=== PATIENT | female | born 1960 | race Caucasian/White ===

== ENCOUNTER 2023-04-13 08:37 | Outpatient (OUT) | payer OTHER, SELFPAY ==
--- NOTE | 2023-04-13 | PCN_ITS ---
CARDIAC STRESS TEST Requesting Physician: Procedure Date: 04/13/2023 This was a treadmill exercise stress test with myocardial perfusion imaging, performed at the [facility] on 04/13/2023. Informed consent was obtained. An intravenous line was secured. Baseline vital signs and ECG were obtained. The patient exercised on the treadmill according to the Naren protocol for 5 minutes and 45 seconds and reached stage 2 of the Naren protocol and achieved 7 METS. Resting heart rate was 65 BPM and maximum heart rate was 157 BPM, representing 100% of maximal predicted heart rate. Resting blood pressure was 124/68 and maximum blood pressure was 176/80. The patient had no chest pain during treadmill exercise. She developed dizziness and shortness of breath at the end of the test that resolved within 2 minutes of resting. Resting ECG showed sinus rhythm with PACs and non-specific ST segment depressions in leads 2, 3, AVF, V4, V5 and V6. ECG during treadmill exercise showed evidence of sinus rhythm and sinus tachycardia with occasional PACs. There were occasional PVCs. ECG at peak exercise and early recovery showed evidence of [address] segment depressions in leads 2, 3, AVF, V4, V5 and V6. Final ECG showed that the ST segment changes returned to nearly baseline at about 8 minutes into the recovery period. SUMMARY OF THE FINDINGS: 1. Abnormal treadmill exercise stress test with worsening of baseline ECG abnormalities and evidence of significant ST segment depressions in leads 2, 3, AVF and V4, V5 and V6. 2. Mildly elevated blood pressure at baseline with appropriate response to exercise. 3. Peralta treadmill score of -4 is associated with intermediate risk for custodial cardiac events. 4. Myocardial perfusion imaging will be reported separately. JANNY
--- NOTE | 2023-04-13 07:45 | NM_ITS ---
Patient Name: YENNIFER CAMP MR#: [id number] : 1960 Exam Date: 04/13/2023 Ordering Doctor: MRS. Grabiel Mares NP RADIOLOGY REPORT PROCEDURE: NM QUAN PERF SPECT REST STR COMPARISON: None. INDICATIONS: CHEST PAIN, CORONARY ARTERY DISEASE TECHNIQUE: Exam Description: Stress/Rest one day protocol gated SPECT Rest Imagin.0 mCi Tc-99m Cardiolite IV on 04/13/2023 Stress Imaging 30.3 mCi Tc-99m Cardiolite IV on 04/13/2023 Exercise Protocol: Naren Heart Rate (bpm): Rest: 65 Max: 157 PMHR: 100 Blood Pressure: Rest: 124/68 Max: 176/80 Exercise Time: Minutes: 5 Seconds: 45 Stage Reached: Stage: 2 Mets 7.0 Symptoms: Rest and peak stress ECG findings were pending and the exercise portion of the study was pending per attending physician Dr. CUENCA . For more details please see separate cardiac stress test report. FINDINGS: QUALITY OF STUDY: Good. PERFUSION DEFECT: None. LOCATION: N/A SIZE: N/A. SEVERITY: N/A. TYPE: N/A. WALL MOTION: Normal. LV SIZE: Normal. 49 mL. TID / TCD: None; 0.8 LVEF: Normal. Calculated EF 91%. SUMMARY: Myocardial perfusion imaging study is NORMAL. CONCLUSION: 1. Normal myocardial perfusion scan, no reversible ischemia 2. Pending exercise test results Dictated by: Sabino Chambers MD on 04/13/2023 at 14:35 Approved by: Sabino Chambers MD on 04/13/2023 at 15:04
--- OUTSIDE RECORDS SUMMARY | 2023-04-21 18:41 | XMS_ITS | CCD ---
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 Name Role Phone IGOR BRAKLEY Attending Unavailable IGOR BARKLEY Consulting Unavailable IGOR BARKLEY Admitting Unavailable KAIT ARCHER Admitting Unavailable KAIT ARCHER Attending Unavailable KAIT ARCHER Consulting Unavailable MD Kait Archer Primary Care Provider MD Dave Cantu Attending Provider DO Ghulam Thrasher Attending Provider [phone] MD Kait Archer Primary Care Provider MD Oscar Riojas Attending Provider [phone] Oscar Riojas Unavailable Addie [facility] Care Unavailable Oscar Riojas Admitting Unavaila Oscar Rene Attending Unavaila ble [facility] Dave Cantu Admitting Unavailable Dave Cantu [facility] Ghulam Thrasher Admitting Unavailable Ghulam Thrasher Attending Unavailable Oscar Riojas Admitting Unavaila ble Oscar Riojas Attending Unavaila ble [facility] Un[facility] DONALDO LUO Attending Unavailable AUGUSTO AGUILERA Attending Unavailable Allergies Allergy Classification Reported Allergen(s) Allergy Type Date of Onset Reaction(s) Facility (2 sources) Codeine; Translations: [CODEINE] Drug Allergy 01-05-2014 [facility] Repository (1 source) Codeine Drug Allergy Unknown AIRTAME Other (1 source) Unable to Assess Drug allergy (disorder) 09-20-2018 [facility] Repository (1 source) atorvastatin; Translations: [ATORVASTATIN] Drug Allergy 04-14-2023 [facility] Repository Medications Current Medications Medication Drug Class(es) Dates Sig (Normalized) Sig (Original) ibuprofen 200 mg oral capsule (1 source) Nonsteroidal Anti-inflammatory Drug take 1 capsule by mouth every eight hours Ibuprofen 200 MG 1 capsule with food or milk as needed Orally Three times a day Active latanoprost 0.05 mg/ml ophthalmic solution (1 source) Prostaglandin Analog take 1 drop(s) into the eye(s) once daily in the evening Latanoprost 0.005 % INSTILL 1 DROP IN BOTH EYES EVERY EVENING Ophthalmic for 25 Days Active loperamide hydrochloride 2 mg oral tablet (1 source) Opioid Agonist take 1 tablet by mouth every six hours Imodium A-D 2 MG 1 tablet as needed Orally Four times a day Active ProAir HFA 108 (90 Base) MCG/ACT (1 source) take 2 puff(s) by inhalation four times daily as needed ProAir HFA 108 (90 Base) MCG/ACT 2 puffs as needed Inhalation up to 4 times/day for 30 days Active Problems Problem Classification Problem Date Documented Date Episodic/Chronic Asthma (3 sources) Reactive airway disease; Translations: [Unspecified asthma, uncomplicated] Onset: 11-26-2021 Chronic Cardiac dysrhythmias (2 sources) Ventricular premature depolarization; Translations: [Ventricular premature depolarization] Onset: 04-14-2023 Chronic Cardiac dysrhythmias (2 sources) Palpitations; Translations: [Palpitations] Onset: 04-14-2023 Episodic Chronic obstructive pulmonary disease and bronchiectasis (1 source) Chronic obstructive lung disease; Translations: [Chronic obstructive pulmonary disease, unspecified] Chronic Coronary atherosclerosis and other heart disease (2 sources) Atherosclerotic heart disease of [place] coronary artery without angina pectoris; Translations: [Atherosclerotic heart disease of [place] coronary artery without angina pectoris] Onset: 03-05-2023 Chronic Immunizations and screening for infectious disease (4 sources) Contact with and (suspected) exposure to other viral communicable diseases; Translations: [CONTCT EXPS OTH VIRL COMMUNICABL DZ] Onset: 03-22-2020 Episodic Nonspecific chest pain (2 sources) Chest pain, unspecified; Translations: [Chest pain, unspecified] Onset: 03-05-2023 Episodic Osteoarthritis (1 source) Primary generalized (osteo)arthritis; Translations: [Primary generalized (osteo)arthritis] Onset: 2022 Chronic Other lower respiratory disease (1 source) Restrictive lung disease; Translations: [Other disorders of lung] Episodic Other lower respiratory disease (2 sources) Other disorders of lung; Translations: [Other disorders of lung] Onset: 10-23-2022 Episodic Pulmonary heart disease (2 sources) Pulmonary hypertension, unspecified; Translations: [Pulmonary hypertension, unspecified] Onset: 03-05-2023 Chronic Residual codes; unclassified (2 sources) Other specified postprocedural states; Translations: [Other specified postprocedural states] Onset: 04-14-2023 Episodic Unclassified (1 source) Encounter for screening mammogram for malignant neoplasm of breast; Translations: [Encounter for screening mammogram for malignant neoplasm of breast] Onset: 08-30-2022 Results Test Name Value Interpretation Reference Range Facil ity Office Visiton 04-14-2023 Follow-up visit [id number] Selam Yee 1960 F Date Provider Department Center 04/14/2023 DONALDO LORENZANA DELMY [facility] Family History Problem Relation Age of Onset Heart attack Mother Family Status - Relation Status Age at Mother Level of Service:95120 [place] OFFICE/OUTPATIENT ESTABLISHED MOD MDM 30-39 MIN Normal [facility] Office Visiton 03-05-2023 Follow-up visit [id number] Selam Yee 1960 F Date Provider Department Center 03/05/2023 AUGUSTO TILLEY DELMY [facility] Family History Problem Relation Age of Onset Heart attack Mother Family Status - Relation Status Age at Mother Level of Service:90848 [place] OFFICE/OUTPATIENT NEW MODERATE MDM 45-59 MINUTES Normal [facility] MM screening mammo BI w/CADo n 09-01-2022 MM screening mammo BI w/CAD [facility] [address] Mammography Report Signed Patient: Valerie Yee MR#: [id number] : 1960 Acct:[id number] Age/Sex: 62 / F ADM Date: 08/30/22 Loc: IN Room: Type: [facility] Attending Dr: Ghulam Thrasher DO Copies to: MD Ghulam Shi DO Ordering Provider: Ghulam Thrasher DO Date of Service: 08/30/22 MM/MM screening mammo BI w/CAD: screening;Encounter for screening mammogram for malignant ne CLINICAL DATA: Screening for malignancy. BILATERAL SCREENING MAMMOGRAMS - FULL FIELD DIGITAL WITH TOMOSYNTHESIS AND CAD Tomosynthesis craniocaudal and mediolateral oblique views of both breasts were obtained using low- dose digital technique. Comparison is made to prior studies from April 29, 2019 through August 03, 2021. This examination was reviewed with the aid of CAD. The breast parenchyma is heterogeneously dense. There are no dominant masses, typically malignant calcifications or architectural distortion. There has been no significant interval change. MM/MM screening mammo BI w/CAD IMPRESSION: NO MAMMOGRAPHIC EVIDENCE OF MALIGNANCY. ROUTINE FOLLOW-UP IS RECOMMENDED IN ONE YEAR. RESULT CODE: 1 Negative DENSITY CODE: 3 (approximately 51-75% glandular) FOLLOW UP: 1YR The false-negative rate of mammography is approximately 10-percent. Management of a palpable abnormality must be based on clinical grounds. Patient was entered into a reminder system with a target due date for the next mammogram. Impression dictated by: Dipti Dupree M.D.09/01/2022 7:14 AM Dictation Location: [facility] Transcribed By: PATTI 09/01/22 07 Dictated By: Dipti Dupree MD 09/01/2212 Signed By: 09/01/2214 Normal [facility] Alanine aminotransferase [En zymatic activity/volume] in Serum or PlasmaOrdered By: Torrey Cantu on 2022 ALT [Catalytic activity/Vol] 37 U/L 7-52 [facility] Albumin [Mass/volume] in Ser um or Plasma by Bromocresol green (BCG) dye binding methoOrdered By: Torrey Cantu on 2022 Albumin BCG dye [Mass/Vol] 4.7 g/dL 3.5-5.7 [facility] Alkaline phosphatase [Enzyma tic activity/volume] in Serum or PlasmaOrdered By: Torrey Cantu on 2022 ALP [Catalytic activity/Vol] 112 U/L 34-104 [facility] Aspartate aminotransferase [ Enzymatic activity/volume] in Serum or PlasmaOrdered By: Torrey Cantu on 2022 AST [Catalytic activity/Vol] 23 U/L 13-39 [facility] Basophils Auto (Bld) [#/Vol] Ordered By: Torrey Cantu on 2022 Basophils (Bld) [#/Vol] 0.0 10*3/uL 0.0-0.2 [facility] Basophils/100 WBC Auto (Bld) Ordered By: Torrey Cantu on 2022 Basophils/100 WBC (Bld) 0.6 % . [facility] Bilirubin Test strip Ql (U)O rdered By: Torrey Cantu on 2022 Bilirubin Ql (U) Negative Negative [facility] Bilirubin.total [Mass/volume ] in Serum or PlasmaOrdered By: Torrey Cantu on 2022 Bilirubin [Mass/Vol] 0.9 mg/dL 0.3-1.0 [facility] Calcium [Mass/volume] in Ser um or PlasmaOrdered By: Torrey Cantu on 2022 Calcium [Mass/Vol] 9.6 mg/dL 8.6-10.3 [facility] Carbon dioxide, total [Moles /volume] in Serum or PlasmaOrdered By: Torrey Cantu on 2022 CO2 [Moles/Vol] 28.4 mmol/L 21.0-31.0 [facility] Chloride [Moles/volume] in S jus or PlasmaOrdered By: Torrey Cantu on 2022 Chloride [Moles/Vol] 105 mmol/L 98-107 [facility] Color Auto (U)Ordered By: Rebekah Cantu on 2022 Color (U) Yellow Yellow [facility] Complement C3on 2022 Complement C3 155 mg/dL Normal 82-167 [facility] Comment on above: Result Comment: Perf ormed at: CB - [facility] [id number] Photoengraver Apprentice: Sd Lombardo PhD, Phone: [phone] Performed By: #### C BC, ESR, CMP, UA #### [address] #### C4, CH50, C3 #### [facility] , Complement C4on 2022 Complement C4 32 mg/dL Normal 12-38 [facility] Comment on above: Result Comment: PERF ORMED BY: [place] [address] PATHOLOGIST ORGANIC CHEMISTRY PROFESSOR MELODIE GILES M.D. Performed By: #### C BC, ESR, CMP, UA #### [address] #### C4, CH50, C3 #### [facility] , Complement Total (CH50)on Complement Total (CH50) >60 Normal >41 [facility] Comment on above: Result Comment: Age Male Female 1 - 30 days Not Estab. Not Estab. 31 days - 6 months >32 >20 7 months - 17 years >39 >39 >17 years >41 >41 NOTE: The adult ( >17 years ) reference interval range is used to flag abnormals on this report. If the patient is 17 years old or younger, use the table above to determine out of range values. Performed at: - [facility] [id number] Photoengraver Apprentice: Sd Lombardo PhD, Phone: [phone] PERFORMED BY: [place] [address] PATHOLOGIST ORGANIC CHEMISTRY PROFESSOR MELODIE GILES M.D. Performed By: #### C BC, ESR, CMP, UA #### [address] #### C4, CH50, C3 #### [facility] , Complete Blood Count Auto Di ffon 2022 Basophils (Bld) [#/Vol] 0.0 10*3/uL Normal 0.0-0.2 [facility] Comment on above: Performed By: #### C BC, ESR, CMP, UA #### [facility] [address] [place] [address] [place] #### C4, CH50, C3 #### [facility] , Basophils/100 WBC (Bld) 0.6 % Normal . [facility] Comment on above: Performed By: #### C BC, ESR, CMP, UA #### [place] [address] [place] #### C4, CH50, C3 #### [facility] , Eosinophils (Bld) [#/Vol] 0.1 10*3/uL Normal 0.0-0.45 [facility] Comment on above: Performed By: #### C BC, ESR, CMP, UA #### [place] [address] [place] #### C4, CH50, C3 #### [facility] , Eosinophils/100 WBC (Bld) 2.0 % Normal . [facility] Comment on above: Performed By: #### C BC, ESR, CMP, UA #### [place] [address] [place] #### C4, CH50, C3 #### [facility] , Erythrocyte distribution wid th (RBC) [Ratio] 13.5 % Normal 11.9-15.3 [facility] Comment on above: Performed By: #### C BC, ESR, CMP, UA #### [facility] [address] [place] [address] [place] #### C4, CH50, C3 #### [facility] , Hematocrit (Bld) [Volume fraction] 41.0 % Normal 34.0-46.4 [facility] Comment on above: Performed By: #### C BC, ESR, CMP, UA #### [facility] [address] [place] [address] [place] #### C4, CH50, C3 #### [facility] , Hemoglobin (Bld) [Mass/Vol] 13.6 g/dL Normal 11.8-15. 4 [facility] Comment on above: Performed By: #### C BC, ESR, CMP, UA #### [facility] [address] [place] [address] [place] #### C4, CH50, C3 #### [facility] , Lymphocytes (Bld) [#/Vol] 1.2 10*3/uL Normal 1.00-4.8 [facility] Comment on above: Performed By: #### C BC, ESR, CMP, UA #### [address] #### C4, CH50, C3 #### [facility] , Lymphocytes/100 WBC (Bld) 21.0 % Normal . [facility] Comment on above: Performed By: #### C BC, ESR, CMP, UA #### [facility] [address] [place] [address] [place] #### C4, CH50, C3 #### [facility] , MCH (RBC) [Entitic mass] 29.2 pg Normal 24.7-34.3 [facility] Comment on above: Performed By: #### C BC, ESR, CMP, UA #### [place] [address] [place] #### C4, CH50, C3 #### [facility] , MCV (RBC) [Entitic vol] 87.7 fL Normal 80-100 [facility] Comment on above: Performed By: #### C BC, ESR, CMP, UA #### [place] [address] [place] #### C4, CH50, C3 #### [facility] , Mean Corpuscular HGB Conc 33.3 g/dL Normal 32.0-35.0 [facility] Comment on above: Performed By: #### C BC, ESR, CMP, UA #### [facility] [address] [place] [address] [place] #### C4, CH50, C3 #### [facility] , Monocytes (Bld) [#/Vol] 0.3 10*3/uL Normal 0.0-0.8 [facility] Comment on above: Performed By: #### C BC, ESR, CMP, UA #### [facility] [address] [place] [address] [place] #### C4, CH50, C3 #### [facility] , Monocytes/100 WBC (Bld) 5.7 % Normal . [facility] Comment on above: Performed By: #### C BC, ESR, CMP, UA #### [facility] [address] [place] [address] [place] #### C4, CH50, C3 #### [facility] , Neutrophils (Bld) [#/Vol] 4.0 10*3/uL Normal 1.8-7.7 [facility] Comment on above: Performed By: #### C BC, ESR, CMP, UA #### [facility] [address] [place] [address] [place] #### C4, CH50, C3 #### [facility] , Neutrophils/100 WBC (Bld) 70.7 % Normal . [facility] Comment on above: Performed By: #### C BC, ESR, CMP, UA #### [facility] [address] [place] [address] [place] #### C4, CH50, C3 #### [facility] , NRBC% 0.0 /100{WBC} Normal 0-0.5 [facility] Comment on above: Performed By: #### C BC, ESR, CMP, UA #### [facility] [address] [place] [address] #### C4, CH50, C3 #### [facility] , Platelet mean volume (Bld) [Entitic vol] 8.8 fL Normal 6.3-10.7 [facility] Comment on above: Performed By: #### C BC, ESR, CMP, UA #### [facility] [address] [place] [address] [place] #### C4, CH50, C3 #### [facility] , Platelets (Bld) [#/Vol] 166 10*3/uL Normal 150-450 [facility] Comment on above: Performed By: #### C BC, ESR, CMP, UA #### [facility] [address] [place] [address] #### C4, CH50, C3 #### [facility] , RBC (Bld) [#/Vol] 4.67 10*6/uL Normal 3.60-5.00 [facility] Comment on above: Performed By: #### C BC, ESR, CMP, UA #### [facility] [address] [place] [address] #### C4, CH50, C3 #### [facility] , WBC (Bld) [#/Vol] 5.6 10*3/uL Normal 3.8-11.6 [facility] Comment on above: Performed By: #### C BC, ESR, CMP, UA #### [place] [address] [place] #### C4, CH50, C3 #### [facility] , Comprehensive Metabolic Pane omar 2022 Albumin [Mass/Vol] 4.7 g/dL Normal 3.5-5.7 [facility] Comment on above: Performed By: #### C BC, ESR, CMP, UA #### [facility] [address] [place] [address] [place] #### C4, CH50, C3 #### [facility] , Albumin/Globulin [Mass ratio] 2.0 {ratio} Normal [facility] Comment on above: Performed By: #### C BC, ESR, CMP, UA #### [facility] [address] [place] [address] #### C4, CH50, C3 #### [facility] , ALP [Catalytic activity/Vol] 112 U/L High 34-104 [facility] Comment on above: Result Comment: PERF ORMED BY: [place] [address] PATHOLOGIST ORGANIC CHEMISTRY PROFESSOR MELODIE GILES M.D. Performed By: #### C BC, ESR, CMP, UA #### [address] #### C4, CH50, C3 #### [facility] , ALT [Catalytic activity/Vol] 37 U/L Normal 7-52 [facility] Comment on above: Performed By: #### C BC, ESR, CMP, UA #### [facility] [address] [place] [address] #### C4, CH50, C3 #### [facility] , Anion gap [Moles/Vol] 10.6 mmol/L Normal 6.0-15.0 [facility] Comment on above: Performed By: #### C BC, ESR, CMP, UA #### [facility] [address] [place] [address] [place] #### C4, CH50, C3 #### [facility] , AST [Catalytic activity/Vol] 23 U/L Normal 13-39 [facility] Comment on above: Performed By: #### C BC, ESR, CMP, UA #### [facility] [address] [place] [address] #### C4, CH50, C3 #### [facility] , Bilirubin [Mass/Vol] 0.9 mg/dL Normal 0.3-1.0 [facility] Comment on above: Performed By: #### C BC, ESR, CMP, UA #### [facility] [address] [place] [address] [place] #### C4, CH50, C3 #### [facility] , Calcium [Mass/Vol] 9.6 mg/dL Normal 8.6-10.3 [facility] Comment on above: Performed By: #### C BC, ESR, CMP, UA #### [place] [address] [place] #### C4, CH50, C3 #### [facility] , Chloride [Moles/Vol] 105 mmol/L Normal 98-107 [facility] Comment on above: Performed By: #### C BC, ESR, CMP, UA #### [facility] [address] [place] [address] [place] #### C4, CH50, C3 #### [facility] , CO2 [Moles/Vol] 28.4 mmol/L Normal 21.0-31.0 [facility] Comment on above: Performed By: #### C BC, ESR, CMP, UA #### [facility] [address] [place] [address] #### C4, CH50, C3 #### [facility] , Creatinine [Mass/Vol] 0.84 mg/dL Normal 0.60-1.20 [facility] Comment on above: Performed By: #### C BC, ESR, CMP, UA #### [facility] [address] [place] [address] [place] #### C4, CH50, C3 #### [facility] , GFR/1.73 sq M.predicted MDRD (S/P/Bld) [Vol rate/Area] mL/min/{1.73_m2} Normal [facility] Comment on above: Performed By: #### C BC, ESR, CMP, UA #### [facility] [address] [place] [address] [place] #### C4, CH50, C3 #### [facility] , Globulin (S) [Mass/Vol] 2.3 g/dL Normal [facility] Comment on above: Performed By: #### C BC, ESR, CMP, UA #### [place] [address] [place] #### C4, CH50, C3 #### [facility] , Glucose [Mass/Vol] 94 mg/dL Normal 74-109 [facility] Comment on above: Result Comment: [facility] Glucose Reference Range is dependent on time and content of last meal. Glucose of more than 200 mg/dL in a nonstressed, ambulatory subject supports the diagnosis of Diabetes Mellitus. ADA recommended reference range Performed By: #### C BC, ESR, CMP, UA #### [place] [address] [place] #### C4, CH50, C3 #### [facility] , Potassium [Moles/Vol] 4.0 mmol/L Normal 3.5-5.1 [facility] Comment on above: Performed By: #### C BC, ESR, CMP, UA #### [place] [address] [place] #### C4, CH50, C3 #### [facility] , Protein [Mass/Vol] 7.0 g/dL Normal 6.4-8.9 [facility] Comment on above: Performed By: #### C BC, ESR, CMP, UA #### [place] [address] [place] #### C4, CH50, C3 #### [facility] , Sodium [Moles/Vol] 140 mmol/L Normal 136-145 [facility] Comment on above: Performed By: #### C BC, ESR, CMP, UA #### [place] [address] [place] #### C4, CH50, C3 #### [facility] , Urea nitrogen [Mass/Vol] 15 mg/dL Normal 7-25 [facility] Comment on above: Performed By: #### C BC, ESR, CMP, UA #### [facility] [address] [place] [address] #### C4, CH50, C3 #### [facility] , Creatinine [Mass/volume] in Serum or PlasmaOrdered By: Torrey Cantu on 2022 Creatinine [Mass/Vol] 0.84 mg/dL 0.60-1.20 [facility] Eosinophils Auto (Bld) [#/Vo l]Ordered By: Torrey Cantu on 2022 Eosinophils (Bld) [#/Vol] 0.1 10*3/uL 0.0-0.45 [facility] Eosinophils/100 WBC Auto (Bl d)Ordered By: Torrey Cantu on 2022 Eosinophils/100 WBC (Bld) 2.0 % . [facility] Erythrocyte Sedimentation Ra nikita 2022 ESR (Bld) [Velocity] 12 mm/h Normal 0-29 [facility] Comment on above: Result Comment: PERF ORMED BY: [place] [address] PATHOLOGIST ORGANIC CHEMISTRY PROFESSOR MELODIE GILES M.D. Performed By: #### C BC, ESR, CMP, UA #### [facility] [address] [place] [address] #### C4, CH50, C3 #### [facility] , Erythrocyte distribution wid th Auto (RBC) [Ratio]Ordered By: Torrey Cantu on 2022 Erythrocyte distribution wid th (RBC) [Ratio] 13.5 % 11.9-15.3 [facility] Erythrocyte sedimentation ra te by Photometric methodOrdered By: Torrey Cantu on 2022 ESR Photometric method (Bld) [Velocity] 12 mm/hr 0-29 [facility] Globulin Calc (S) [Mass/Vol] Ordered By: Torrey Cantu on 2022 Globulin (S) [Mass/Vol] 2.3 g/dL [facility] Glucose [Mass/volume] in Ser um or PlasmaOrdered By: Torrey Cantu on 2022 Glucose [Mass/Vol] 94 mg/dL 74-109 [facility]placed By [facility] Comment on above: ADA recommended refe rence rangeRandom Glucose Reference Range is dependent on time and content of last meal. Glucose of more than 200 mg/dL in a nonstressed, ambulatory subject supports the diagnosis of Diabetes Mellitus. Hematocrit Auto (Bld) [Volum e fraction]Ordered By: Torrey Cantu on 2022 Hematocrit (Bld) [Volume fraction] 41.0 % 3 4.0-46.4 [facility] Hemoglobin [Mass/volume] in BloodOrdered By: Torrey Cantu on 2022 Hemoglobin (Bld) [Mass/Vol] 13.6 g/dL 11.8-15. 4 [facility] Ketones Auto test strip (U) [Mass/Vol]Ordered By: Torrey Cantu on 2022 Ketones (U) [Mass/Vol] Negative Negative [facility] - Chemistry and C hemistry - challengeOrdered By: Torrey Cantu on 2022 GFR/1.73 sq M.predicted MDRD (S/P/Bld) [Vol rate/Area] mL/min/{1.73_m2} [facility] Leukocytes [#/volume] correc gurjit for nucleated erythrocytes in Blood by Automated counOrdered By: Torrey Cantu on 2022 WBC corrected for nucl RBC A uto (Bld) [#/Vol] 5.6 10*3/uL 3.8-11.6 [facility] Lymphocytes Auto (Bld) [#/Vo l]Ordered By: Torrey Cantu on 2022 Lymphocytes (Bld) [#/Vol] 1.2 10*3/uL 1.00-4.8 [facility] Lymphocytes/100 WBC Auto (Bl d)Ordered By: Torrey Cantu on 2022 Lymphocytes/100 WBC (Bld) 21.0 % . [facility] MCH Auto (RBC) [Entitic mass ]Ordered By: Torrey Cantu on 2022 MCH (RBC) [Entitic mass] 29.2 pg 24.7-34.3 [facility] MCHC Auto (RBC) [Mass/Vol]Or dered By: Torrey Cantu on 2022 MCHC (RBC) [Mass/Vol] 33.3 g/dL 32.0-35.0 [facility] MCV Auto (RBC) [Entitic vol] Ordered By: Torrey Cantu on 2022 MCV (RBC) [Entitic vol] 87.7 fL 80-100 [facility] Monocytes Auto (Bld) [#/Vol] Ordered By: Torrey Cantu on 2022 Monocytes (Bld) [#/Vol] 0.3 10*3/uL 0.0-0.8 [facility] Monocytes/100 WBC Auto (Bld) Ordered By: Torrey Cantu on 2022 Monocytes/100 WBC (Bld) 5.7 % . [facility] Neutrophils Auto (Bld) [#/Vo l]Ordered By: Torrey Cantu on 2022 Neutrophils (Bld) [#/Vol] 4.0 10*3/uL 1.8-7.7 [facility] Neutrophils/100 WBC Auto (Bl d)Ordered By: Torrey Cantu on 2022 Neutrophils/100 WBC (Bld) 70.7 % . [facility] Nitrite Test strip Ql (U)Ord ered By: Torrey Cantu on 2022 Nitrite Ql (U) Negative Negative [facility] No Panel InformationOrdered By: Torrey Cantu on 2022 Pharmacy Creatinine Clearance (Chem N/A [facility] Total Complement (CH50) >60 U/mL >41 [facility] Comment on above: Age Male Female 1 - 30 days Not Estab. Not Estab. 31 days - 6 months >32 >20 7 months - 17 years >39 >39 >17 years >41 >41 NOTE: The adult ( >17 years ) reference interval range is used to flag abnormals on this report. If the patient is 17 years old or younger, use the table above to determine out of range values.Performed at: [facility] [id number] Director: Sd Lombardo PhD, Phone: [phone] Nucleated erythrocytes [Pres ence] in Blood by Automated countOrdered By: Torrey Cantu on 2022 Nucleated RBC Auto Ql (Bld) 0.0 /100{WBC} 0-0.5 [facility] Platelet mean volume Auto (B ld) [Entitic vol]Ordered By: Torrey Cantu on 2022 Platelet mean volume (Bld) [Entitic vol] 8.8 fL 6.3-10.7 [facility] Platelets Auto (Bld) [#/Vol] Ordered By: Torrey Cantu on 2022 Platelets (Bld) [#/Vol] 166 10*3/uL 150-450 [facility] Potassium [Moles/volume] in Serum or PlasmaOrdered By: Torrey Cantu on 2022 Potassium [Moles/Vol] 4.0 mmol/L 3.5-5.1 [facility] Protein Auto test strip (U) [Mass/Vol]Ordered By: Torrey Cantu on 2022 Protein (U) [Mass/Vol] Negative Negative [facility] Protein [Mass/volume] in Ser um or PlasmaOrdered By: Torrey Cantu on 2022 Protein [Mass/Vol] 7.0 g/dL 6.4-8.9 [facility] RBC Auto (Bld) [#/Vol]Ordere d By: Torrey Cantu on 2022 RBC (Bld) [#/Vol] 4.67 10*6/uL 3.60-5.00 [facility] Serum or plasma albumin/glob ulin mass ratioOrdered By: Torrey Cantu on 2022 Albumin/Globulin [Mass ratio] 2.0 {ratio} [facility] Serum or plasma anion gap de terminationOrdered By: Torrey Cantu on 2022 Anion gap [Moles/Vol] 10.6 mmol/L 6.0-15.0 [facility] Serum or plasma complement C 3 measurement (mass/volume)Ordered By: Torrey Cantu on 2022 Complement C3 [Mass/Vol] 155 mg/dL 82-167 [facility] Comment on above: Performed at: [place] [id number] Director: Sd Lombardo PhD, Phone: [phone] Serum or plasma complement C 4 measurement (mass/volume)Ordered By: Torrey Cantu on 2022 Complement C4 [Mass/Vol] 32 mg/dL 12-38 [facility] Sodium [Moles/volume] in Ser um or PlasmaOrdered By: Torrey Cantu on 2022 Sodium [Moles/Vol] 140 mmol/L 136-145 [facility] Specific gravity Auto test s trip (U) [Rel density]Ordered By: Torrey Cantu on 2022 Specific gravity (U) [Rel density] 1.008 1.001-1.030 [facility] Urea nitrogen [Mass/volume] in Serum or PlasmaOrdered By: Torrey Cantu on 2022 Urea nitrogen [Mass/Vol] 15 mg/dL 7-25 [facility] Urinalysison 2022 Appearance (U) Clear Normal Clear [facility] Comment on above: Order Comment: Name Collection Type:: Clean-Voided Midstream Performed By: #### C BC, ESR, CMP, UA #### [facility] [address] [place] [address] [place] #### C4, CH50, C3 #### [facility] , Bilirubin,Urine Negative Normal Negative [facility] Comment on above: Order Comment: Name Collection Type:: Clean-Voided Midstream Performed By: #### C BC, ESR, CMP, UA #### [facility] [address] [place] [address] [place] #### C4, CH50, C3 #### [facility] , Color (U) Yellow Normal Yellow [facility] Comment on above: Order Comment: Name Collection Type:: Clean-Voided Midstream Performed By: #### C BC, ESR, CMP, UA #### [facility] [address] [place] [address] #### C4, CH50, C3 #### [facility] , Glucose Ql (U) Normal Normal Normal [facility] Comment on above: Order Comment: Name Collection Type:: Clean-Voided Midstream Performed By: #### C BC, ESR, CMP, UA #### [address] #### C4, CH50, C3 #### [facility] , Ketones Ql (U) Negative Normal Negative [facility] Comment on above: Order Comment: Name Collection Type:: Clean-Voided Midstream Performed By: #### C BC, ESR, CMP, UA #### [address] #### C4, CH50, C3 #### [facility] , Leukocyte esterase Test stri p Ql (U) Negative Normal Negative [facility] Comment on above: Order Comment: Name Collection Type:: Clean-Voided Midstream Performed By: #### C BC, ESR, CMP, UA #### [facility] [address] [place] [address] #### C4, CH50, C3 #### [facility] , Nitrite,Urine Negative Normal Negative [facility] Comment on above: Order Comment: Name Collection Type:: Clean-Voided Midstream Performed By: #### C BC, ESR, CMP, UA #### [facility] [address] [place] [address] #### C4, CH50, C3 #### [facility] , Occult Blood,Urine Negative Normal Negative [facility] Comment on above: Order Comment: Name Collection Type:: Clean-Voided Midstream Result Comment: PERF ORMED BY: [place] [address] PATHOLOGIST ORGANIC CHEMISTRY PROFESSOR MELODIE GILES M.D. Performed By: #### C BC, ESR, CMP, UA #### [address] #### C4, CH50, C3 #### [facility] , pH (U) 5.5 [pH] Normal 5.0-9.0 [facility] Comment on above: Order Comment: Name Collection Type:: Clean-Voided Midstream Performed By: #### C BC, ESR, CMP, UA #### [address] #### C4, CH50, C3 #### [facility] , Protein,Urine Negative Normal Negative [facility] Comment on above: Order Comment: Name Collection Type:: Clean-Voided Midstream Performed By: #### C BC, ESR, CMP, UA #### [address] #### C4, CH50, C3 #### [facility] , Specificy [place],Urine 1.008 Normal 1.001-1.030 [facility] Comment on above: Order Comment: Name Collection Type:: Clean-Voided Midstream Performed By: #### C BC, ESR, CMP, UA #### [address] #### C4, CH50, C3 #### [facility] , Urobilinogen,Urine Normal Normal Normal [facility] Comment on above: Order Comment: Name Collection Type:: Clean-Voided Midstream Performed By: #### C BC, ESR, CMP, UA #### [address] #### C4, CH50, C3 #### [facility] , Urine clarity by refractomet ry automatedOrdered By: Torrey Cantu on 2022 Clarity Refractometry automated (U) Clear Clear [facility] Urine glucose measurement by automated test strip (mass/volume)Ordered By: Torrey Cantu on 2022 Glucose Auto test strip (U) [Mass/Vol] Normal mg/dL Normal [facility] Urine hemoglobin detection b y automated test stripOrdered By: Torrey Cantu on 2022 Hemoglobin Auto test strip Ql (U) Negative Ne gative [facility] Urine leukocyte esterase det ection by automated test stripOrdered By: Torrey Cantu on 2022 Leukocyte esterase Auto test strip Ql (U) Negative Negative [facility] Urobilinogen Auto test strip (U) [Mass/Vol]Ordered By: Torrey Cantu on 2022 Urobilinogen (U) [Mass/Vol] Normal mg/dL Normal [facility] WBC Auto (Bld) [#/Vol]Ordere d By: Torrey Cantu on 2022 WBC (Bld) [#/Vol] 5.6 10*3/uL 3.8-11.6 [facility] pH Auto test strip (U)Ordere d By: Torrey Cantu on 2022 pH (U) 5.5 [pH] 5.0-9.0 [facility] Comprehensive Metabolic Pane omar 09-19-2021 Albumin [Mass/Vol] 4.4 g/dL Normal 3.6-5.1 [facility] [employer] Comment on above: Performed By: #### V ITD, CMP, TSH, FT4 #### [facility] [address] [place], [place] [id number] Albumin/Globulin [Mass ratio] 1.8 {ratio} Normal 1.0-2 .5 [facility] [employer] Comment on above: Performed By: #### V ITD, CMP, TSH, FT4 #### [facility] [address] [place], [place] [id number] ALP [Catalytic activity/Vol] 114 U/L Normal 35-119 [facility] [employer] Comment on above: Performed By: #### V ITD, CMP, TSH, FT4 #### [facility] [address] [place], [place] [id number] ALT [Catalytic activity/Vol] 35 U/L High 6-33 [facility] Comment on above: Result Comment: 04/03 Female reference range changed. Performed By: #### V ITD, CMP, TSH, FT4 #### [facility] [address] [place], [place] [id number] Anion gap [Moles/Vol] 16 mmol/L Normal 12-20 [facility] Comment on above: Result Comment: Effe ctive 05/09/2019 reference range changed. Performed By: #### V ITD, CMP, TSH, FT4 #### [facility] [address] [place], [place] [id number] AST [Catalytic activity/Vol] 25 U/L Normal 9-34 [facility] Comment on above: Performed By: #### V ITD, CMP, TSH, FT4 #### [facility] [address] [place], [place] [id number] Bilirubin [Mass/Vol] 0.35 mg/dL Normal 0.30-1.20 [facility] Comment on above: Performed By: #### V ITD, CMP, TSH, FT4 #### [facility] [address] [place], [place] [id number] BUN/CREA 26 Ratio High 6-22 [facility] Comment on above: Performed By: #### V ITD, CMP, TSH, FT4 #### [facility] [address] [place], [place] [id number] Calcium [Mass/Vol] 9.4 mg/dL Normal 8.6-10.2 [facility] Comment on above: Performed By: #### V ITD, CMP, TSH, FT4 #### [facility] [address] [place], [place] [id number] Chloride [Moles/Vol] 106 mmol/L Normal 98-107 [facility] Comment on above: Performed By: #### V ITD, CMP, TSH, FT4 #### [facility] [address] [place], [place] [id number] CO2 [Moles/Vol] 25 mmol/L Normal 20-31 [facility] Comment on above: Performed By: #### V ITD, CMP, TSH, FT4 #### [facility] [address] [place], [place] [id number] Creatinine [Mass/Vol] 0.6 mg/dL Normal 0.6-1.4 [facility] Specialist Comment on above: Performed By: #### V ITD, CMP, TSH, FT4 #### [facility] [address] [place], [place] [id number] eGFRAA 135 mL/min/1.73m2 Normal >60 [facility] Specialist Comment on above: Performed By: #### V ITD, CMP, TSH, FT4 #### [facility] [address] [place], [place] [id number] eGFRNAA 112 mL/min/1.73m2 Normal >60 [facility] Specialist Comment on above: Performed By: #### V ITD, CMP, TSH, FT4 #### [facility] [address] [place], [place] [id number] Globulin (S) [Mass/Vol] 2.4 g/dL Normal 1.9-3.7 [facility] Comment on above: Performed By: #### V ITD, CMP, TSH, FT4 #### [facility] [address] [place], [place] [id number] Glucose [Mass/Vol] 97 mg/dL Normal 65-99 [facility] [employer] Comment on above: Result Comment: For FASTING Glucose --- ADA reference ranges: Normal 65-99 mg/dl Prediabetes 100-125 Diabetes >/= 126 Performed By: #### V ITD, CMP, TSH, FT4 #### [facility] [address] [place], [place] [id number] Potassium [Moles/Vol] 4.2 mmol/L Normal 3.5-5.5 [facility] Specialist Comment on above: Performed By: #### V ITD, CMP, TSH, FT4 #### [facility] [address] [place], [place] [id number] Protein [Mass/Vol] 6.8 g/dL Normal 6.1-8.1 [facility] Comment on above: Performed By: #### V ITD, CMP, TSH, FT4 #### [facility] [address] [place], [place] [id number] Sodium [Moles/Vol] 142 mmol/L Normal 135-146 [facility] Specialist Comment on above: Performed By: #### V ITD, CMP, TSH, FT4 #### [facility] [address] [place], [place] [id number] Urea nitrogen [Mass/Vol] 14 mg/dL Normal 7-25 [facility] Specialist Comment on above: Performed By: #### V ITD, CMP, TSH, FT4 #### [facility] [address] [place], [place] [id number] Free T4on 09-19-2021 Free T4 [Mass/Vol] 1.14 ng/dL Normal 0.80-1.80 [facility] Specialist Comment on above: Performed By: #### V ITD, CMP, TSH, FT4 #### [facility] [address] [place], [place] [id number] Hemoglobin A1Con 09-19-2021 EAG 114.02 Normal [facility] Specialist Comment on above: Performed By: #### A 1C #### [facility] [address] [place], [place] [id number] HbA1c (Bld) [Mass fraction] 5.6 % Normal 4.0-6.0 [facility] Specialist Comment on above: Performed By: #### A 1C #### [facility] [address] [place], [place] [id number] TSHon 09-19-2021 TSH 4.310 uIU/mL Normal 0.400-4.500 [facility] Dis[employer] Product Comment on above: Performed By: #### V ITD, CMP, TSH, FT4 #### [facility] [address] [place], [place] [id number] Vitamin D 25-OHon 09-19-2021 VIT D 25 OH 53 ng/ml Normal >29 [facility] Specialist Comment on above: Result Comment: Margaret min D Status Deficiency <20 ng/mL Insufficiency 20-29 ng/mL Optimal 30-100 ng/mL Possible Toxicity >=150 ng/mL Performed By: #### V ITD, CMP, TSH, FT4 #### [facility] [address] [place], [place] [id number] Complete Blood Counton 05-15 Erythrocyte distribution wid th (RBC) [Ratio] 12.9 % Normal 11.0-15.0 [facility] dicut Specialist Comment on above: Performed By: #### V ITD, CMP, CBC #### [facility] [address] [place], [place] [id number] Hematocrit (Bld) [Volume fraction] 37.8 % Normal 35.0-47.0 [facility] dicut Specialist Comment on above: Performed By: #### V ITD, CMP, CBC #### [facility] [address] [place], [place] [id number] Hemoglobin (Bld) [Mass/Vol] 12.1 g/dL Normal 11.6-15. 5 [facility] Specialist Comment on above: Performed By: #### V ITD, CMP, CBC #### [facility] [address] [place], [place] [id number] MCH (RBC) [Entitic mass] 28.9 pg Normal 27.0-33.0 [facility] Specialist Comment on above: Performed By: #### V ITD, CMP, CBC #### [facility] [address] [place], [place] [id number] MCHC (RBC) [Mass/Vol] 32.0 g/dL Normal 32.0-36.0 [facility] Specialist Comment on above: Performed By: #### V ITD, CMP, CBC #### [facility] [address] [place], [place] [id number] MCV (RBC) [Entitic vol] 90 fL Normal 80-100 N [facility] Specialist Comment on above: Performed By: #### V ITD, CMP, CBC #### [facility] [address] [place], [place] [id number] Platelet mean volume (Bld) [Entitic vol] 11.10 fL Normal 7.50-12.50 [facility] dicut Specialist Comment on above: Performed By: #### V ITD, CMP, CBC #### [facility] [address] [place], [place] [id number] Platelets (Bld) [#/Vol] 228 10*3/uL Normal 140-400 [facility] Specialist Comment on above: Performed By: #### V ITD, CMP, CBC #### [facility] [address] [place], [place] [id number] RBC (Bld) [#/Vol] 4.19 10*6/uL Normal 3.90-5.20 [facility] Dis[employer] Product Comment on above: Performed By: #### V ITD, CMP, CBC #### [facility] [address] [place], [place] [id number] RDW-SD 41.5 fL Normal 37.0-50.0 [facility] Specialist Comment on above: Performed By: #### V ITD, CMP, CBC #### [facility] [address] [place], [place] [id number] WBC (Bld) [#/Vol] 5.6 10*3/uL Normal 3.8-11.0 [facility] Dis[employer] Comment on above: Performed By: #### V ITD, CMP, CBC #### [facility] [address] [place], [place] [id number] Comprehensive Metabolic Pane [facility] 05-15-2021 Albumin [Mass/Vol] 4.2 g/dL Normal 3.6-5.1 [facility] [employer] Comment on above: Performed By: #### V ITD, CMP, CBC #### [facility] [address] [place], [place] [id number] Albumin/Globulin [Mass ratio] 2.1 {ratio} Normal 1.0-2 .5 [facility] Specialist Comment on above: Performed By: #### V ITD, CMP, CBC #### [facility] [address] [place], [place] [id number] ALP [Catalytic activity/Vol] 90 U/L Normal 35-119 [facility] Specialist Comment on above: Performed By: #### V ITD, CMP, CBC #### [facility] [address] [place], [place] [id number] ALT [Catalytic activity/Vol] 39 U/L High 6-33 [facility] Dis[employer] Comment on above: Result Comment: 04/03 Female reference range changed. Performed By: #### V ITD, CMP, CBC #### [facility] [address] [place], [place] [id number] Anion gap [Moles/Vol] 15 mmol/L Normal 12-20 [facility] Comment on above: Result Comment: Effcatherine ctive 05/09/2019 reference range changed. Performed By: #### V ITD, CMP, CBC #### [facility] [address] [place], [place] [id number] AST [Catalytic activity/Vol] 25 U/L Normal 9-34 [facility] Comment on above: Performed By: #### V ITD, CMP, CBC #### [facility] [address] [place], [place] [id number] Bilirubin [Mass/Vol] 0.32 mg/dL Normal 0.30-1.20 [facility] Comment on above: Performed By: #### V ITD, CMP, CBC #### [facility] [address] [place], [place] [id number] BUN/CREA 20 Ratio Normal 6-22 [facility] Comment on above: Performed By: #### V ITD, CMP, CBC #### [facility] [address] [place], [place] [id number] Calcium [Mass/Vol] 9.1 mg/dL Normal 8.6-10.2 [facility] Comment on above: Performed By: #### V ITD, CMP, CBC #### [facility] [address] [place], [place] [id number] Chloride [Moles/Vol] 108 mmol/L High 98-107 [facility] Comment on above: Performed By: #### V ITD, CMP, CBC #### [facility] [address] [place], [place] [id number] CO2 [Moles/Vol] 25 mmol/L Normal 20-31 [facility] Comment on above: Performed By: #### V ITD, CMP, CBC #### [facility] [address] [place], [place] [id number] Creatinine [Mass/Vol] 0.6 mg/dL Normal 0.6-1.4 [facility] Comment on above: Performed By: #### V ITD, CMP, CBC #### [facility] [address] [place], [place] [id number] eGFRAA 128 mL/min/1.73m2 Normal >60 [facility] Specialist Comment on above: Performed By: #### V ITD, CMP, CBC #### [facility] [address] [place], [place] [id number] eGFRNAA 105 mL/min/1.73m2 Normal >60 [facility] Specialist Comment on above: Performed By: #### V ITD, CMP, CBC #### [facility] [address] [place], [place] [id number] Globulin (S) [Mass/Vol] 2.0 g/dL Normal 1.9-3.7 [facility] Comment on above: Performed By: #### V ITD, CMP, CBC #### [facility] [address] [place], [place] [id number] Glucose [Mass/Vol] 106 mg/dL High 65-99 [facility] [employer] Comment on above: Result Comment: For FASTING Glucose --- ADA reference ranges: Normal 65-99 mg/dl Prediabetes 100-125 Diabetes >/= 126 Performed By: #### V ITD, CMP, CBC #### [facility] [address] [place], [place] [id number] Potassium [Moles/Vol] 4.2 mmol/L Normal 3.5-5.5 [facility] Comment on above: Performed By: #### V ITD, CMP, CBC #### [facility] [address] [place], [place] [id number] Protein [Mass/Vol] 6.2 g/dL Normal 6.1-8.1 [facility] Dis[employer] Comment on above: Performed By: #### V ITD, CMP, CBC #### [facility] [address] [place], [place] [id number] Sodium [Moles/Vol] 143 mmol/L Normal 135-146 [facility] Dis[employer] Comment on above: Performed By: #### V ITD, CMP, CBC #### [facility] [address] [place], [place] [id number] Urea nitrogen [Mass/Vol] 12 mg/dL Normal 7-25 [facility] Specialist Comment on above: Performed By: #### V ITD, CMP, CBC #### [facility] [address] [place], [place] [id number] Q - D-DIMER,QUANTITATIVEon 0 05-15-2021 D-DIMER, QUANTITATIVE 4.37 mcg/mL FEU High <0.50 [facility] Dis[employer] Comment on above: Order Comment: [facility] performed at: Q, [facility], [address], [address] [place], [address], Pediatric Dentist: Chalino Mondragon MDQuest Collection Date/Time: [id number] Results Received Date/Time: [id number] Reported Date/Time: FASTING: NO Result Comment: The D-Dimer test is used frequently to exclude an acute PE or DVT. In patients with a low to moderate clinical risk assessment and a D-Dimer result <0.50 mcg/mL FEU, the likelihood of a PE or DVT is very low. However, a thromboembolic event should not be excluded solely on the basis of the D-Dimer level. Increased levels of D-Dimer are associated with a PE, DVT, DIC, malignancies, inflammation, sepsis, surgery, trauma, , and advancing patient age. [Cesar 2006 11:295(2):199-207] For additional information, please refer to: http://education.GROU.PS/faq/GTM982 (This link is being provided for informational/ educational purposes only) Performed By: #### V ITD, CMP, CBC #### [facility] [address] [place], [place] [id number] Vitamin D 25-OHon 05-15-2021 VIT D 25 OH 26 ng/ml Low >29 [facility] Dis[employer] Comment on above: Result Comment: Margaret min D Status Deficiency <20 ng/mL Insufficiency 20-29 ng/mL Optimal 30-100 ng/mL Possible Toxicity >=150 ng/mL Performed By: #### V ITD, CMP, CBC #### [facility] [address] [place], [place] [id number] XR Chest 2 Views*on 05-15-19 XR Chest 2 Views* FINDINGS: Mild bibasilar interstitial prominence (slightly more conspicuous than November 22, 2020) with underlying increased lung volumes suggesting COPD. No pulmonary edema, pleural effusions, or lymphadenopathy. Intact sternotomy wires. Normal cardiac silhouette size. IMPRESSION: Subtle bibasilar prominence most consistent with a viral (COVID) infectious process with underlying COPD Report reported and signed by Camilo Blount on 05/16/2021 0705 Normal [facility] 11-17-2020 [facility] HNO ID: [id number] Author: RT Luis Carlos(R) Service: Radiology Author Type: Director Communications Type: [facility] Filed: 11/17/2020 10:34 AM Note Text: Radiology Service Progress Note PATIENT NAME: Valerie Yee DATE OF SERVICE: November 17, 2020 TIME: 10:33 AM PATIENT IDENTITY VERIFICATION COMPLETED USING TWO (2) IDENTIFIERS: Name and Date of confirmed by patient verbally and Name and Date of confirmed by identification band. FALL SCREENING: Has the patient had 2 falls in the last year or 1 fall with injury or currently using an Ambulatory Assistive Device (Walker, Cane, Wheelchair, Crutches, etc.)? No PATIENT GENDER DATA: Female. status: : No status: NO. PATIENT RELEVANT IMPLANT DATA REVIEWED: Yes RADIOLOGY DEPARTMENT: MR; Exam(s) Completed: Head: Routine Brain PERIPHERAL IV DATA: PATIENT REFUSED CONTRAST SIGNED BY: RT Luis Carlos(R) November 17, 2020 10:33 AM [facility] MRI BRAIN WO IVCONon 021 MRI BRAIN WO IVCON * * *Final Report* * * DATE OF EXAM: Nov 17 2020 10:45AM [facility] 0294 - MRI BRAIN WO IVCON / PROCEDURE REASON: Neoplasm of uncertain behavior of brain, supratentorial (HCC) * * * * Physician Interpretation * * * * EXAMINATION: MRI BRAIN WO IVCON CLINICAL HISTORY: Right frontal multilocular cystic mass, MRI surveillance TECHNIQUE: Routine noncontrast MRI protocol including diffusion images. MQ: [id number] COMPARISON: MRI brain 11/10/2019, 03/16/2019 RESULT: Mass Lesion/ Mass Effect: No substantial interval change in size or configuration of the multicystic lobulated T2 hyperintense mass in the right frontal lobe centered within the right frontal centrum semiovale with extension into the right superior and middle frontal gyri with thinning of the overlying cortex, compared to the prior MRI. Again noted are internal septations with heterogeneous FLAIR an T1 signal of the cystic components. Overall dimensions measure approximately 3.8 x 2.8 x 3.5 cm. No significant mass effect. No associated parenchymal edema. No evidence of other intracranial mass or significant mass effect. Acute Change: There is no evidence of restricted diffusion to suggest an acute infarct. Hemorrhage: Punctate foci of susceptibility along the septations within the cystic right frontal lobe mass, could reflect calcification. No evidence of prior parenchymal hemorrhage on the susceptibility weighted images. Chronic Change: Scattered patchy and confluent areas of increased T2 and FLAIR signal are present in the patricia and supratentorial white matter which is nonspecific but likely represents chronic microvascular ischemia. Findings are similar to the prior MRI. Small remote lacunar infarcts in the bilateral lentiform nuclei. Parenchyma: No significant volume loss for age. The brain parenchyma is otherwise within normal limits of signal intensity and morphology. Ventricles: Normal caliber and morphology. Skull Base: Hypothalamic and pituitary region are grossly normal. Craniocervical junction is normal. No significant marrow replacement process. Vasculature: Major intracranial arterial structures, and dural venous sinuses show typical flow void, suggesting patency by spin echo criteria. Other: Lobulated mucosal thickening in the left posterior ethmoid air cells. The visualized paranasal sinuses and mastoid air cells are otherwise clear. The orbits and extracranial soft tissues are unremarkable. IMPRESSION: Stable MRI of the brain compared to 11/10/2019 with stable size and configuration of the multicystic right frontal lobe mass. 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: [facility] Transcribe Date/Time: Nov 17 2020 11:35A Dictated by : TIERRA ANSARI MD This examination was interpreted and the report reviewed and electronically signed by: TIERRA ANSARI MD on Nov 17 2020 11:45AM EST [id number] [facility] 11-13-2020 ALEJANDRO Telephone (NSCAMN) VALERIE YEE ([id number]) 1960 F Date Time Provider Department 11/13/20 SIVAKUMAR ANGUIANOAMN During your visit today, we recorded the following information about you: Minerva Zhao Adm 11/13/2020 12:35 PM Signed General Call Caller : Valerie Contact Reason for Call : Pt is currently scheduled for MRI on 11/17/20 but was told by her insurance company the authorization expires on 11/07/20. She is requesting an extension for the current order or a new MRI order to be placed in [facility]. Patient requesting return call ? Yes, please let pt know if the appt should be rescheduled. Nancy Paniagua RN 11/13/2020 2:33 PM Signed Returned call to patient I will place new MRI order, then ask scheduling to link it to the MRI appointment scheduled for 11/17/2020. Once completed, it's recommended that she have a virtual visit with Dr. Anguiano. I'll ask scheduling to coordinate that too. Selam verbalized understanding, had no further questions or concerns. Allergies As of Date: 11/13/2020 Noted Allergy Reaction CODEINE 01/05/2014 11 - Vomiting Date Reviewed: 11/10/2019 Reviewed by: Kait Gorman (Rn) MAURA Huertas - Fully Assessed Reason for Visit: Orders [681] Cmt: MRI Prescriptions as of 11/13/2020 - iv contrast (will be provided with radiology test) MRI Brain Inject, intravenously, once for 1 dose.No IV access, insert saline lock prior to beginning of sedation, infusion, injection of imaging exam.Discontinue saline lock post exam. If Pt. has a central line or IVAD, may access for administration according to line specific nursing protocol.Once exam is complete flush line and de-access according to line specific nursing protocol in the MR contrast administration guidelines link - Ibuprofen 100 mg tablet Take 100 mg by mouth every 6 hours as needed. - Loperamide HCl (IMODIUM) 2 mg tab Take 2 mg by mouth. 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 Nucleic acid amplification tests include PCR and TMA. This test has not been FDA cleared or approved. This test has been authorized by FDA under an Emergency Use Authorization (EUA). This test is only authorized for the duration of time the declaration that circumstances exist justifying the authorization of the emergency use of in vitro diagnostic tests for detection of SARS-CoV-2 virus and/or diagnosis of COVID-19 infection under section 564(b)(1) of the Act, 21 U.S.C. 360bbb-3(b) (1), unless the authorization is terminated or revoked sooner. When diagnostic testing is negative, the possibility of a false negative result should be considered in the context of a patient's recent exposures and the presence of clinical signs and symptoms consistent with COVID-19. An individual without symptoms of COVID-19 and who is not shedding SARS-CoV-2 virus would expect to have a negative (not detected) result in this assay. Performed By: #### C VDPCR #### [facility] [address] [place] [address] Salma Resendez COVID-19 PCRon 11-25-2019 SARS-CoV-2, XOCHILT Not Detected Normal Not Detected [facility] Comment on above: Result Comment: This test was developed and its performance characteristics determined by [employer]. This test has not been FDA cleared or approved. This test has been authorized by FDA under an Emergency Use Authorization (EUA). This test is only authorized for the duration of time the declaration that circumstances exist justifying the authorization of the emergency use of in vitro diagnostic tests for detection of SARS-CoV-2 virus and/or diagnosis of COVID-19 infection under section 564(b)(1) of the Act, 21 U.S.C. 360bbb-3(b)(1), unless the authorization is terminated or revoked sooner. When diagnostic testing is negative, the possibility of a false negative result should be considered in the context of a patient's recent exposures and the presence of clinical signs and symptoms consistent with COVID-19. An individual without symptoms of COVID-19 and who is not shedding SARS-CoV-2 virus would expect to have a negative (not detected) result in this assay. Performed By: #### C VDPCR #### [facility] [address] [place] [address] Salma Resendez Vital Signs Date Time Vital Sign Value Performing Clinician Gerald kaba 10-28-2022 08:30-0400 Body height 157.48 cm Oscar Shine Other [facility] Other 10-28-2022 08:30-0400 Body mass index (BMI) [Ratio] 23.96 kg/m2 Jacobopolloflako Riojas Other [facility] Other 10-28-2022 08:30-0400 Body temperature 96.9 [degF] Oscar Riojas Other [facility] Other 10-28-2022 08:30-0400 Body weight 59.42 kg Oscar Riojas Other [facility] Other 10-28-2022 08:30-0400 Diastolic blood pressure 72 mm[Hg] [employer] Shine Other [facility] Other 10-28-2022 08:30-0400 Respiratory rate 220 /min Oscar Riojas Other [facility] Other 10-28-2022 08:30-0400 SaO2% (BldA) [Mass fraction] 99 % Oscar Riojas Other [facility] Other 10-28-2022 08:30-0400 Systolic blood pressure 130 mm[Hg] Oscar Riojas Other [facility] Other Encounters Encounter Date Encounter Type Care Provider Facility Start: 04-14-2023 End: 04-14-2023 ambulatory [facility] Start: 03-05-2023 ambulatory [facility] Start: 10-28-2022 End: 10-28-2022 ambulatory Oscar Riojas Other [facility] Other Start: 10-28-2022 Office outpatient visit 15 minutes Oscar Riojas [facility] Start: 10-23-2022 End: 10-23-2022 ambulatory Oscar Riojas Facility:[facility] Start: 10-23-2022 End: 10-23-2022 ambulatory MD Kait Archer Work Phone: [facility] Work Phone: Start: 10-23-2022 End: 10-23-2022 Patient encounter procedure MD Kait Archer Work Phone: [facility] Work Phone: Start: 08-30-2022 End: 08-30-2022 ambulatory Kait Archer Facility:[facility] Start: 08-30-2022 End: 08-30-2022 ambulatory MD Kait Archer Work Phone: [facility] Work Phone: Start: 08-30-2022 End: 08-30-2022 Patient encounter procedure MD Kait Archer Work Phone: [facility] Work Phone: Start: 2022 End: 2022 ambulatory Kait Archer Facility:[facility] Start: 2022 End: 2022 ambulatory MD Kait Archer Work Phone: [facility] Work Phone: Start: 2022 End: 2022 Patient encounter procedure MD Kait Archer Work Phone: [facility]-Lab [facility] Start: 11-26-2021 End: 11-26-2021 ambulatory Kait Archer Facility:[facility] Start: 03-22-2020 End: 03-23-2020 Patient encounter procedure IGOR BARKLEY Facility:[facility] Start: 11-23-2019 End: 11-24-2019 Patient encounter procedure KAIT ARCHER Facility:[facility] Procedures Date Procedure Procedure Detail Performing Clinician Start: 08-30-2022 Screening mammograph y of bilateral breasts MD Kait Archer Work Phone: Plan of Treatment Date Care Activity Detail Author Start: 08-30-2022 Screening mammograph y of bilateral breasts MM screening mammo BI w/CAD [facility] Start: 2022 Hemolytic complement CH50 level [facility] Complement C3 [Mass/volume] in Serum or Plasma [facility] Complement C4 [Mass/volume] in Serum or Plasma [facility] Payers Date Payer Category Payer Self-pay [id number] 1961 Unknown [id number] 1960 Unknown [id number] [id number] [id number] 1960 Unknown [id number] 2.16.84 [id number] Unknown [id number] 2.16.8 [id number] Unknown [id number] 2.16.8 [id number] Unknown [id number] 2.16.8 [id number] Unknown [id number] 2.16.8 [id number] Social History Date Type Detail Facility Tobacco smoking status TNIS Unknown if ever smoked [facility] Work Phone: Start: 1960 Sex Assigned At Female F [facility] Sex Assigned At Sex Assigned At Bir th [facility] Other Progress note 04-14-2023 Note Date & Type Note Facility 04-14-2023 Note [facility] Subjective Valerie Yee is a 62 y.o. year old female patient being seen for follow up stress test done yesterday. Chest pain has improved. Denies SOB. Gets palpitations sometimes. She was started on atorvastatin at last apt and was unable to tolerate it due to headache. When she stopped it, headache resolved. Patient Active Problem List Diagnosis Abnormal CT of the chest Abnormal TSH Age-related nuclear cataract of both eyes Allergic rhinitis Anxiety Brain cyst Calculus of kidney Congenital abnormality of kidney Constrictive pericarditis Disorder of bone and articular cartilage Disturbance of skin sensation Gastroesophageal reflux disease Edema SOB (shortness of breath) Diverticulosis of large intestine without hemorrhage Grief Hand joint pain Heart palpitations Hypothyroidism (acquired) Intestinal disaccharidase deficiency Irritable bowel syndrome with diarrhea Iron deficiency anemia Lactose intolerance Malaise and fatigue Mild mitral regurgitation Muscle ache Muscle contraction headache Neoplasm of uncertain behavior of brain, supratentorial (CMS/HCC) Optic atrophy Pansinusitis Pleural effusion Postmenopausal atrophic vaginitis Pressure ulcer of toe of right foot, stage 1 Restrictive lung disease S/P pericardial operation Tricuspid valve insufficiency Vitamin D deficiency Family History Problem Relation Name Age of Onset Heart attack Mother Social History Tobacco Use Smoking status: Never Smokeless tobacco: Never Substance Use Topics Alcohol use: Not Currently Comment: rare HPI Valerie is seen in follow-up. I had met her in the past, when I performed her cardiac catheterization in 2012. 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 She has history of hypothyroidism and follows with rheumatology for unclear rheumatological disease. There has been a question of possible pulmonary hypertension on recent evaluation but repeat echocardiogram was within normal limits. She was evaluated by easter bunny at [facility] in 2018 for that and due to follow up echo being within normal limits, no further workup was recommended. She was evaluated in our office on 03/05/2023 due to symptoms of chest tightness. A stress test was ordered which was a treadmill nuclear stress test that showed evidence of worsening of baseline nonspecific ST segment depressions with exercise and occasional PVCs. However the nuclear perfusion was normal showing no reversible ischemia and her ejection fraction was calculated at 91%. She was started on atorvastatin however she did not tolerated due to side effects. She currently takes aspirin and thyroid replacement. She says that she has been having palpitations recently. No shortness of breath. No recurrence of chest discomfort. No leg edema. Review of Systems Cardiovascular: Positive for palpitations. Musculoskeletal: Positive for myalgias. All other systems reviewed and are negative. Objective Visit Vitals BP 126/78 (BP Location: Left arm, Patient Position: Sitting) Pulse 91 Ht 1.575 m (5' 2 ) Wt 61.7 kg (136 lb) SpO2 97% BMI 24.87 kg/m??? Smoking Status Never BSA 1.64 m??? Physical Exam Constitutional: Appearance: She is well-developed. She is not ill-appearing. HENT: Head: Normocephalic and atraumatic. Nose: Nose normal. Eyes: General: No scleral icterus. Pupils: Pupils are equal, round, and reactive to light. Neck: Thyroid: No thyromegaly. Vascular: No JVD. Cardiovascular: Rate and Rhythm: Normal rate and regular rhythm. Pulses: Radial pulses are 2+ on the right side and 2+ on the left side. Heart sounds: Normal heart sounds. No murmur heard. No friction rub. No gallop. Pulmonary: Effort: Pulmonary effort is normal. No respiratory distress. Breath sounds: Normal breath sounds. No wheezing or rales. Chest: Chest wall: No tenderness. Abdominal: General: Bowel sounds are normal. There is no distension. Palpations: Abdomen is soft. Tenderness: There is no abdominal tenderness. Musculoskeletal: General: No swelling. Cervical back: Neck supple. Skin: General: Skin is warm and dry. Neurological: General: No focal deficit present. Mental Status: She is alert and oriented to person, place, and time. Psychiatric: Mood and Affect: Mood normal. Behavior: Behavior is cooperative. Judgment: Judgment normal. Allergies Allergies Allergen Reactions Atorvastatin Headache Codeine Dizziness, GI intolerance, Nausea Only and Nausea And Vomiting Medications Current Outpatient Medications: aspirin 81 mg EC tablet, Take 81 mg by mouth in the morning., Disp: , Rfl: cholecalciferol, vitamin D3, (Vitamin D3) 10 mcg (400 unit) capsule, , Disp: , Rfl: latanoprost (more content not included)... [facility] Progress note 03-05-2023 Note Date & Type Note Facility 03-05-2023 Note Cardiovascular Medic [facility] SUBJECTIVE No chief complaint on file. DK Yee is a 62 y.o. 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 She was seen by Dr. Salcedo at the [facility] for a second opinion on pulmonary hypertension on echo where documentation indicates findings of moderate atherosclerosis seen on CT scan. In regards to pulmonary hypertension, her repeat echocardiogram was normal, with recommendations against further testing in absence of symptoms. She is seen today for evaluation of chest tightness which has been ongoing for the last several months worsening over the last couple of weeks. Tightness occurs when she is emotionally distressed and lasts about 30-60 minutes at a time. It is at times associated with lightheadedness. 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 Mother of heart attack at age 75, no other family history of CVD or known SCD. Allergies Allergen Reactions Codeine Dizziness, GI intolerance, Nausea Only and Nausea And Vomiting Patient Active Problem List Diagnosis Abnormal CT of the chest Abnormal TSH Age-related nuclear cataract of both eyes Allergic rhinitis Anxiety Brain cyst Calculus of kidney Congenital abnormality of kidney Constrictive pericarditis Disorder of bone and articular cartilage Disturbance of skin sensation Gastroesophageal reflux disease Edema SOB (shortness of breath) Diverticulosis of large intestine without hemorrhage Grief Hand joint pain Heart palpitations Hypothyroidism (acquired) Intestinal disaccharidase deficiency Irritable bowel syndrome with diarrhea Iron deficiency anemia Lactose intolerance Malaise and fatigue Mild mitral regurgitation Muscle ache Muscle contraction headache Neoplasm of uncertain behavior of brain, supratentorial (CMS/HCC) Optic atrophy Pansinusitis Pleural effusion Postmenopausal atrophic vaginitis Pressure ulcer of toe of right foot, stage 1 Restrictive lung disease S/P pericardial operation Tricuspid valve insufficiency Vitamin D deficiency Past Medical History: Diagnosis Date Coronary artery disease Past Surgical History: Procedure Laterality Date ABLATION OF DYSRHYTHMIC FOCUS CARDIAC CATHETERIZATION SECTION, CLASSIC CHOLECYSTECTOMY HYSTERECTOMY Family History Problem Relation Name Age of Onset Heart attack Mother Social History Tobacco Use Smoking status: Never Smokeless tobacco: Never Substance Use Topics Alcohol use: Not Currently Comment: rare ROS OBJECTIVE Visit Vitals BP 120/75 (BP Location: Left arm, Patient Position: Sitting) Pulse 78 Ht 1.575 m (5' 2 ) Wt 60.3 kg (133 lb) SpO2 98% BMI 24.33 kg/m??? Smoking Status Never BSA 1.62 m??? Medications: Current Outpatient Medications: aspirin 81 mg EC tablet, Take 81 mg by mouth in the morning., Disp: , Rfl: cholecalciferol, vitamin D3, (Vitamin D3) 10 mcg (400 unit) capsule, , Disp: , Rfl: latanoprost (Xalatan) 0.005 % ophthalmic solution, , Disp: , Rfl: levothyroxine (Synthroid, Levoxyl) 88 mcg tablet, Take 88 mcg by mouth in the morning., Disp: , Rfl: atorvastatin (Lipitor) 40 mg tablet, Take 1 tablet (40 mg) by mouth in the morning., Disp: 30 tablet, Rfl: 11 Physical Exam Constitutional: Appearance: Normal appearance. She is normal weight. Cardiovascular: Rate and Rhythm: Normal rate and regular rhythm. Pulses: Normal pulses. Heart sounds: No murmur heard. No friction rub. Pulmonary: Effort: Pulmonary effort is normal. No respiratory distress. Breath sounds: No wheezing or rales. Skin: General: Skin is warm and dry. Neurological: General: No focal deficit present. Mental Status: She is alert and oriented to person, place, and time. Labs: 11/13/2022 Hemoglobin 13.9, hematocrit 41.2 Sodium 141, potassium 4.3, chloride 106, BUN 13, serum creatinine 0.67, estimated GFR 98% Testing/Procedures: Echo 05/21/2021 4:55 PM EST Left Ventricle: Systolic function is normal with an ejection fraction of 65-70%. No segmental wall motion abnormalities. No significant valvular abnormalities noted Left Ventricle Left ventricle appears normal in size. Wall thickness is normal. Systolic function is normal with an ejection fraction of 65-70%. No segmental wall motion abnormalities. Normal diastolic function is present. Right Ventricle Right ventricular size appears normal. Systolic function is normal. Left Atrium Left atrium is normal in size. The left atrial volume index is 18.5 mL/m2. Right Atrium Right atrium is normal in size. The right atrial area is 10.6 cm2. IVC/SVC IVC appears normal. Mitral (more content not included)... [facility] Progress note 03-05-2023 Note Date & Type Note Facility 03-05-2023 Note New patient here to re-establish care. She has history of radical pericardectomy 10+ years ago at [facility]. She has been having intermittent chest pain, lightheadedness, and palpitations. Denies SOB and LE edema. On Thursday the chest pain radiated to her back and LUE. Review of Systems Cardiovascular: Positive for chest pain and palpitations. Musculoskeletal: Positive for myalgias. All other systems reviewed and are negative. [facility] Evaluation note 10-28-2022 Note Date & Type Note Facility 10-28-2022 Evaluation note Encounter Date Diagnosis Assessment Notes Oct, Restrictive lung disease (ICD-10 - J98.4) Oct, Reactive airway disease (ICD-10 - J45.909) [facility] Other Clinical Note 10-09-2021 Note Date & Type Note Facility 10-09-2021 Note HISTORY: Intracrania l brain cystic mass follow up PROCEDURE: [employer] HDXT 1.5. Sagittal coronal and axial T1 and T2 images through the brain were performed with and without contrast. 12 cc of ProHance was administered. Comparison is made with the outside examination of November 17, 2020. FINDINGS: Stable intracranial findings when compared to the outside brain MRI report 11 months earlier. No abnormal enhancement or edema within or surrounding the multiseptated cystic mass within the right frontal cortex (3.0 x 3.4 x 3.0 cm). Stable nonenhancing hyperintensities within the centrum semiovale, subcortical white matter, patricia and capsular locations. No intracranial hemorrhage or mass effect. No new lesions. Unremarkable mastoid air cells, tympanic cavities, paranasal sinuses (rightward nasal septal deviation), corpus callosum, medulla, spinal cord and orbital contents. IMPRESSION: Stable right frontal multiseptated cystic mass. No surrounding edema, hemorrhage, acute or subacute major vessel ischemia. Report reported and signed by Camilo Blount on 10/09/2021 [id number] [facility] [employer] [employer] Clinical Note 05-17-2021 Note Date & Type Note Facility 05-17-2021 Note HISTORY: SOB, COVID PROCEDURE: [employer] VCT 64. Following IV contrast, axial helical 3 mm slice thickness images of the chest were performed with coronal MPR reconstruction. 100 cc of Isovue 300 was administered. Comparison is made with the prior examination of May 15, 2021. FINDINGS: No pulmonary arterial thrombus. Mild bibasilar interstitial prominence (right greater than left) with peripheral distribution, characteristic of post inflammatory sequela (COVID). 8 x 15 mm oval shape density contiguous with the superior lateral aspect of the left major fissue, likely small pseudotumor (unlikely lung nodule). No significant mediastinal or hilar lymphadenopathy (low volume lymph nodes, largest 1.0 x 1.0 cm within the precarinal space). No pleural or pericardial effusion. Sternotomy wires. No significant axillary lymphadenopathy. No neighboring inflammation. IMPRESSION: 1. No pulmonary arterial thrombus. 2. Bibasilar parenchymal findings consistent with post inflammatory sequela (distribution typical for COVID). 3. Left lower chest presumed pseudotumor (loculated pleural fissural fluid). Recommend follow up chest CT in six months. Report reported and signed by Camilo Blount on 05/17/2021 [id number] [facility] Progress note 12-17-2020 Note Date & Type Note Facility 12-17-2020 Note HNO ID: [id number] Author: Sivakumar Anguiano MD Service: ? Author Type: Physician Type: Progress Notes Filed: 12/17/2020 5:50 PM Note Text: [facility] Virtual Follow-Up Visit We had a virtual visit conducted via Zoom. I received consent from the patient to perform the visit using this platform. Diagnosis: Neoplasm brain, uncertain behavior. Brain cyst Subjective History of Present Illness: This patient is a 60 year old right-handed female with a history of right frontal non-enhancing cystic lesion. She initially developed a decline of her left-sided vision in 2018. The tumbling instructor made a diagnosis of optic atrophy and ordered MRI and the scan taken on 03/16/19 showed a right-frontal non-enhancing cystic mass, measuring 4.3 x 2.[address] Anguiano's clinic on 03/25/19. Surgery was recommended while her mass lesion would not be the cause of her symptoms. She had some dental infection that needed to be cleared before the surgery. At most recent contact with her on 10/06/19, she indicated that she still has some infection. The plan was to obtain a new MRI and also to see her dentist. Since last visit she has had complaints of no new symptoms. Her dental infection has been treated. She denies any headaches, nausea, vomiting, weakness, numbness, or seizures. She is currently not on steroid, AED, or any blood thinner. At 11/11/2019, Dr. Anguiano reviewed her imaging- the right frontal cystic lesion was 2-3 mm smaller on a MRI scan that was done a day previous to that visit compared to the scan done on March 2019. Therefore, it was decided to continue following up with MRI repeated 6 months. The patient mentions she had an open heart surgery for pericarditis on 2012. She has pulmonary HTN and being followed up by easter bunny, mail carrier and facility sales and admin. She does not take any medications. December 17, 2020 update: The patient mentions frontal headaches from time to time, not intense headaches. Her vision in the right eye is not getting better and perhaps even getting slightly worst. She did not visit her tumbling instructor since 2018. The patient underwent MRI at 11/17/2020 that demonstrated an enlargement of the cystic lesion. She does not report any additional complaints other then her vision, no seizures. Last Chemo: Current Steroids dose: Current AED Dose: Therapy Status Data Form Past Medical History: PAST MEDICAL HISTORY Diagnosis Date - Allergic rhinitis - Constrictive pericarditis s/p [id number] of [place] - GERD (gastroesophageal reflux disease) - Irritable bowel syndrome (IBS) - Kidney stones - Malrotation of kidney - Osteopenia - Palpitations Past Surgical History: PAST SURGICAL HISTORY Procedure Laterality Date - SECTION HX x3 - CHOLECYSTECTOMY - PAST SURGICAL HISTORY OF Total Hysterecotmy - PERICARDIECTOMY 08/06/12 [facility] Family History: FAMILY HISTORY Problem Relation Age of Onset - Lipids Father - other (CIDP) Father - Kidney Disease Mother - Glaucoma Maternal Grandmother Social History Tobacco Use - Smoking status: Never Smoker - Smokeless tobacco: Never Used Substance Use Topics - Alcohol use: Yes Comment: socially - Drug use: No Allergies: Codeine Current Outpatient Medications Medication Sig - Ibuprofen 100 mg tablet Take 100 mg by mouth every 6 hours as needed. - Loperamide HCl (IMODIUM) 2 mg tab Take 2 mg by mouth. No current facility-administered medications for this visit. Review of systems: Constitutional: No recent fever or weight loss. Eyes: No history of glaucoma or cataracts. ENMT: No recent ear infection, nasal congestion, mouth sores or sore throat. CV: No history of chest pain, palpitations or leg swelling. Respiratory: No history of SOB, asthma or recent cough. Gastrointestinal: No history of nausea, vomiting, dysphagia or abdominal pain. Genitourinary: No history of hematuria or dysuria. Musculoskeletal: No complaint of arthritis, unstable gait or arm/leg weakness. Psychiatric: No history of hallucinations or depression or anxiety. ROS Neurological: No complaint of headache. No complaint of tinnitus. No complaint of decreased hearing. No complaint of diplopia. No complaints of decreased visual acuity. No complaint of arm/leg numbness. No problem with limb coordination. No complaint of syncope, seizures or disorientation. Objective Physical Exam: There were no vitals taken for this visit. General appearance: well appearing, in no acute distress, alert Head: NC/AT Eyes: clear, anicteric Oropharynx: clear, no lesions Neck: supple, no LAD Lungs: CTA bilaterally, no W/C Heart: RR without murmur noted Abdomen: soft, NT/ND Extremities: warm, no cyanosis or edema Skin: color, texture, and turgor unremarkable. No rashes or lesions. PE Neuro: Higher int (more content not included)... [facility] Evaluation note Note Date & Type Note Facility Evaluation note No assessment information [facility] Work Phone: History general Narrative - Reported Note Date & Type Note Facility History general Narrative - Reported Type Medical History degenerative joint disease Medical History Collagen disease Medical History anemia Medical History [facility] Medical History rheumatic fever as a child Medical History Polyarthropathy Medical History Thrombocytopenia Medical History Paraethesias of the tongue, lips , hands Medical History Atrial fibrillation Medical History restrictive lung disease Medical History mass in the frontal lobe Medical History Covid 04/23-05/2021 Surgical History CHOLECYSTECTOMY Surgical History X3 Surgical History OPEN HEART Surgical History HYSTERECTOMY Hospitalization History See above [facility] Other Summary Purpose Family History No Family History Records FoundNo Family History Records FoundNo Family History Records FoundNo Family History Records FoundNo Family History Records FoundNo Family History Records Found Advance Directives No Advanced Directives Records Found Advance Directive Response Recorded Date/ Time Advance Directives No March 06, 2017 11:59am Chief Complaint and Reason for Visit Chief Complaint M15.0;M35.9;Z79.899 Chief Complaint M15.0;M35.9;Z79.899 Screening Chief Complaint Screening office to fax Additional Source Comments INFORMATION SOURCE (unrecogn ized section and content) DATE CREATED AUTHOR 03/28/[address] [facility] DATE CREATED AUTHOR AUTHOR'S ORGANIZ ATION 11/18/2020 [facility] DATE CREATED AUTHOR AUTHOR'S ORGANIZ ATION 05/31/2021 [facility] DATE CREATED AUTHOR AUTHOR'S ORGANIZ ATION 10/10/2021 [facility] dical Specialist DATE CREATED AUTHOR AUTHOR'S ORGANIZ ATION 11/08/2022 [facility] DATE CREATED AUTHOR AUTHOR'S ORGANIZ ATION 04/16/2023 [facility] Care Teams (unrecognized sec tion and content) Team Status: Active Member Role Status Casey Archer MD Primary Care Provider Active Team Status: Inactive Member Role Status Dates Kait Archer MD Primary Care Provider Active Dave Cantu MD Attending Provider Active Team Status: Inactive Member Role Status Dates Kait Archer MD Primary Care Provider Active Ghulam Thrasher DO Attending Provider Active Team Status: Inactive Member Role Status Dates Kait Archer MD Primary Care Provider Active Oscar Riojas MD Attending Provider Active Goals (unrecognized section and content) Goals may be documented in a n alternate sectionGoals may be documented in an alternate sectionGoals may be documented in an alternate sectionNo Information REASON FOR VISIT (unrecogniz ed section and content) 1 yr f/u RLD, RAD FOR RECORDS PERTAINING TO PATIENTS WHO ARE OR HAVE BEEN ENROLLED IN A CHEMICAL DEPENDENCY/SUBSTANCEABUSE PROGRAM, SOME INFORMATION MAY BE OMITTED. This clinical summary was aggregated from multiple sources. Caution should be exercised in using it in the provision of clinical care. This summary normalizes information from multiple sources, and as a consequence, information in this document may materially change the coding, format and clinical context of patient data. In addition, data may be omitted in some cases. CLINICAL DECISIONS SHOULD BE BASED ON THE PRIMARY CLINICAL RECORDS. [employer] provides no warranty or guarantee of the accuracy or completeness of information in this document.
== END 2023-04-13 08:38 | disposition home or self-care (01) ==
LOC: NM 08:37
PROVIDERS: PCP Family Medicine; Visit Provider Nurse Practitioner Acute Care
DX: R07.9 Chest pain, unspecified (principal); I25.10 Atherosclerotic heart disease of native coronary artery without angina pectoris
CPT/HCPCS: 78452; 93017; A9500

== ENCOUNTER 2024-10-10 09:32 | Outpatient (OUT) | payer MEDICARE, OTHER, SELFPAY ==
--- OUTSIDE RECORDS SUMMARY | 2024-09-29 09:00 | XMS_ITS | Encounter Summary ---
Author Organization [facility] [employer] Address [id number] [place] [address] Care Team Providers Care Dental Assistant Instructor Name Role Phone Kait Real MD Primary Care Provider [phone] Reason for Visit * Reason Comments Follow-up Update H&P, colonosc opy scheduled 10/13/24 Encounter Details Date Type Department Care Team (Late st Contact Info) Description 09/29/2024 9:00 AM EDT Office Visit [facility] [address] [place] [id number] Rosie Dixon, ADULT PSYCHIATRIST-MECHANICAL ENGINEERING TECHNICIAN [address] [place] [address] Encounter for screening colonoscopy (Primary Dx); Chronic diarrhea; Family history of colon cancer in father; Nausea Social History Tobacco Use Types Packs/Day Years Used Date Smoking Tobacco: Never Smokeless Tobacco: Never Alcohol Use Standard Drinks/Week Comments No 0 (1 standard drink = 0.6 oz pur e alcohol) Childcare Answer Date Recorded Childcare Unknown 10/13/2018 Employment Answer Date Recorded Employment Unknown 10/13/2018 Hunger Screening Answer Date Recorded Within the past 12 months we worried whether our food would run out before we got money to buy more. Never True 09/29/2024 Within the past 12 months th e food we bought just didn't last and we didn't have money to get more. Never True 09/29/2024 Purpose - Life Answer Date Recorded Purpose and direction in life Unknown Comments No Sex and Gender Information Value Date Recorded Sex Assigned at Not on file Legal Sex Female 11:52 AM EDT Gender Identity Not on file Sexual Orientation Not on file documented as of this encounter Last Filed Vital Signs Vital Sign Reading Time Taken Comments Blood Pressure 143/60 09/29/2024 8:54 AM EDT Pulse 68 09/29/2024 8:54 AM EDT Temperature - - Respiratory Rate - - Oxygen Saturation - - Inhaled Oxygen Concentration - - Weight 61.6 kg (135 lb 12.8 oz) 09/29/2024 8:54 AM EDT Height 157.5 cm (5' 2 ) 09/29/2024 8:54 AM EDT Body Mass Index 24.84 09/29/2024 8:54 AM EDT documented in this encounter Progress Notes * Rosie Dixon, RENE-MECHANICAL ENGINEERING TECHNICIAN - 09/29/2024 9:00 AM EDT Images from the original note were not included. Chief Complaint: Colonoscopy History of Present Illness Valerie Yee is a 64 y.o. female who presents to the office for colonoscopy. Her last colonoscopy was 10+ years ago. She reports intermittent chronic diarrhea for 15+ years. She has seen GI in the past. She is a vegetarian. She denies rectal bleeding, unintentional weight loss. Her father gould d colon cancer and was diagnosed when he was 79 years old. Three weeks ago she had significant abdominal cramping for which she had to leave work. She went home and had a bowel movement and went to bed. She felt better when she woke up by her abdomen was still sore. She also asking about looking into her stomach. She reports an increased amount of nausea. Symptomsstarted 1 month ago. She drinks coffee in the morning and either water or tea for the rest of the day. Takes ibuprofen as needed. She denies heartburn, acid reflux. No vomiting. Review of Systems Constitutional: Negative for fever and unexpected weight change. HENT: Negative for trouble swallowing. Respiratory: Negative for shortness of breath. Cardiovascular: Negative for chest pain. Gastrointestinal: Positive for nausea and diarrhea. Negative for vomiting, abdominal pain, constipation and blood in stool. Genitourinary: Negative for dysuria and difficulty urinating. Musculoskeletal: Negative for gait problem. Skin: Negative for rash and wound. Neurological: Negative for dizziness, weakness and light-headedness. Hematological: Does not bruise/bleed easily. Psychiatric/Behavioral: Negative for confusion. 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 Pericardial effusion Pleural effusion Pneumonia Have had 3 times PONV (postoperative nausea and vomiting) Prolonged emergence from general anesthesia Pulmonary hypertension ([facility]) Rheumatic fever Vision problems Vitamin D deficiency Past Surgical History: Procedure Laterality Date BRONCHOSCOPY CANALOPLASTY EYE Left 08/04/2024 Performed by Jana Rocha MD at [facility] CARDIAC CATHETERIZATION 2013 SECTION 1989, 1992, 1993 CHOLECYSTECTOMY COLONOSCOPY COLPOSCOPY CYSTOSCOPY EXTRACTION CATARACT INTRAOCULAR LENS Left 08/04/2024 Performed by Jana Rocha MD at [facility] HYSTERECTOMY PERICARDIECTOMY SKIN BIOPSY THORACENTESIS chest tubes TOTAL ABDOMINAL HYSTERECTOMY W/ BILATERAL SALPINGOOPHORECTOMY Allergies Allergen Reactions Atorvastatin Headache Codeine Vomiting Hydrocodone-Acetaminophen Other Reaction(s): dizziness, vomiting Oxycodone-Acetaminophen Other Reaction(s): dizziness, vomiting Latex Rash Current Outpatient Medications: acetaminophen (TYLENOL EXTRA STRENGTH) 500 mg tablet, Take 1 tablet (500 mg total) by mouth every 6(six) hours as needed for pain or headaches., Disp: , Rfl: albuterol (PROVENTIL,VENTOLIN) 2.5 mg /3 mL (0.083 %) nebulizer solution, Inhale 3 mL (2.5 mg total) by nebulization every 4 (four) hours as needed., Disp: , Rfl: aspirin 81 mg, Take 1 tablet (81 mg total) by mouth 3 (three) times a week., Disp: , Rfl: cholecalciferol, vitamin D3, 25 mcg (1,000 unit) capsule, Take 2 capsules (2,000 Units total) by mouth in the morning., Disp: , Rfl: glucosamine sulfate (GLUCOSAMINE ORAL), Take 1,000 mg by mouth in the morning and at bedtime., Disp: , Rfl: ibuprofen (ADVIL,MOTRIN) 200 mg tablet, Take 1 tablet (200 mg total) by mouth every 6 (six) hours as needed for pain, fever or headaches., Disp: , Rfl: latanoprost (XALATAN) 0.005 % ophthalmic solution, Administer 1 drop to both eyes nightly., Disp: ,Rfl: levothyroxine (SYNTHROID, LEVOTHROID) 88 MCG tablet, Take 1 tablet (88 mcg total) by mouth in the morning., Disp: , Rfl: loperamide (IMODIUM A-D) 2 mg tablet, Take 1 tablet (2 mg total) by mouth as needed in the morning and 1 tablet (2 mg total) as needed at noon and 1 tablet (2 mg total) as needed in the evening and 1tablet (2 mg total) as needed before bedtime for diarrhea., Disp: , Rfl: multivitamin (THERAGRAN) tablet, Take 1 tablet by mouth in the morning., Disp: , Rfl: PROAIR HFA 90 mcg/actuation inhaler, Inhale 2 puffs every 4 (four) hours as needed., Disp: , Rfl: 0 sod sulf-pot chloride-mag sulf 1.479-0.188- 0.225 gram tablet, Please see instructional sheet givenby physicians office., Disp: 24 tablet, Rfl: 0 omeprazole (PriLOSEC) 20 mg capsule, Take 1 capsule (20 mg total) by mouth in the morning., Disp: 30 capsule, Rfl: 1 Social History Socioeconomic History Marital status: Spouse name: Not on file Number of children: Not on file Years of education: Not on file Highest education level: Not on file Occupational History Not on file Tobacco Use Smoking status: Never Smokeless tobacco: Never Vaping Use Vaping status: Never Used Substance and Sexual Activity Alcohol use: No Drug use: No Sexual activity: Not Currently Partners: Male Other Topics Concern Not on file Social History Narrative Not on file Social Drivers of Health Financial Resource Strain: Low Risk (04/14/2024) Received from [facility] Healthcare Overall Financial Resource Strain (CARDIA) Difficulty of Paying Living Expenses: Not hard at all Food Insecurity: No Food Insecurity (09/29/2024) Hunger Screening Food Insecurity - Worry: Never True Food Insecurity - Inability: Never True Transportation Needs: No Transportation Needs (04/14/2024) Received from [facility] PRAPARE - Transportation Lack of Transportation (Medical): No Lack of Transportation (Non-Medical): No Physical Activity: Insufficiently Active (04/14/2024) Received from [facility] Exercise Vital Sign Days of Exercise per Week: 1 day Minutes of Exercise per Session: 10 min Stress: Stress Concern Present (04/14/2024) Received from [facility] [employer] [place] [employer] - Occupational Stress Questionnaire Feeling of Stress : To some extent Social Connections: Moderately Isolated (04/14/2024) Received from [facility] Social Connection and Isolation Panel [NHANES] Frequency of Communication with Friends and Family: More than three times a week Frequency of Social Gatherings with Friends and Family: More than three times a week Attends [employer] Services: More than 4 times per year Active Member of Clubs or Organizations: No Attends Club or Organization Meetings: Never Marital Status: Interpersonal Safety: Unknown (06/25/2023) Received from [facility] Safety & Environment Fear of Current or Ex-Partner: Not on file Emotionally Abused: Not on file Physically Abused: Not on file Sexually Abused: Not on file Physically or Sexually Abused: Not on file Housing Instability: Low Risk (04/14/2024) Received from [facility] Housing Stability Vital Sign Unable to Pay for Housing in the Last Year: No Number of Times Moved in the Last Year: 0 Homeless in the Last Year: No Family History Problem Relation Age of Onset Heart disease Mother Kidney disease Mother Alcohol abuse Mother Arthritis Mother Stroke Mother Autoimmune disease Father Colon cancer Father Diabetes Father No Known Problems Sister [place] Daughter Asthma Son Colon cancer Paternal Uncle Objective Physical Exam Constitutional: General: She is not in acute distress. Appearance: Normal appearance. She is not ill-appearing. HENT: Head: Normocephalic and atraumatic. Mouth/Throat: Mouth: Mucous membranes are moist. Eyes: Pupils: Pupils are equal, round, and reactive to light. Cardiovascular: Rate and Rhythm: Normal rate. Pulmonary: Effort: Pulmonary effort is normal. No respiratory distress. Abdominal: General: There is no distension. Palpations: Abdomen is soft. Tenderness: There is no abdominal tenderness. There is no guarding. Musculoskeletal: General: Normal range of motion. Skin: General: Skin is warm and dry. Neurological: Mental Status: She is alert and oriented to person, place, and time. Mental status is at baseline. Vital Signs: Blood pressure 143/60, pulse 68, height 157.5 cm (5' 2 ), weight 61.6 kg (135 lb 12.8 oz). Respiratory Source: No data recorded Admission Weight: Weight: 61.6 kg (135 lb 12.8 oz) Labs Lab Results Component Value Date WBC 5.9 05/14/2016 HGB 14.6 05/14/2016 HCT 44.4 05/14/2016 MCV 89 05/14/2016 PLT 153 05/14/2016 Lab Results Component Value Date GLU 97 05/14/2016 CALCIUM 9.5 05/14/2016 K 4.1 05/14/2016 CO2 26 05/14/2016 CL 105 05/14/2016 BUN 13 05/14/2016 CREATININE 0.76 05/14/2016 No results found for: AMYLASE No results found for: LIPASE Lab Results Component Value Date ALT 38 (H) 05/14/2016 AST 30 05/14/2016 ALKPHOS 102 05/14/2016 No results found for: INR , PROTIME Assessment Screening colonoscopy Family history of colon cancer in father Chronic diarrhea Nausea Plan Start PPI for nausea. Schedule EGD and colonoscopy. Notify office if abdominal pain returns. Evaluation included: Preparing to see the patient (e.g., review of tests) Obtaining and/or reviewing separately obtained history Performing a medically appropriate examination and/or evaluation Counseling and educating the patient/family/caregiver Referring and communicating with other health residential care facility manager Encounter for screening colonoscopy [Z12.11] EDVIN CADET [facility] [place] This note was created with the assistance of a speech recognition program. While intending to generate a timely document that accurately reflects the content of the visit, no guarantee can be provided that every grammatical or spelling mistake has been or will be identified or corrected. Thank you for your understanding. EDVIN Cadet 09/29/24 0912 documented in this encounter Plan of Treatment Upcoming Encounters Date Type Department Care Team (Latest Contact Info) Description 10/13/2024 7:30 AM EDT Hospital Encounter [facility] [address] [place] [phone] Alvarez Braga, DO [address] [place] [address] 10/13/2024 7:30 AM EDT Anesthesia Event [facility] [address] [place] [phone] Faraz Hadley, DO [address] [place] [address] 10/13/2024 7:30 AM EDT - 10/13/2024 8:15 AM EDT Surgery [facility] [address] [place] [phone] Alvarez Braga, DO [address] [place] [address] ESOPHAGOGASTRODUODENOSCOPY DIAGNOSTIC [14622 (CPT )] Scheduled Orders Name Type Priority Associated Diagnoses Orde r Schedule EGD GI Routine Nausea 1 Occurrences starting 09/29/2024 until 09/29/2025 Scheduled Procedures Name Priority Associated Diagnoses Date/Ti me ESOPHAGOGASTRODUODENOSCOPY DIAGNOSTIC Screen for colon cancer 10/13/2024 7:30 AM EDT COLONOSCOPY DIAGNOSTIC / SCREENING Screen for colon cancer 10/13/2024 7:30 AM EDT documented as of this encounter Goals Goal Patient Goal Type Associated Problems Recent Progress Patient-Stated? Author Autogenera gurjit Goal Care Plan Autogenerated Problem No Dasha Benavidez documented as of this encounter Visit Diagnoses Diagnosis Encounter for screening colonoscopy- Primary Chronic diarrhea Diarrhea Family history of colon cancer in father Nausea Nausea alone Screen for colon cancer Special screening for malignant neoplasms, colon documented in this encounter Additional Health Concerns Active Problems Noted Date Diagnosed Date Autogenerated Problem 09/13/2024 documented as of this encounter Care Teams Dental Assistant Instructor Relationship Specialty Start Date End Date Kait Real MD [address] [phone] PCP - General Family Medicine 10/07/17 documented as of this encounter
--- OUTSIDE RECORDS SUMMARY | 2024-09-29 21:02 | XMS_ITS | Continuity of Care Document ---
Author Organization [facility] Address [address] [place] [address] Phone Care Team Providers Care Corn Chip Maker Name Role Phone Kait Real MD Primary Care Provider Ghulam Thrasher DO Attending Provider [phone] Care Teams Patient Care Team Team Status: Active Member Role Status Casey Real MD Primary Care Provider Active Visit Care Team Team Status: Inactive Member Role Status Casey Real MD Primary Care Provider Active Start: September 22, 2024 End: September 22, 2024 Ghulam Thrasher DO Attending Provider Active Start: September 22, 2024 End: September 22, 2024 Chief Complaint and Reason for Visit Chief Complaint Admit Date Z12.31 September 22, 2024 12:20 pm Allergies, Adverse Reactions, Alerts Allergen Type Severity Reaction Last Updated Verified Status codeine Allergy Unknown Unknown Reaction November 12, 2023 9:03am Yes Active Social History Smoking Status Status Start Date End Date Date of Observa tion Never smoked tobacco (finding) November 12, 2023 9:05am Observation Status Observation Response Date of Response Patient Sex Female September 23, 2024 1 2:09am Assigned Sex Female [birth year] 959 Family History Relationship Condition Age at Onset Recorded Date/T christin father Malignant neoplasm of colon Unknown Problems Active Problems Medical Problem Onset Date Status Change in bowel habits Active Family hx of colorectal cancer A ctive Collagen disease Active Reactive airway disease Active Anemia Active Atrial fibrillation Active Degenerative joint disease Activ e Thrombocytopenia Active Granulomatous lung disease Activ e Abdominal pain Active Medications Medication Status Dose Units Route Directions Qty Days St art Date Stop Date End Date Instructions Albuterol Sulfate (Proair Hfa) 90 mcg/actuatio n HFA aerosol inhaler Active INHALA TION August 26, 2023 12:00a m FreeTextSi puffs as needed Inhalation up to 4 times/day; Note: Source Status: Taking; Refills: 5; Provider: Shine Griggs Loperamide (Imodium A-D) 2 mg tablet Active 1 TAB PO Four times daily August 26, 2023 12:00a m FreeTextSi tablet as needed Orally Four times a day; Note: Source Status: Taking; Provider: Shine Moore ( ) Ibuprofen 200 mg capsule Active 1 CAP PO Three times daily August 26, 2023 12:00a m FreeTextSi capsule with food or milk as needed Orally Three times a day; Note: Source Status: Taking; Provider: Shine Moore ( ) Latanoprost 0.005 % drops Active DROPS OPHTHA LMIC August 26, 2023 12:00a m FreeTextSig: INSTILL 1 DROP IN BOTH EYES EVERY EVENING Ophthalmic; Note: Source Status: Taking; Refills: 0; Qty: 2.5 Milliliter; Provider: Balaji Arceo Levothyroxin e 88 mcg tablet Active 88 MCG PO Daily August 26, 2023 12:00a m Vitamin D Active PO August 26, 2023 12:00a m Aspirin 81 mg capsule Active 81 MG PO Daily August 26, 2023 12:00a m Multi Discont inued PO August 26, 2023 12:00a m November 02, 2023 1:56p m Dicyclomine 20 mg tablet Discont inued 20 MG PO Twice daily 60 30 August 26, 2023 12:00a m November 12, 2023 9:04a m Sod Picosulf-Mag Ox-Citric Ac (Clenpiq) 10 mg-3.5 gram- 12 gram/175 mL solution Discont inued 175 ML PO Daily 350 0 August 26, 2023 12:00a m November 02, 2023 1:56p m take first dose at 3:00 PM followed by four 8oz glasses of liquid take second dose at 9:00 PM followed by 3 8oz glasses of liquid Procedures Procedure Date Performed Status MM screening mammo BI w/CAD September 22, 2024 12:21 pm completed Relevant Diagnostic Tests and/or Laboratory Data Diagnostic Imaging Reports Author Harshal Hauser [facility] Report Date/Time September 22, 2024 2:20p m [facility] [address] [place] [address] [place] [address] Mammography Report Signed Patient: Valerie Yee MR#: [id number] : 1960 Acct:[id number] Age/Sex: 64 / F Adm Date: 5 Loc: [place] Room: Type: [facility] CLI Attending Dr: Ghulam Thrasher DO Ordering Provider: Ghulam Thrasher DO Date of Service: 09/22/24 Procedure(s): MM screening mammo BI w/CAD Accession Number(s): ([id number]) MM/MM screening mammo BI w/CAD: SCREENING Copies to: MD Ghulam Shi DO~ CLINICAL DATA: Screening for malignancy. BILATERAL SCREENING MAMMOGRAMS - FULL FIELD DIGITAL WITH TOMOSYNTHESIS AND CAD Tomosynthesis craniocaudal and mediolateral oblique views of both breasts were obtained using low-dose digital technique. Comparison is made to prior studies from 09/19/2023, 08/30/2022, and 08/03/2021. This examination was reviewed with theaid of CAD. The breast parenchyma is heterogeneously dense. Benign-appearing lymph nodes are noted along the chest wall. Benign-appearing calcifications are present. There are no dominant masses, typically malignant calcifications or architectural distortion. There has been no significant interval change. MM/MM screening mammo BI w/CAD IMPRESSION: NO MAMMOGRAPHIC EVIDENCE OF MALIGNANCY. ROUTINE FOLLOW-UP IS RECOMMENDED IN ONE YEAR. RESULT CODE: 2 Benign Findings(s) DENSITY CODE: 3 (approximately 51-75% glandular) The breasts are heterogeneouslydense, which may obscure small masses. FOLLOW UP: 1YR The false-negative rate of mammography is approximately 10-percent. Management of a palpable abnormality must be based on clinical grounds. Patient was entered into a reminder system with a target due date for the next mammogram. Impression dictated by: Harshal Hauser M.D. 09/22/2024 2:20 PM Dictation Location: [facility] Dictated By: Harshal Hauser II, MD 09/22/24 1415 Signed By: <Electronically signed by Harshal Hauser II, MD in OV> 09/22/24 1420 Advance Directives Advance Directive Response Recorded Date/ Time Advance Directives Yes November 11 9:26am Insurance Providers Guarantor Valerie Yee Address [address] [place] [phone] Contact Info. Home Phone: Payer Policy Id Coverage Id Subscriber's Name Subscriber Id Effective Date Expiration Date [facility] [id number] Valerie Yee [id number] Medicare [id number] Valerie Yee [id number] Encounters Encounter Location(s) Arrival/Admit Date Discharge/Depart Date Provider(s) [facility] September 22, 2024 12:20pm September 22, 2024 12:21pm Heather Evans DO
--- OUTSIDE RECORDS SUMMARY | 2024-09-30 09:45 | XMS_ITS | Encounter Summary ---
Author Organization [facility] Address [address] [place] [address] Care Team Providers Care Motorcycle Mechanic Apprentice Name Role Phone Kait Real MD Primary Care Provider [phone] Kait Real MD Unavailable [phone] Reason for Visit * Reason Comments Gynecologic Exam Medicare off year.LM P: SAV BSO 2007HRT: NoneLast pap 09-29-23 neg.Last mammogram 09[place]22-24 [facility] Denies breast, urinary, or bowel concerns. Colonoscopy scheduled next month. Encounter Details Date Type Department Care Team (Latest Contact Info) Description 09/30/2024 9:45 AM EDT Office Visit [facility] [address] [place] [phone] Ghulam Thrasher, DO [address] [place] [address] Postmenopausal atrophic vaginitis; Breast cancer screening by mammogram Social History Tobacco Use Types Packs/Day Years Used Date Smoking Tobacco: Never Passive Smoke Exposure: Past Smokeless Tobacco: Never Comments:none Alcohol Use Standard Drinks/Week Comments Yes 1 (1 standard drink = 0.6 oz pure alcohol) caffeine intake: 2-3 cups per day coffee and tea B1300 Health Literacy Answer Date Recor ded How often do you need to hav e someone help you when you read instructions, pamphlets, or other written material from your doctor or pharmacy? Never 04/14/2024 Humiliation, Afraid, Rape, and Kick questionnair e Answer Date Recorded Within the last year, have y ou been afraid of your partner or ex-partner? No 11/12/2022 Within the last year, have y ou been humiliated or emotionally abused in other ways by your partner or ex-partner? No Within the last year, have y ou been kicked, hit, slapped, or otherwise physically hurt by your partner or ex-partner? No 11/12/2022 Within the last year, have y ou been raped or forced to have any kind of sexual activity by your partner or ex-partner? No 11/12/2022 Social Connection and Isolat ion Panel [NHANES] Answer Date Recorded In a typical week, how many times do you talk on the phone with family, friends, or neighbors? More than three times a week 04/14/2024 How often do you get togethe r with friends or relatives? More than three times a week 04/14/2024 How often do you attend [facility] or muslim services? More than 4 times per year 04/14/2024 Do you belong to any clubs o r organizations such as mu-ism groups, unions, fraternal or athletic groups, or school groups? No 04/14/2024 How often do you attend meet ings of the clubs or organizations you belong to? Never 04/14/2024 Are you , , di vorced, , never , or living with a partner? 04/14/2024 AUDIT-C Answer Date Recorded Q1: How often do you have a drink containing alcohol? Never 09/30/2024 Q2: How many drinks containi ng alcohol do you have on a typical day when you are drinking? Patient does not drink Q3: How often do you have si x or more drinks on one occasion? Never 09/30/2024 Overall Financial Resource Strain (CARDIA) Answe r Date Recorded How hard is it for you to pa y for the very basics like food, housing, medical care, and heating? Not hard at all 04/14/2024 PHQ-2 Answer Date Recorded Patient Health Questionnaire-2 Score 0 09/30/2024 [facility] - Occupational Stress Questionnaire Answer Date Recorded Do you feel stress - tense, restless, nervous, or anxious, or unable to sleep at night because your mind is troubled all the time - these days? To some extent 04/14/2024 Exercise Vital Sign Answer Date Recorde d On average, how many days pe r week do you engage in moderate to strenuous exercise (like a brisk walk)? 1 day 04/14/2024 On average, how many minutes do you engage in exercise at this level? 10 min 04/14/2024 Hunger Vital Sign Answer Date Recorded Within the past 12 months, y ou worried that your food would run out before you got the money to buy more. Never true 04/14/20 24 Within the past 12 months, t he food you bought just didn't last and you didn't have money to get more. Never true 04/14/2024 PRAPARE - Transportation Answer Date Re corded In the past 12 months, has l ack of transportation kept you from medical appointments or from getting medications? No 04/03 In the past 12 months, has l ack of transportation kept you from meetings, work, or from getting things needed for daily living? No 04/14/2024 Housing Stability Vital Sign Answer Pepito e Recorded In the last 12 months, was t here a time when you were not able to pay the mortgage or rent on time? No 11/12/2022 In the last 12 months, how many places have you lived? 1 11/12/2022 In the last 12 months, was t here a time when you did not have a steady place to sleep or slept in a [place] (including now)? No 11/12/2022 Housing Stability Vital Sign Answer Pepito e Recorded In the last 12 months, was t here a time when you were not able to pay the mortgage or rent on time? No 04/14/2024 In the past 12 months, how m any times have you moved where you were living? 0 04/14/2024 At any time in the past 12 m [facility], were you homeless or living in a [place] facility (including now)? No 04/14/2024 Comments No Sex and Gender Information Value Date Recorded Sex Assigned at Female 09/16/2022 11:34 AM EDT Legal Sex Female 7:07 PM EDT Gender Identity Female 09/16/2022 11:34 AM EDT Sexual Orientation Not on file documented as of this encounter Last Filed Vital Signs Vital Sign Reading Time Taken Comments Blood Pressure 128/68 09/30/2024 9:50 AM EDT Pulse - - Temperature - - Respiratory Rate - - Oxygen Saturation - - Inhaled Oxygen Concentration - - Weight 60.3 kg (133 lb) 09/30/2024 9:50 AM EDT Height 156.2 cm (5' 1.5 ) 09/30/2024 9:50 AM EDT Body Mass Index 24.72 09/30/2024 9:50 AM EDT documented in this encounter Functional Status * Audit-C Score Answer Date of Assessment Author 0 09/30/2024 9:52 AM EDT Luis Ochoa MA * Question Answer Date of Assessment Author Q1: How often do you have a drink containing alcohol? Never 09/30/2024 9:52 AM EDT Marianna Ochoa MA Q2: How many drinks containing alcohol do you have on a typical day when you are drinking? Patient does not drink 09/30/2024 9:52 AM EDT Marianna Ochoa MA Q3: How often do you have six or more drinks on one occasion? Never 09/30/2024 9:52 AM Marianna Brambila MA * Over the past 2 weeks, how often have you been bothered by any of the following problems? Question Answer Date of Assessment Author Little interest or pleasure in doing things Not at all 09/30/2024 9:52 AM Marianna Brambila MA Feeling down, depressed, or hopeless Not at all 09/30/2024 9:52 AM GONZALEZT Marianna Ochoa MA Patient Health Questionnaire -2 Score 0 09/30/2024 9:52 AM GONZALEZT Marianna Ochoa MA documented as of this encounter Progress Notes * Lynn Park MA - 09/30/2024 9:45 AM EDT Images from the original note were not included. Ghulam Thrasher, DO Obstetrics and Gynecology Valerie Yee 1960 09/30/24 [id number] Yearly Wellness Exam Chief Complaint Patient presents with Gynecologic Exam Medicare off year. LMP: SAV BSO 2007 HRT: None Last pap 09-29-23 neg. Last mammogram 09-22-24 [facility]. Denies breast, urinary, or bowel concerns. Colonoscopy scheduled next month. Visit Vitals BP 128/68 Ht 5' 1.5 Wt 133 lb BMI 24.72 kg/m?? OB Status Hysterectomy Smoking Status Never BSA 1.62 m?? OB History Para Term AB Living 3 3 3 0 0 3 SAB IAB Ectopic Multiple Live Births 3 # Outcome Date GA Lbr Gianni/2nd Weight Sex Type Anes PTL Lv 3 Term CS-LTranv VINH 2 Term CS-LTranv VINH 1 Term CS-LTranv VINH Obstetric Comments Heaviest weighed 8 lbs 3 oz Current Outpatient Medications Medication Sig Dispense Refill dilTIAZem CD (Cardizem CD) 120 MG 24 hr capsule Take 120 mg by mouth Daily omeprazole (PriLOSEC) [address] capsule Take 20 mg by mouth in the morning. acetaminophen (Tylenol) 500 MG tablet Take 500 mg by mouth every 6 (six) hours if needed albuterol (2.5 MG/3ML) 0.083% nebulizer solution Take 3 mL (2.5 mg) by nebulization every 4 (four) hours if needed for wheezing 75 mL 0 albuterol HFA 90 mcg/act inhaler Inhale 2 puffs every 4 (four) hours if needed for wheezing or shortness of breath (cough) for up to 10 days 18 g 0 cholecalciferol (Vitamin D-3) 25 MCG (1000 UT) capsule Take 2 capsules by mouth in the morning. GLUCOSAMINE SULFATE PO Take 1,000 mg by mouth in the morning and 1,000 mg in the evening. ibuprofen 200 MG tablet 1 tablet with food or milk as needed Orally daily prn latanoprost (Xalatan) 0.005 % ophthalmic solution INSTILL 1 DROP IN BOTH EYES EVERY EVENING levothyroxine (Synthroid, Levoxyl) 88 MCG tablet Take 1 tablet (88 mcg) by mouth in the morning. Take before meals. 90 tablet 3 Lidocaine-Hydrocort, Perianal, 3-0.5 % cream if needed loperamide (Imodium A-D) 2 MG tablet Take 1 tablet by mouth every 6 (six) hours if needed for diarrhea. Multiple Vitamin (MULTI-VITAMINS PO) 1 (one) time each day at the same time. triamcinolone (Kenalog) 0.1 % cream APPLY TO THE AFFECTED AREA IN THE MORNING and AT BEDTIME FOR 10DAYS 15 g 0 No current facility-administered medications for this visit. Allergies Allergen Reactions Atorvastatin Headache Codeine GI intolerance Hydrocodone-Acetaminophen Other Reaction(s): dizziness, vomiting Morphine Other Reaction(s): dizziness, vomiting Oxycodone-Acetaminophen Other Reaction(s): dizziness, vomiting Latex Rash Past Surgical History: Procedure Laterality Date ABLATION A-FIB 2000 BIOPSY 10/2016 Gum biopsy- Dr Zapata BRONCHOSCOPY 04/08/2012 with bronchoalveolar lavage - Dr. Pendleton CARDIAC CATHETERIZATION [address] Larkin CATARACT EXTRACTION Left 08/04/2024 SECTION, LOW TRANSVERSE x3 CHOLECYSTECTOMY 2006 COLONOSCOPY 10/04/2007 Dr. Araujo COLONOSCOPY 07/2016 EGD - Dr. De Leon COLPOSCOPY [place] : Disease: Dysplasia of cervix CYSTOSCOPY 2004 CYSTOSCOPY W/ URETERAL STENT PLACEMENT Right 01/07/2007 Dr. Cole DRAIN CATH FLUID CLLXN SINGH/RETR 2012 Procedure:cook cath. to drain fluid in lungs MOUTH SURGERY 01/28/2024 MRCP 11/23/2017 PERICARDIECTOMY 08/06/2012 Radical pericardiectomy - Dr. Pena Schwann PERICARDIOCENTESIS 07/23/2012 Dr. 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 Allergy: Denies medication reaction. Ocular: Denies visual acuity change. ENT: Denies hearing change. Endoc: Denies weight loss. Resp: Denies dyspnoea, wheezing. Cardiac: Denies angina, palpitations. GI: Denies nausea, vomiting. Haem: Denies bleeding. : Denies incontinence. MSK: Denies arthralgias, joint oedema. Derm: Denies rash, hair loss. Neuro: Denies ataxia, tremor. Also see HPI for elements of ROS documented therein and for details of positive findings, which shall supersede the foregoing. EXAM GENERAL EXAMINATION alert oriented well developed, well nourished. HEAD: normocephalic atraumatic. EYES: sclera anicteric. EARS: no obvious hearing deficit. NECK/THYROID: neck supple no cervical lymphadenopathy no thyromegaly. LYMPH NODES: no axillary, supraclavicular or inguinal adenopathy. SKIN: warm and dry. HEART: regular rate and rhythm. LUNGS: clear to auscultation bilaterally. CHEST:axillary nodes grossly normal. BREASTS:no masses palpable bilaterally, normal nipples bilaterally - everted - fatty replaced - dense - well supported- axilla negative. ABDOMEN: soft, nontender, nondistended, no masses palpable. BACK: no costovertebral angle tenderness, no obvious scoliosis/kyphosis. 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 EXTREMITIES no edema. NEUROLOGIC: alert and oriented. PSYCH: cooperative with exam. ICD-10-CM 1. Postmenopausal atrophic vaginitis N95.2 Pelvic and breast exam completed. Findings of today's exam discussed with the patient. Continue MSBE. Ca/Vit D recommendations reviewed with the patient. The patient is to contact the office with anychanges to her gynecological condition or any changes with breast or bleeding. The patient is to return in 1 year or as needed 2. Breast cancer screening by mammogram Z12.31 Bilateral screening mammogram with tomosynthesis Screening mammogram ordered. Patient to call and schedule. Has colonoscopy in 2 weeks- one previous was 7 years ago. Father history of colon cancer. Entered by Lynn Park MA acting as scribe for Dr. Ghulam Thrasher. Signature Lynn Park MA Date 09/30/24 . Time 9:52 AM . The documentation recorded by the scribe accurately reflects the service(s) I personally performed and the decisions I made. Signature Rhys Thrasher D.O. Date 09/30/24 Time 5:00PM. documented in this encounter Plan of Treatment Upcoming Encounters Date Type Department Care Team (Late st Contact Info) Description 10/06/2025 9:45 AM EDT Office Visit [facility] [address] [place] [id number] Ghulam Thrasher, [address] [place] [address] Scheduled Orders Name Type Priority Associated Diagnoses Orde r Schedule Bilateral screening mammogram with tomosynthesis Imaging Routine Breast cancer screening by mammogram Expected: 09/23/2025, Expires: 11/30/2025 documented as of this encounter Visit Diagnoses Diagnosis Postmenopausal atrophic vaginitis Breast cancer screening by mammogram documented in this encounter Additional Health Concerns Assessment Noted Time PHQ-9 Depression Total Score: 5 11/14/19 23 10:00 AM EDT documented as of this encounter Care Teams Motorcycle Mechanic Apprentice Relationship Specialty Start Date End Date Kait Real MD PCP - General 09/16/22 Kait Real MD PCP - ACO Reach 06/10/24 documented as of this encounter
--- OUTSIDE RECORDS SUMMARY | 2024-10-06 15:40 | XMS_ITS | Encounter Summary ---
Author Organization [facility] Web[employer] tem Address [id number] [place] [address] Care Team Providers Care Power Plant Operator Apprentice Name Role Phone Kait Real MD Primary Care Provider [phone] Encounter Details Date Type Department Care Team (Late st Contact Info) Description 10/06/2024 3:40 PM EDT Support Visit [facility] - Pre Admit [address] [place] [phone] Social History Tobacco Use Types Packs/Day Years [...] Sign Reading Time Taken Comments Blood Pressure - - Pulse - - Temperature - - Respiratory Rate - - Oxygen Saturation - - Inhaled Oxygen Concentration - - Weight 60.3 kg (133 lb) 10/06/2024 12:58 PM EDT Height 157.5 cm (5' 2 ) 10/06/2024 12:58 PM EDT Body Mass Index 24.33 10/06/2024 12:58 PM EDT documented in this encounter Miscellaneous Notes * Perioperative Nursing Note - Ana Luisa Gavin RN - 10/06/2024 3:40 PM EDT Preoperative Education Checklist- General Surgery date: 10/13/24 Surgery time: 729 Arrival time: 609 1. Bring a photo ID and your insurance card with you the day of surgery. You will check in at the main lobby of the [facility]- registration desk is straight ahead as soon as you walk in. Tell them you are here for surgery. 2. If you have a Living Will/Durable Power of Stem Dryer Maintainer for Health Care that is not on file here, please bring a copy the day of surgery. 3. Please shower/bathe the night before surgery with the provided soap or wipes. Do not shower the morning of surgery- you will do use wipes when you arrive here at the hospital before getting into your surgical gown. Do not shave the area of your procedure for 2 days prior to your surgery. 4. NO powder, lotion, perfume/cologne, aftershave, make-up, deodorant, or hair products after you have bathed. 5. NO nail angolan/acrylic on at least one finger. If you are having a hand, wrist or foot surgery then all nail angolan and artificial/acrylic nails must be removed from that hand or foot. 6. Avoid ALL Aspirin and non-steroidal anti-inflammatory drugs and certain vitamins (Ibuprofen, Advil, Aleve, Excedrin, Meloxicam, Celebrex, fish/krill oil, etc.) for 7 days prior to surgery as instructed by your surgeon and/or your prescribing doctor. Tylenol IS ALLOWED. If you are on Ticlid, Xarelto, Eliquis, Pradaxa, Plavix or Coumadin, please check with your prescribing doctor for instructions for when to stop them. 7. If you use an inhaler, continue to use it routinely. 8. Nothing to eat or drink (not even water, gum, mints, or hard candy!) AFTER midnight prior to your surgery. 9. Take only medications that you are instructed to on the morning of surgery with a TINY SIP OF WATER. 10. Choose a responsible adult that will be able to drive you home when you are discharged from your hospital stay for your surgery and can stay with you in your home for 24 hours after your procedure. You must NOT drive any vehicle or operate any machinery for 24 hours after surgery. 11. When you dress for your appointment, please wear loose fitting clothing that is appropriate to accommodate your surgical area procedure. BRING WITH YOU ANY DEVICES YOU MAY NEED: NICOLE hose, ice machine, sling/swath, brace or special shoe, oversized zip-up or button up shirt, CPAP machine if staying overnight. 12. Do NOT wear jewelry, watches, or any piercings or metal for surgery- leave these valuables and money at home. 13. Do NOT wear contact lenses for surgery- glasses are okay if needed. 14. The anesthesiologist will talk with you the day of surgery and will ask you to sign a Consent Form. 15. Refrain from smoking or any type of tobacco use for at least 8 hours and marijuana for 24 hoursprior to arrival for your surgery. 16. Notify your surgeon if you develop any illness before your surgery. 17. If you are staying overnight, please DO NOT BRING your home medications with you. 18. If you have any questions prior to surgery, please call the Preadmission Testing office at [phone], Mon.-Fri. 7 a.m.-3 p.m. Leave a voicemail if needed. Pre-Surgery Instructions: Medication Instructions acetaminophen (TYLENOL EXTRA STRENGTH) 500 mg tablet Stop taking 0 days prior to procedure albuterol (PROVENTIL,VENTOLIN) 2.5 mg /3 mL (0.083 %) nebulizer solution Take morning of procedure,as needed aspirin 81 mg Stop taking 1 week prior to procedure cholecalciferol, vitamin D3, 25 mcg (1,000 unit) capsule Stop taking 0 days prior to procedure glucosamine sulfate (GLUCOSAMINE ORAL) Stop taking 0 days prior to procedure ibuprofen (ADVIL,MOTRIN) 200 mg tablet Stop taking 1 week prior to procedure latanoprost (XALATAN) 0.005 % ophthalmic solution Stop taking 0 days prior to procedure levothyroxine (SYNTHROID, LEVOTHROID) 88 MCG tablet Continue as prescribed, take morning of procedure loperamide (IMODIUM A-D) 2 mg tablet Stop taking 0 days prior to procedure multivitamin (THERAGRAN) tablet Stop taking 0 days prior to procedure omeprazole (PriLOSEC) 20 mg capsule Continue as prescribed, take morning of procedure PROAIR HFA 90 mcg/actuation inhaler Take morning of procedure, as needed sod sulf-pot chloride-mag sulf 1.479-0.188- 0.225 gram tablet Stop taking 0 days prior to procedure documented in this encounter Plan of Treatment Upcoming Encounters Date Type Department Care Team (Latest Contact Info) Description 10/13/2024 7:30 AM EDT Hospital Encounter [facility] [id number] [place] [address] Alvarez Braga, DO [address] [place] [address] 10/13/2024 7:30 AM EDT Anesthesia Event [facility] [address] [place] [address] Faraz Hadley, DO [address] [facility] [place] [address] 10/13/2024 7:30 AM EDT - 10/13/2024 8:15 AM EDT Surgery [facility] [address] [place] [address] Alvarez Braga, DO [address] [place] [address] ESOPHAGOGASTRODUODENOSCOPY DIAGNOSTIC [43683 (CPT )] Scheduled Procedures Name Priority Associated Diagnoses Date/Ti me ESOPHAGOGASTRODUODENOSCOPY DIAGNOSTIC Screen for colon cancer 10/13/2024 7:30 AM EDT COLONOSCOPY DIAGNOSTIC / SCREENING Screen for colon cancer 10/13/2024 7:30 AM EDT documented as of this encounter Goals Goal Patient Goal Type Associated Problems Recent Progress Patient-Stated? Author Autogenera nicole Goal Care Plan Autogenerated Problem No Dasha Benavidez documented as of this encounter Visit Diagnoses Not on filedocumented in this encounter Additional Health Concerns Active Problems Noted Date Diagnosed Date Autogenerated Problem 09/13/2024 documented as of this encounter Care Teams Power Plant Operator Apprentice Relationship Specialty Start Date End Date Addie, Kait Barrios MD [address] [place] [address] PCP - General Family Medicine 10/07/17 documented as of this encounter
--- OUTSIDE RECORDS SUMMARY | 2024-10-10 09:39 | XMS_ITS | Encounter Summary ---
Author Organization [employer] Address [id number] [place] [address] Care Team Providers Care Cruise Guide Name Role Phone Kait Real MD Primary Care Provider [phone] Encounter Details Date Type Department Care Team (Latest Contact Info) Description 09/27/2024 Travel Social History Tobacco Use Types Packs/Day Years [...] got money to buy more. Never True 07/04/2024 Within the past 12 months th e food we bought just didn't last and we didn't have money to get more. Never True 07/04/2024 Purpose - Life Answer Date Recorded Purpose and direction in life Unknown Comments No Sex and Gender Information Value Date Recorded Sex Assigned at Not on file Legal Sex Female 11:52 AM EDT Gender Identity Not on file Sexual Orientation Not on file documented as of this encounter Plan of Treatment Upcoming Encounters Date Type Department Care Team (Latest Contact Info) Description 10/13/2024 7:30 AM EDT Hospital Encounter [facility] Surgery [address] [facility] [place] [phone] Alvarez Braga, DO [address] [place] [address] 10/13/2024 7:30 AM EDT Anesthesia Event [facility] Surgery [address] [place] [facility] [place] [phone] Faraz Hadley, DO [address] [place] [address] 10/13/2024 7:30 AM EDT - 10/13/2024 8:15 AM EDT Surgery [facility] [address] [place] [facility] [place] [phone] Alvarez Braga, DO [address] [place] [address] ESOPHAGOGASTRODUODENOSCOPY DIAGNOSTIC [93550 (CPT )] Scheduled Procedures Name Priority Associated [...] documented as of this encounter Care Teams Cruise Guide Relationship Specialty Start Date End Date Addie, Kait Barrios MD [address] [place] [address] PCP - General Family Medicine 10/07/17 documented as of this encounter
--- OUTSIDE RECORDS SUMMARY | 2024-10-10 09:39 | XMS_ITS | Clinical Summary ---
Author Organization [facility] Address [address] [place] [address] Care Team Providers Care Correctional Officer Lieutenant Name Role Phone Kait Real MD Primary Care Provider [phone] Allergies Active Allergy Reactions Criticality Noted Date Comments Atorvastatin Headache 04/14/2023 Codeine Dizziness,GI intolerance,Nausea Only,Nausea And Vomiting 01/05/2014 Hydrocodone-Acetaminoph en Unknown 09/19/2022 Other Reaction(s): dizziness, vomiting Latex Rash Low 09/19/2022 Medications Medication Sig Dispensed Refills Start Date End Date Status latanoprost (Xalatan) 0.005 % ophthalmic solution 11/01/2022 Active levothyroxine (Synthroid, Levoxyl) 88 mcg tablet Take 88 mcg by mouth in the morning. 12/29/2022 Active cholecalciferol, vitamin D3, (Vitamin D3) 10 mcg (400 unit) capsule 05/04/2022 Active albuterol 2.5 mg /3 mL (0.083 %) nebulizer solution Inhale 2.5 mg every 4 (four) hours if needed. 04/15/2024 Active albuterol 90 mcg/actuation inhaler INHALE 2 PUFFS BY MOUTH EVERY 4 HOURS NEEDED for SHORTNESS OF BREATH or FOR WHEEZING 04/15/2024 Active aspirin 81 mg EC tablet Take 81 mg by mouth 3 (three) times a week. Active Active Problems Problem Noted Date Diagnosed Date Pure hypercholesterolemia 08/01/2024 Atrial tachycardia 05/02/2024 Asthma 11/13/2023 Collagen disorder 09/29/2023 Degenerative joint disease 09/29/2023 Family hx of colorectal cancer 09/29/2023 Gross hematuria 07/01/2023 Overview (05/02/2024): 07/01/23: Recent gross hematuria. Will send urine for culture and check CT Urogram 12/30/23: CT negative. No further episodes of gross hematuria. She has never smoked. 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 SHe had a ct of the chest yesterday at [place]. We reviewed that report which dated there was limited imaging of her abdomen but no suspicious findings. 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 03/05/2023 Irritable bowel syndrome with diarrhea 3 03/05/2023 Iron deficiency anemia 07/06/2012 Malaise and fatigue 07/06/2012 03/05/2023 Pleural effusion 07/06/2012 03/05/2023 Resolved Problems Problem Noted Date Diagnosed Date Resolved Date Anxiety 11/13/2022 03/05/2023 05/02/2024 Grief 09/19/2022 03/05/2023 05/02/2024 Gastroesophageal reflux disease 07/06/2012 3 05/02/2024 Encounters Date Type Department Care Team Description 08/01/2024 9:00 AM EDT Office Visit [facility] [place] [address] [place] [address] Yvonne Dueñas MD Heart palpitations (Primary Dx); Atrial tachycardia; Constrictive pericarditis; S/P pericardial operation; Pure hypercholesterolemia from Last 3 Months Family History Medical History Relation Name Comments Heart attack Mother Relation Name Status Comments Mother Social History Tobacco Use Types Packs/Day Years Used Date Smoking Tobacco: Never Smokeless Tobacco: Never Alcohol Use Standard Drinks/Week Comments Not Currently 0 (1 standard drink = 0.6 oz pur e alcohol) rare [place] Safety & Environment Answer Date Rec orded Fear of Current or Ex-Partner Not on file Emotionally Abused Not on file 06/25/2023 Physically Abused Not on file 06/25/2023 Sexually Abused Not on file 06/25/2023 Physically or Sexually Abused Not on file Sex and Gender Information Value Date Recorded Sex Assigned at Female 03/03/2023 9:55 AM EDT Gender Identity Female 03/03/2023 9:55 AM EDT Sexual Orientation Heterosexual or Straight 02/03 9:55 AM EDT Last Filed Vital Signs Vital Sign Reading Time Taken Comments Blood Pressure 131/65 08/01/2024 8:56 AM EDT Pulse 72 08/01/2024 8:56 AM EDT Temperature - - Respiratory Rate - - Oxygen Saturation 98% 08/01/2024 8:56 AM EDT Inhaled Oxygen Concentration - - Weight 61.7 kg (136 lb) 08/01/2024 8:56 AM EDT Height 157.5 cm (5' 2 ) 08/01/2024 8:56 AM EDT Body Mass Index 24.87 08/01/2024 8:56 AM EDT Plan of Treatment Health Maintenance Due Date Last Done Comments CT Colonography 1958 FIT-DNA 1958 FIT 1958 FOBT 1960 Medicare Annual Wellness (AWV) 1960 Sigmoidoscopy 1958 Depression Screening 1970 Adult Tetanus 1980 Mammogram 1998 Pneumococcal Vaccine: 65+ Years (2 of 2 - PCV) 03/13/2022 03/13/2021, 04/20/2012 Fall Risk Screening 07/26/2023 COVID-19 Vaccine ( - 2023-2 5 season) 2024 Influenza Vaccine (Season Ended) 2025 Colonoscopy 07/30/2026 07/30/2016 Colorectal Cancer Screening 07/30/2026 Zoster Vaccines Completed 03/14/2022, 11/26/2021, 01/11/2015 HIB Vaccines Aged Out No longer eligi ble based on patient's age to complete this topic HPV Vaccines Aged Out No longer eligi ble based on patient's age to complete this topic IPV Vaccines Aged Out No longer eligi ble based on patient's age to complete this topic Meningococcal B Vaccine Aged Out No l onger eligible based on patient's age to complete this topic Meningococcal Vaccine Aged Out No omar ryan eligible based on patient's age to complete this topic Rotavirus Vaccines Aged Out No longer eligible based on patient's age to complete this topic Advance Directives Documents on File Type Date Recorded Patient Emt I/99 Expl anation Advance Directives and Livin g Will 05/02/2024 8:49 AM Care Teams Correctional Officer Lieutenant Relationship Specialty Start Date End Date Kait Real MD [address] [place] [address] PCP - General 03/03/23
--- OUTSIDE RECORDS SUMMARY | 2024-10-10 09:39 | XMS_ITS | Encounter Summary ---
Author Organization [facility] Address [address] [place] [address] Care Team Providers Care Electrical Technology Instructor Name Role Phone Kait Real MD Primary Care Provider [phone] Source Comments In the event this information is protected by the Federal Confidentiality of Alcohol and Drug AbusePatient Records regulations: The Federal rules restrict any use of the information to criminally investigate or prosecute any alcohol or drug abuse patient.[facility] Encounter Details Date Type Department Care Team (Late st Contact Info) Description 12/13/2020 Patient Msg [facility] [address] [id number] Provider, [facility] Upcoming video visit Social History Tobacco Use Types Packs/Day Years Used Date Smoking Tobacco: Never Smokeless Tobacco: Never Alcohol Use Standard Drinks/Week Comments Yes 0 (1 standard drink = 0.6 oz pur e alcohol) socially Area Deprivation Index Answer Date Miguel rded National Score (1-100), lower number is lower ri sk Not on file 04/11/2020 State Score (1-10), lower number is lower risk N ot on file 04/11/2020 Data from: https://www.neighborhoodatlas.medicine.[facility].edu/. Last address used for calculation Not on file 04/11/2020 Comments No Sex and Gender Information Value Date Recorded Sex Assigned at Female 02/07/2019 4:53 PM EDT Legal Sex Female 2:21 PM EDT Gender Identity Female 02/07/2019 4:53 PM EDT Sexual Orientation Straight 02/07/2019 4: 53 PM EDT COVID-19 Exposure Response Date Recorded In the last month, have you been in contact with someone who was confirmed or suspected to have Coronavirus / COVID-19? No / Unsure 11/17/2020 10:16 AM EDT documented as of this encounter Functional Status * Are you deaf or do you have serious difficulty hearing? Answer Date of Assessment Author No 01/05/2014 9:41 AM EDT Olive Duarte Ma * Are you blind or do you have serious difficulty seeing, even when wearing glasses? Answer Date of Assessment Author Yes 01/05/2014 9:41 AM EDT aCndy Duarte Maa * Do you have serious difficulty walking or climbing stairs? Answer Date of Assessment Author No 01/05/2014 9:41 AM EDT Candy Duarte Maa * Do you have difficulty dressing or bathing? Answer Date of Assessment Author No 01/05/2014 9:41 AM EDT Candy Duarte Maa * Because of a physical, mental, or emotional condition, do you have difficulty doing errands alone such as visiting a doctor's office or shopping? Answer Date of Assessment Author No 01/05/2014 9:41 AM EDT Olive Duarte Ma documented as of this encounter Mental Status * Because of a physical, mental, or emotional condition, do you have serious difficulty concentrating, remembering, or making decisions? Answer Entry Date Author No 01/05/2014 9:41 AM EDT Olive Duarte Ma documented in this encounter Plan of Treatment Not on file documented as of this encounter Visit Diagnoses Not on filedocumented in this encounter Care Teams Electrical Technology Instructor Relationship Specialty Start Date End Date Kait Real MD PCP - General Family Medicine 11/22/13 documented as of this encounter
--- OUTSIDE RECORDS SUMMARY | 2024-10-10 09:39 | XMS_ITS | Encounter Summary ---
Author Organization [employer] [facility] Address [id number] [place] [address] Care Team Providers Care Engineering Assistant Name Role Phone Kait Real MD Primary Care Provider [phone] Encounter Details Date Type Department Care Team (Late st Contact Info) Description 12/30/2023 Telephone [facility] [address] [address] Cristina Mendez PA [address] [place] [address] Social History Tobacco Use Types Packs/Day Years [...] got money to buy more. Never True 12/30/2023 Within the past 12 months th e food we bought just didn't last and we didn't have money to get more. Never True 12/30/2023 Purpose - Life Answer Date Recorded Purpose and direction in life Unknown Comments Unknown Sex and Gender Information Value Date Recorded Sex Assigned at Not on file Legal Sex Female 11:52 AM EDT Gender Identity Not on file Sexual Orientation Not on file documented as of this encounter Miscellaneous Notes * Telephone Encounter - CARI Frederick - 12/30/2023 4:32 PM EDT We will schedule her for a cystoscopy with Dr. Solis in [place]. She will let you know if she prefer local or MAC anesthesia. Diagnosis: Gross hematuria * Telephone Encounter - Maryuri Torres - 12/30/2023 4:32 PM EDT ATTEMPTED TO CALL PATIENT. NO ANSWER, NO VOICEMAIL. * Telephone Encounter - Maryuri Torres - 12/30/2023 4:32 PM EDT ATTEMPTED TO CALL PATIENT AGAIN NO ANSWER, NO VOICEMAIL. * Telephone Encounter - CARI Frederick - 12/30/2023 4:32 PM EDT She told me that she may decide not to go forward with the testing. During her appointment, I explained in detail that without the testing, we won't be able to rule out bladder cancer. She voiced understanding. We had sent a certified letter before and she already understands the risks so I don't think we need to send it again. Thank you documented in this encounter Plan of Treatment Upcoming Encounters Date Type Department Care Team (Latest Contact Info) Description 10/13/2024 7:30 AM EDT Hospital Encounter [facility] - Surgery [address] [place] [phone] Alvarez Braga, [address] [place] [id number] 10/13/2024 7:30 AM EDT Anesthesia Event [facility] - Surgery [address] [facility] [place] [phone] Faraz Hadley, DO [address] [facility] [place] [address] 10/13/2024 7:30 AM EDT - 10/13/2024 8:15 AM EDT Surgery [facility] Surgery [address] [place] [address] Alvarez Braga, DO [address] [place], [place] [id number] ESOPHAGOGASTRODUODENOSCOPY DIAGNOSTIC [97978 (CPT )] Scheduled Procedures Name Priority Associated Diagnoses Date/Ti me ESOPHAGOGASTRODUODENOSCOPY DIAGNOSTIC Screen for colon cancer 10/13/2024 7:30 AM EDT COLONOSCOPY DIAGNOSTIC / SCREENING Screen for colon cancer 10/13/2024 7:30 AM EDT documented as of this encounter Visit Diagnoses Not on filedocumented in this encounter Care Teams Engineering Assistant Relationship Specialty Start Date End Date Addie, Kait Barrios MD [address] [place], [place] [phone] PCP - General Family Medicine 10/07/17 documented as of this encounter
--- OUTSIDE RECORDS SUMMARY | 2024-10-10 09:39 | XMS_ITS | Clinical Summary ---
Author Organization [facility] Address [address] [place], [place] [id number] Care Team Providers Care Technical Instructor Name Role Phone Kait Real MD Primary Care Provider [phone] Allergies Active Allergy Reactions Criticality Noted Date Comments Codeine Vomiting 01/05/2014 Medications Loperamide HCl (IMODIUM) 2 mg tab Take 2 mg by mouth. Active Ibuprofen 100 mg tablet Take 100 mg by mouth every 6 hours as needed. 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 Last address used for calculation Not on file 04/11/2020 Comments No Sex and Gender Information Value Date Recorded Sex Assigned at Female 02/07/2019 4:53 PM EDT Legal Sex Female 2:21 PM EDT Gender Identity Female 02/07/2019 4:53 PM EDT Sexual Orientation Straight 02/07/2019 4: 53 PM EDT Last Filed Vital Signs Vital Sign Reading Time Taken Comments Blood Pressure 145/62 03/25/2019 1:35 PM EST Physician notified Pulse 78 03/25/2019 1:35 PM EST Temperature 36.4 C (97.6 F) 03/25/2019 1:35 PM EST Respiratory Rate 18 03/25/2019 1:35 PM EST Oxygen Saturation 100% 03/25/2019 1:3 5 PM EST Inhaled Oxygen Concentration - - Weight 60.6 kg (133 lb 8 oz) 03/25/2019 1:35 PM EST Height 157 cm (5' 1.81 ) 03/25/2019 1:3 5 PM EST Body Mass Index 24.57 03/25/2019 1:35 PM EST Plan of Treatment Health Maintenance Due Date Last Done Comments Anxiety Screening 1976 Depression Screening 1978 Hepatitis C Screening 1976 DTaP,Tdap,Td Vaccine (1 - Tdap) [address] Colonography 07/26/2003 Cologuard (FIT-DNA) 07/26/2003 Colonoscopy 07/26/2003 Colorectal Cancer Screening 07/26/2003 Fecal Occult Blood 07/26/2003 Sigmoidoscopy 07/26/2003 Pneumococcal Vaccine: 50+ (1 of 1 - PCV) 2008 Shingrix Vaccine (1 of 2) 2008 Diabetes Screening 03/04/2019 03/04/2016, 01/05/2014 Lipid Screening 03/04/2021 03/04/2016 Bone Density Screening 07/26/2023 Covid-19 Vaccine ( season) 2024 Advance Directive Discussion 05/04/2024 Influenza Vaccine (Season Ended) 2025 RSV Vaccine (1 - 1-dose 75+ series) 2033 Procedures Procedure Name Priority Date/Time Associated Diagnosis Comments COMPREHENSIVE METABOLIC PANEL Routine 03/04/2016 8:23 AM EDT History of pericardiectomy LIPID PANEL, FASTING Routine 03/04/2016 8:23 AM EDT History of pericardiectomy from Last 3 Months or Most Recently Relevant to Health Maintenance Results * (ABNORMAL) LIPID PANEL BASIC (03/04/2016 8:23 AM EDT) Triglyceride 45 30 - 149 mg/dL 03/04/2016 8:59 AM EDT [facility] Cholesterol, Total 202(H) 100 - 199 mg/dL 03/04/2016 8:59 AM EDT [facility] HDL Cholesterol 102 >55 mg/dL 6 8:59 AM EDT [facility] VLDL Cholesterol 9 6 - 40 mg/dL 03/04/2016 8:59 AM EDT [facility] LDL Cholesterol, Calculated 91 60 - 129 mg/dL 03/04/2016 8:59 AM EDT [facility] Fasting Time 12 hrs 03/04/2016 8:26 AM EDT [facility] TC:HDL Ratio 1.98 1.00 - 5.00 03/04/2016 8:59 AM EDT [facility] LDL:HDL Ratio 0.89 0.50 - 3.55 03/04/2016 8:59 AM EDT [facility] Non HDL Cholesterol 100 90 - 159 mg/dL 03/04/2016 8:59 AM EDT [facility] Blood specimen (specimen) BLOOD SPECIMEN / Unknown 03/04/2016 8:23 AM EDT 03/04/2016 8:26 AM EDT us Ryan Moore MD LABORATORY Final Result [facility] [address] [place] [address] * (ABNORMAL) COMP METABOLIC PANEL (03/04/2016 8:23 AM EDT) Protein, Total 7.1 6.3 - 8.0 g/dL 03/04/2016 8:59 AM EDT [facility] Albumin 4.3 3.9 - 4.9 g/dL 03/04/2016 8:59 AM EDT [facility] Calcium 8.8 8.6 - 10.0 mg/dL 03/04/2016 8:59 AM [facility] Bilirubin, Total 0.5 0.2 - 1.3 mg/dL 03/04/2016 8:59 AM [facility] Alkaline Phosphatase 121(H) 32 - 117 U/L 03/04/2016 8:59 AM [facility] AST 20 13 - 35 U/L 03/04/2016 8:59 AM [facility] Glucose 103(H) 74 - 99 mg/dL 03/04/2016 8:59 AM [facility] BUN 12 7 - 21 mg/dL 03/04/2016 8:59 AM [facility] Creatinine 0.76 0.58 - 0.96 mg/dL 03/04/2016 8:59 AM [facility] Sodium 142 136 - 144 mmol/L 03/04/2016 8:59 AM [facility] Potassium 3.9 3.7 - 5.1 mmol/L 03/04/2016 8:59 AM [facility] Chloride 104 97 - 105 mmol/L 03/04/2016 8:59 AM [facility] CO2 26 22 - 30 mmol/L 03/04/2016 8:59 AM [facility] Anion Gap 12 9 - 18 mmol/L 03/04/2016 8:59 AM [facility] ALT 23 7 - 38 U/L 03/04/2016 8:59 AM [facility] eGFR- >60 03/04/2016 8:59 AM [facility] eGFR-All Other Races >60 . 03/04/2016 8:59 AM [facility] Comment: eGFR (Estimated GFR) Units of measure: mL/min/1.73 meters squared eGFR is derived from the reexpressed MDRD Study equation using the following parameters: serum creatinine, age, gender and race. The creatinine assay has been calibrated to be traceable to IDMS. An eGFR <60 mL/min/1.73m2 for >3 months is consistent with chronic kidney disease. Refer to KDOQI guidelines for clinical interpretation. In patients with unstable renal function, e.g. those with acute kidney injury, the eGFR may not accurately reflect actual GFR. Blood specimen (specimen) BLOOD SPECIMEN / Unknown 03/04/2016 8:23 AM EDT 03/04/2016 8:26 AM EDT us Ryan Moore MD LABORATORY Final Result [facility] [address] [place] [address] from Last 3 Months or Most Recently Relevant to Health Maintenance Insurance [facility] PPO Care Teams Technical Instructor Relationship Specialty Start Date End Date Kait Real MD PCP - General Family Medicine 11/22/13
--- OUTSIDE RECORDS SUMMARY | 2024-10-10 09:39 | XMS_ITS | Clinical Summary ---
Author Organization [facility] Address [address] [place] [address] Care Team Providers Care Enamel Machine Operator Name Role Phone Kait Real MD Primary Care Provider [phone] Kait Real MD Unavailable [phone] Allergies Active Allergy Reactions Criticality Noted Date Comments Atorvastatin Headache 04/14/2023 Codeine GI intolerance 09/19/2022 Hydrocodone-Acetaminophen 09/19/2022 Other Reaction(s): dizziness, vomiting Latex Rash Low 09/19/2022 Morphine 09/19/2022 Other Reaction(s): dizziness, vomiting Oxycodone-Acetaminophen 09/19/2022 Other Reaction(s): dizziness, vomiting Medications Multiple Vitamin (MULTI-VITAMINS PO) 1 (one) time each day at the same time. Active ibuprofen 200 MG tablet 1 tablet with food or milk as needed Orally daily prn Active loperamide (Imodium A-D) 2 MG tablet Take 1 tablet by mouth every 6 (six) hours if needed for diarrhea. Active cholecalciferol (Vitamin D-3) 25 MCG (1000 UT) capsule Take 2 capsules by mouth in the morning. Active Lidocaine-[place] melody, Perianal, 3-0.5 % cream if needed 4 Active latanoprost (Xalatan) 0.005 % ophthalmic solution INSTILL 1 DROP IN BOTH EYES EVERY EVENING 4 Active albuterol HFA 90 mcg/act inhalerIndicati ons:Acute cough,Asthma, unspecified asthma severity, unspecified whether complicated, unspecified whether persistent (CMS/HCC),Restr ictive lung disease,Chest tightness Inhale 2 puffs every 4 (four) hours if needed for wheezing or shortness of breath (cough) for up to 10 days 18 g 4 Active albuterol (2.5 MG/3ML) 0.083% nebulizer solutionIndicat ions:Acute cough,Restricti ve lung disease,Chest tightness Take 3 mL (2.5 mg) by nebulization every 4 (four) hours if needed for wheezing 75 mL 4 Active levothyroxine (Synthroid, Levoxyl) 88 MCG tabletIndicatio ns:Hypothyroidi sm (acquired) (CMS/HCC) Take 1 tablet (88 mcg) by mouth in the morning. Take before meals. 90 tablet 3 5 Active triamcinolone (Kenalog) 0.1 % creamIndication s:Dermatitis APPLY TO THE AFFECTED AREA IN THE MORNING and AT BEDTIME FOR 10 DAYS 15 g 5 Active GLUCOSAMINE SULFATE PO Take 1,000 mg by mouth in the morning and 1,000 mg in the evening. Active dilTIAZem CD (Cardizem CD) 120 MG 24 hr capsule Take 120 mg by mouth Daily 4 Active acetaminophen (Tylenol) 500 MG tablet Take 500 mg by mouth every 6 (six) hours if needed Active omeprazole (PriLOSEC) [address] capsule Take 20 mg by mouth in the morning. 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 Postmenopausal atrophic vaginitis 09/19/2022 Tricuspid valve insufficiency 09/19/2022 Vitamin D deficiency 09/19/2022 Neoplasm of uncertain behavior of brain, 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 Will send urine for culture and check CT Urogram 12/30/23: CT negative. No further episodes of gross hematuria. She has never smoked. Mild reactive airways disease 09/19/2022 10/28/2022 Muscle contraction headache 09/19/2022 06/01/2023 Neoplasm of brain 09/19/2022 10/28/2022 Autoimmune disease 09/19/2022 3 Other specified disorders in volving the immune mechanism, not elsewhere classified 09/19/2022 10/28/2022 Pulmonary HTN 09/19/2022 10/28/2022 Restrictive lung disease 09/19/2022 Calculus of kidney 10/13/2017 5 Overview (06/01/2023): passed 7 mm left renal stone 10/19: Left flank pain. SHe had a ct of the chest yesterday at [place]. We reviewed that report which dated there was limited imaging of her abdomen but no suspicious findings. 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 SOB (shortness of breath) 03/04/2016 Edema 08/18/2012 04/21/2024 Iron deficiency anemia 07/06/201204/21 Pleural effusion 07/06/2012 04/21/2024 Encounters Date Type Department Care Team Description 09/30/2024 9:45 AM EDT Office Visit [facility] [address] [place] [address] Ghulam Thrasher, DO Postmenopausal atrophic vaginitis; Breast cancer screening by mammogram 09/30/2024 Travel 09/22/2024 External Result Encounter [facility] External Department Unsolicited Ghulam Thrasher, DO 08/29/2024 Telephone [facility] [address] [place] [address] Ghulam Thrasher, DO 08/22/2024 8:00 AM EDT Office Visit [facility] [address] [place] [phone] Kait Real MD Hypothyroidism (acquired) (CMS/HCC) (Primary Dx); Pulmonary hypertension, unspecified (CMS/HCC); Pulmonary fibrosis, unspecified (CMS/HCC); Neoplasm of uncertain behavior of brain, supratentorial (CMS/HCC); Dermatitis 08/22/2024 Refill [facility] [address] [place] [phone] Kait Real MD Dermatitis 08/22/2024 Bamboo flowsheet [facility] [address] [place] [phone] Kait Real MD 08/22/2024 Travel 08/15/2024 Travel from Last 3 Months Immunizations Immunization Administration Dates Next Due Pneumococcal Polysaccharide PPSV23 03/13/2021, Zoster, Recombinant 03/14/2022,11/26/2021 Zoster, live 01/11/2015 Family History Medical History Relation Name Comments Autoimmune disease Father Billy Galvin CIPD Cancer Father Billy Galvin Colon cancer Father Billy Galvin 2020 Diabetes Father Billy Galvin Heart disease Mother Amalia Galvin Kidney disease Mother Amalia Galvin Stroke Mother Amalia Galvin No Known Problems Sister 2 sisters Melanoma Neg Hx Relation Name Status Comments Father Billy Galvin Mother Amalia Galvin Sister Social History Tobacco Use Types Packs/Day Years Used Date Smoking Tobacco: Never Passive Smoke Exposure: Past Smokeless Tobacco: Never Tobacco Cessation:Counseling Given: Not Answered Comments:none Alcohol Use Standard Drinks/Week Comments Yes [...] week 04/14/2024 How often do you attend [facility] or jehovah's witness services? More than 4 times per year 04/14/2024 Do you belong to any clubs o r organizations such as congregational groups, unions, fraternal or athletic groups, or [...] Recorded Patient Health Questionnaire-2 Score 0 09/30/2024 [facility] - Occupational Stress Questionnaire Answer Date Recorded [...] place to sleep or slept in a long term (including now)? No 11/12/2022 Housing Stability Vital Sign Answer Pepito e Recorded In the last 12 months, was t here a time when you were not able to pay the mortgage or rent on time? No 04/14/2024 In the past 12 months, how m any times have you moved where you were living? 0 04/14/2024 At any time in the past 12 m [facility], were you homeless or living in a long term (including now)? No 04/14/2024 Comments No Sex and Gender Information Value Date Recorded Sex Assigned at Female 09/16/2022 11:34 AM EDT Legal Sex Female 7:07 PM EDT Gender Identity Female 09/16/2022 11:34 AM EDT Sexual Orientation Not on file Last Filed Vital Signs Vital Sign Reading Time Taken Comments Blood Pressure 128/68 09/30/2024 9:50 AM EDT Pulse 80 04/21/2024 10:34 AM EST Temperature 36.5 C (97.7 F) 04/15/2024 9:58 AM EST Respiratory Rate 14 08/06/2023 1:34 PM EDT Oxygen Saturation 99% 04/15/2024 9:58 AM EST Inhaled Oxygen Concentration - - Weight 60.3 kg (133 lb) 09/30/2024 9:50 AM EDT Height 156.2 cm (5' 1.5 ) 09/30/2024 9:50 AM EDT Body Mass Index 24.72 09/30/2024 9:50 AM EDT Plan of Treatment Upcoming Encounters Date Type Department Care Team (Late st Contact Info) Description 10/06/2025 9:45 AM EDT Office Visit [facility] [address] [facility] [address] [place] [phone] Ghulam Thrasher, [address] [facility] [address] [place] [address] Health Maintenance Due Date Last Done Comments CT Colonography 1960 FIT-DNA 1960 FIT 1960 FOBT 1960 Sigmoidoscopy 1960 Pneumococcal Vaccine: 65+ Ye ars (2 of 2 - PCV) 03/13/2022 03/13/2021, 04/20/2012 Influenza Vaccine (Season Ended) 2025 Mammogram 09/22/2025 09/22/2024, 09/01, 09/01/2022, Additional history exists Colonoscopy 07/30/2026 07/30/2016 Colorectal Cancer Screening 07/30/2026 Pap Smear Discontinued 09/23/2022 Cervical Cancer Screening Discontinued HPV/Cotest Discontinued 09/29/2023 Procedures Procedure Name Priority Date/Time Associated Diagnosis Comments BI MAMMOGRAM SCREENING TOMOSYNTHESIS BILATERAL 09/22/2024 2:15 PM EDT THINPREP IMAGING PAP W/REFL HPV MRNA E6/E7 Routine 09/29/2023 11:02 AM EDT Encounter for Papanicolaou smear of vagina THINPREP TIS PAP Routine 09/23/2022 10:1 1 AM EDT COLONOSCOPY Routine 07/30/2016 12:00 PM EDT from Last 3 Months or Most Recently Relevant to Health Maintenance Results * Bilateral screening mammogram with tomosynthesis (09/22/2024 2:15 PM EDT) Anatomical Region Laterality Modality Breast Bilateral Mammography 09/22/2024 2:15 PM EDT Impressions 09/22/2024 2:22 PM EDT NO MAMMOGRAPHIC EVIDENCE OF MALIGNANCY. ROUTINE FOLLOW-UP IS RECOMMENDED IN ONE YEAR. RESULT CODE: 2 Benign Findings(s) DENSITY CODE: 3 (approximately 51-75% glandular) The breasts are heterogeneously dense, which may obscure small masses. FOLLOW UP: 1YR The false-negative rate of mammography is approximately 10-percent. Management of a palpable abnormality must be based on clinical grounds. Patient was entered into a reminder system with a target due date for the next mammogram. Impression dictated by: Harshal Hauser M.D. 09/22/2024 2:20 PM [facility]ictation [facility] Dictated By: Harshal Hauser II, MD 09/22/241414 Signed By: <Electronically signed by Harshal Hauser II, MD in OV> 09/22/24 1420 Narrative 09/22/2024 2:22 PM EDT [facility] [address] [place], [place] [id number] Mammography Report Signed Patient: Valerie Yee MR#: [id number] : 1960 Acct:[id number] Age/Sex: 64 / F Adm Date: 09/22/24 Loc: [place] Room: Type: REG CLI Attending Dr: Ghulam Thrasher DO Ordering Provider: Ghulam Thrasher DO Date of Service: 09/22/24 Procedure(s): MM screening mammo BI w/CAD Accession Number(s): ([id number]) MM/MM screening mammo BI w/CAD: SCREENING Copies to: MD Ghulam Shi, CLINICAL DATA: Screening for malignancy. BILATERAL SCREENING MAMMOGRAMS - FULL FIELD DIGITAL WITH TOMOSYNTHESIS AND CAD Tomosynthesis craniocaudal and mediolateral oblique views of both breasts were obtained using low- dose digital technique. Comparison is made to prior studies from 09/19/2023, 08/30/2022, and 08/03/2021. This examination was reviewed with the aid of CAD. The breast parenchyma is heterogeneously dense. Benign-appearing lymph nodes are noted along the chest wall. Benign-appearing calcifications are present. There are no dominant masses, typically malignant calcifications or architectural distortion. There has been no significant interval change. MM/MM screening mammo BI w/CAD Procedure Note Harshal Hauser MD - 09/22/2024 [facility] THE [address] [place] [address] Mammography Report Signed Patient: Valerie Yee JMR#: [id number] : 9Acct:[id number] Age/Sex: 64 / FAdm Date: 09/22/24 Loc: [place] Room:Type: REG CLI Attending Dr: Ghulam Thrasher DO Ordering Provider: Ghulam Thrasher DO Date of Service: 09/22/24 Procedure(s): MM screening mammo BI w/CAD Accession Number(s): ([id number]) MM/MM screening mammo BI w/CAD:SCREENING Copies to: MD Ghulam Shi, CLINICAL DATA: Screening for malignancy. BILATERAL SCREENING MAMMOGRAMS - FULL FIELD DIGITAL WITH TOMOSYNTHESIS ANDCAD Tomosynthesis craniocaudal and mediolateral oblique views of both breastswere obtained using low- dose digital technique. Comparison is made to prior studies from09/19/2023, 08/30/2022, and 08/03/2021. This examination was reviewed with the aid of CAD. The breast parenchyma is heterogeneously dense. Benign-appearing lymphnodes are noted along the chest wall. Benign-appearing calcifications are present. There are nodominant masses, typically malignant calcifications or architectural distortion. There has been nosignificant interval change. MM/MM screening mammo BI w/CAD IMPRESSION: NO MAMMOGRAPHIC EVIDENCE OF MALIGNANCY. ROUTINE FOLLOW-UP IS RECOMMENDED IN ONE YEAR. RESULT CODE: 2 Benign Findings(s) DENSITY CODE: 3 (approximately 51-75% glandular) The breasts areheterogeneously dense, which may obscure small masses. FOLLOW UP: 1YR The false-negative rate of mammography is approximately 10-percent. Management of a palpable abnormality must be based on clinical grounds. Patient was entered into a reminder system with a target due date for thenext mammogram. Impression dictated by: Harshal Hauser M.D. 09/22/2024 2:20 PM Dictation Location: [facility] Dictated By: Harshal Hauser II, MD 09/22/24 1415 Signed By: <Electronically signed by Harshal Hauser II, MD inOV> 09/22/24 1420 Ghulam Thrasher DO IMG BI PROCEDURES Final Resu lt * THINPREP IMAGING PAP W/REFL HPV MRNA E6/E7 (09/29/2023 11:02 AM EDT) CLINICAL INFORMATION [facility] Comment:None given LMP [facility] Comment:SAV BSO 2008 PREV. PAP [facility] Comment:NEG PREV. BX [facility] Comment:NONE GIVEN SOURCE [facility] Comment:None given STATEMENT OF ADEQUACY [facility] Comment:SATISFACTORY FOR ALISIA LUATION INTERPRETATION/RESUL T [facility] Comment: Cytology Results: Negative for intraepithelial lesion or malignancy. COMMENT [facility] Comment: This Pap test has been evaluated with computer assisted technology. NICKER AND BREAKER [facility] Comment: NNO, CT(ASCP) CT screening location: [place] [address]. (ALWAYS MESSAGE) [facility] Comment: EXPLANATORY NOTE: The Pap is a screening test for cervical cancer. It is not a diagnostic test and is subject to false negative and false positive results. It is most reliable when a satisfactory sample, regularly obtained, is submitted with relevant clinical findings and history, and when the Pap result is evaluated along with historic and current clinical information. Swab Vaginal structure / Unknown 09/29/2023 11:02 AM EDT 09/30/2023 2:44 AM EDT Narrative Resulting Agency Comment Performing Organization Information Site ID: [id number] Name: [facility] Address: [address] [place] [address], [address] [place] [phone] Director: Chalino Mondragon MD Ghulam Thrasher DO LAB CYTOLOGY ORDERABLES Kristi garza Result [facility] * THINPREP TIS PAP (09/23/2022 10:11 AM EDT) REPORT STATUS CANCELED [facility] Comment:Result canceled by t he ancillary. CLINICAL INFORMATION None given [facility] LMP NONE GIVEN [facility] PREV. PAP NONE GIVEN [facility] PREV. BX NONE GIVEN [facility] SOURCE None given [facility] STATEMENT OF ADEQUACY SATISFACTORY FOR EVALUATION [facility] GENERAL CATEGORIZATION CANCELED [facility] Comment:Result canceled by t he ancillary. INTERPRETATION/RESU LT [facility] Comment: Negative for intraepithelial lesion or malignancy. Atrophic pattern; predominantly parabasal cells INFECTION CANCELED [facility] Comment:Result canceled by t he ancillary. COMMENT This Pap test has been evaluated with computer assisted technology. [facility] NICKER AND BREAKER [facility] Comment: ASD, CT(ASCP) screening location: [place] [address]. REVIEW NICKER AND BREAKER [facility] Comment: [facility], CT(ASCP) CT screening location: [place] [address]. PATHOLOGIST CANCELED [facility] Comment:Result canceled by t he ancillary. (ALWAYS MESSAGE) [facility] Comment: EXPLANATORY NOTE: The Pap is a screening test for cervical cancer. It is not a diagnostic test and is subject to false negative and false positive results. It is most reliable when a satisfactory sample, regularly obtained, is submitted with relevant clinical findings and history, and when the Pap result is evaluated along with historic and current clinical information. 09/23/2022 10:1 1 AM EDT 09/24/2022 3:41 AM EDT Narrative Resulting Agency Comment Performing Organization Information Site ID: [id number] Name: [employer] [facility] Address: [address] [place] [address], [address] [place] [phone] Director: Chalino Mondragon MD Ghulam Thrasher DO LAB BLOOD ORDERABLES Final R esult [facility] * Colonoscopy (07/30/2016 12:00 PM EDT) Anatomical Region Laterality Modality Endoscopy 07/30/2016 12:0 0 PM EDT Narrative 07/30/2016 12:00 PM EDT PERFORMED AT [facility] LOCATION:[id number] Normal Procedure Note CONVERSION, GENERIC - 09/18/2022 PERFORMED AT [facility] LOCATION:[id number] Normal Kait Real MD ENDOSCOPY PROCEDURE ORDERABLE S Final Result from Last 3 Months or Most Recently Relevant to Health Maintenance Insurance [facility] MEDICARE Care Teams Enamel Machine Operator Relationship Specialty Start Date End Date Kait Real MD PCP - General 09/16/22 Kait Real MD PCP - ACO Reach 06/10/24
--- OUTSIDE RECORDS SUMMARY | 2024-10-10 09:39 | XMS_ITS | Referral Summary ---
Author Organization [facility] Address [address] [place] [address] Care Team Providers Care Supervisor Keymodule Assembly Name Role Phone Kait Real MD Primary Care Provider [phone] Encounters Date Type Department Care Team Description 08/01/2024 9:00 AM EDT Office Visit 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
--- OUTSIDE RECORDS SUMMARY | 2024-10-10 09:39 | XMS_ITS | Encounter Summary ---
Author Organization [facility] Address [address] [place] [address] Care Team Providers Care Gaming Worker Name Role Phone Kait Real MD Primary Care Provider [phone] Source Comments In the event this information is protected by the Federal Confidentiality of Alcohol and Drug AbusePatient Records regulations: The Federal rules restrict any use of the information to criminally investigate or prosecute any alcohol or drug abuse patient.[facility] Encounter Details Date Type Department Care Team (Late st Contact Info) Description 10/21/2021 [facility] [address] [place] [id number] Provider, [facility] upcoming Mri and VV with Dr Weber Social History Tobacco Use Types Packs/Day Years [...] N ot on file 04/11/2020 Data from: https://www.neighborhoodatlas.medicine.[facility].edu/. Last address used for calculation Not on file 04/11/2020 Comments No Sex and Gender Information Value Date Recorded Sex Assigned at Female 02/07/2019 4:53 PM EDT Legal Sex Female 2:21 PM EDT Gender Identity Female 02/07/2019 4:53 PM EDT Sexual Orientation Straight 02/07/2019 4: 53 PM EDT documented as of this encounter Functional Status * Are you deaf or do you have serious difficulty hearing? Answer Date of Assessment Author No 01/05/2014 9:41 AM EDT Olive Duarte Ma * Are you blind or do you have serious difficulty seeing, even when wearing glasses? Answer Date of Assessment Author Yes 01/05/2014 9:41 AM EDT Olive Duarte Ma * Do you have serious difficulty walking or climbing stairs? Answer Date of Assessment Author No 01/05/2014 9:41 AM EDT Olive Duarte Ma * Do you have difficulty dressing or bathing? Answer Date of Assessment Author No 01/05/2014 9:41 AM EDT Olive Duarte Ma * Because of a physical, mental, or [...] on filedocumented in this encounter Care Teams Gaming Worker Relationship Specialty Start Date End Date Kait Real MD PCP - General Family Medicine 11/22/13 documented as of this encounter
--- OUTSIDE RECORDS SUMMARY | 2024-10-10 09:39 | XMS_ITS | Encounter Summary ---
Author Organization [facility] Address [address] [place] [address] Care Team Providers Care Elastic Cutter Name Role Phone Kait Real MD Primary Care Provider [phone] Kait Real MD Unavailable [phone] Encounter Details Date Type Department Care Team (Latest Contact Info) Description 09/30/2024 Travel Social History Tobacco Use Types Packs/Day [...] week 04/14/2024 How often do you attend chur or buddhist services? More than 4 times per year 04/14/2024 Do you belong to any clubs o r organizations such as yarsanism groups, unions, fraternal or athletic groups, or [...] Recorded Patient Health Questionnaire-2 Score 0 09/30/2024 [facility] - Occupational Stress Questionnaire Answer Date Recorded [...] place to sleep or slept in a jail (including now)? No 11/12/2022 Housing Stability Vital Sign Answer Pepito e Recorded In the last 12 months, was t here a time when you were not able to pay the mortgage or rent on time? No 04/14/2024 In the past 12 months, how m any times have you moved where you were living? 0 04/14/2024 At any time in the past [address] [facility], were you homeless or living in a jail (including now)? No 04/14/2024 Comments No Sex and Gender Information Value Date Recorded Sex Assigned at Female 09/16/2022 11:34 AM EDT Legal Sex Female 7:07 PM EDT Gender Identity Female 09/16/2022 11:34 AM EDT Sexual Orientation Not on file documented as of this encounter Functional Status * Audit-C Score [...] on one occasion? Never 09/30/2024 9:52 AM EDT Marianna Ochoa MA * Over the past 2 weeks, how often have you been bothered by any of the following problems? Question Answer Date of Assessment Author Little interest or pleasure in doing things Not at all 09/30/2024 9:52 AM EDT Marianna Ochoa MA Feeling down, depressed, or hopeless Not at all 09/30/2024 9:52 AM EDT Marianna Ochoa MA Patient Health Questionnaire -2 Score 0 09/30/2024 9:52 AM EDT Marianna Ochoa MA documented as of this encounter Plan of Treatment Upcoming Encounters Date Type Department Care Team (Late st Contact Info) Description 10/06/2025 9:45 AM EDT Office Visit [facility] [address] [facility] [address] [place] [phone] Ghulam Thrasher, DO [address] [facility] [address] [place] [address] documented as of this encounter Visit Diagnoses Not on filedocumented in this encounter Additional Health Concerns Assessment Noted Time PHQ-9 Depression Total Score: 5 11/14/19 23 10:00 AM EDT documented as of this encounter Care Teams Elastic Cutter Relationship Specialty Start Date End Date Kait Real MD PCP - General 09/16/22 Kait Real MD PCP - ACO Reach 06/10/24 documented as of this encounter
--- OUTSIDE RECORDS SUMMARY | 2024-10-10 09:39 | XMS_ITS | Encounter Summary ---
Author Organization [facility] Address [address] [place] [address] Care Team Providers Care Jigger Artisan Name Role Phone Kait Real MD Primary Care Provider [phone] Kait Real MD Unavailable [phone] Encounter Details Date Type Department Care Team (Late Contact Info) Description 09/16/2022 Abstract [facility] OB [address] [place] [address] Ghulam Thrasher, DO [address] [place] [address] Social History Tobacco Use Types Packs/Day Years Used Date Smoking Tobacco: Never Smokeless Tobacco: Never Alcohol Use Standard Drinks/Week Comments Yes 2 (1 standard drink = 0.6 oz pure alcohol) caffeine intake: 2-3 cups per day coffee and tea Comments Unknown Sex and Gender Information Value Date Recorded Sex Assigned at Female 09/16/2022 11:34 AM EDT Legal Sex Female 7:07 PM EDT Gender Identity Female 09/16/2022 11:34 AM EDT Sexual Orientation Not on file documented as of this encounter Plan of Treatment Upcoming Encounters Date Type Department Care Team ([facility] Contact Info) Description 10/06/2025 9:45 AM EDT Office Visit [facility] OB [address] [place] [address] Ghulam Thrasher, DO [address] [facility] [address] [place] [address] documented as of this encounter Visit Diagnoses Not on filedocumented in this encounter Care Teams Jigger Artisan Relationship Specialty Start Date End Date Kait Real MD PCP - General 09/16/22 Kait Real MD PCP - ACO Reach 06/10/24 documented as of this encounter
--- OUTSIDE RECORDS SUMMARY | 2024-10-10 09:39 | XMS_ITS | Encounter Summary ---
Author Organization [facility] Address [address] [place] [address] Care Team Providers Care Microstrategy Developer Name Role Phone Kait Real MD Primary Care Provider [phone] Source Comments In the event this information is protected by the Federal Confidentiality of Alcohol and Drug AbusePatient Records regulations: The Federal rules restrict any use of the information to criminally investigate or prosecute any alcohol or drug abuse patient.[facility] Encounter Details Date Type Department Care Team (Late st Contact Info) Description 07/26/2023 [place] [address] Provider, [facility] Medicare Coverage of Physical Exams Social History Tobacco Use Types Packs/Day Years [...] N ot on file 04/11/2020 Data from: https://www.neighborhoodatlas.medicine.[facility].edu/. Last address used for calculation Not [...] on filedocumented in this encounter Care Teams Microstrategy Developer Relationship Specialty Start Date End Date Kait Real MD PCP - General Family Medicine 11/22/13 documented as of this encounter
--- OUTSIDE RECORDS SUMMARY | 2024-10-10 09:39 | XMS_ITS | Encounter Summary ---
Author Organization [employer] [facility] Address [id number] [address] [place] [address] Care Team Providers Care Clinical Informatics Physician Name Role Phone Kait Real MD Primary Care Provider [phone] Encounter Details Date Type Department Care Team (Late st Contact Info) Description 09/13/2024 Telephone [facility] [address] [place] [address] Augusta Hernández RMA Social History Tobacco Use Types Packs/Day Years [...] encounter Miscellaneous Notes * Telephone Encounter - YOSEPH Maharaj - 09/13/2024 2:34 PM EDT Selam called into the office to reschedule her surgery from 09/15/24 to 10/13/24 - she is having transportation issues. The surgery is beyond 30 day prior to the initial office visit so another office visit was scheduled to update her H & P. documented in this encounter Plan of Treatment Upcoming Encounters Date Type Department Care Team (Latest Contact Info) Description 10/13/2024 7:30 AM EDT Hospital Encounter [facility] [address] [place] [address] Alvarez Braga, DO [address] [place], [place] [id number] 10/13/2024 7:30 AM EDT Anesthesia Event [facility] [address] [place] [address] Faraz Hadley, DO [address] [place] [address] 10/13/2024 7:30 AM EDT - 10/13/2024 8:15 AM EDT Surgery [facility] [address] [place] [address] Alvarez Braga, DO [address] [place], [place] [id number] ESOPHAGOGASTRODUODENOSCOPY DIAGNOSTIC [71158 (CPT )] Scheduled Procedures Name Priority Associated [...] documented as of this encounter Care Teams Clinical Informatics Physician Relationship Specialty Start Date End Date Kait Real MD [address] [id number] PCP - General Family Medicine 10/07/17 documented as of this encounter
--- OUTSIDE RECORDS SUMMARY | 2024-10-10 09:39 | XMS_ITS | Encounter Summary ---
Author Organization [facility] Address [address] [place] [address] Care Team Providers Care Desk Manager Name Role Phone Kait Real MD Primary Care Provider [phone] Source Comments In the event this information is protected by the Federal Confidentiality of Alcohol and Drug AbusePatient Records regulations: The Federal rules restrict any use of the information to criminally investigate or prosecute any alcohol or drug abuse patient.[facility] Encounter Details Date Type Department Care Team (Late st Contact Info) Description [facility] [address] [id number] Provider, [facility] RE:F/U after MRI Social History Tobacco Use Types Packs/Day Years [...] N ot on file 04/11/2020 Data from: https://www.neighborhoodatlas.medicine.[facility].edu/. Last address used for calculation Not [...] on filedocumented in this encounter Care Teams Desk Manager Relationship Specialty Start Date End Date Kait Real MD PCP - General Family Medicine 11/22/13 documented as of this encounter
--- OUTSIDE RECORDS SUMMARY | 2024-10-10 09:39 | XMS_ITS | Encounter Summary ---
Author Organization [facility] Address [address] [place] [address] Care Team Providers Care Supervisor Rice Milling Name Role Phone Keith Archer MD Primary Care Provider [phone] Keith Archer MD Unavailable Encounter Details Date Type Department Care Team (Late st Contact Info) Description 04/13/2023 Clinisync Result Encounter [facility] External Department Unsolicited Provider, Generic External Data Social History Tobacco Use Types Packs/Day Years Used Date Smoking Tobacco: Never Passive Smoke Exposure: Past Smokeless Tobacco: Never Alcohol Use Standard Drinks/Week Comments Yes 2 (1 standard drink = 0.6 oz pure alcohol) caffeine intake: 2-3 cups per day coffee and tea Humiliation, Afraid, Rape, and Kick questionnair e [...] neighbors? More than three times a week 11/12/2022 How often do you get togethe r with friends or relatives? Three times a week 11/12/2022 How often do you attend chur ch or worship services? More than 4 times per year 11/12/2022 Do you belong to any clubs o r organizations such as confucianist groups, unions, fraternal or athletic groups, or school groups? No 11/12/2022 How often do you attend meet ings of the clubs or organizations you belong to? Never 11/12/2022 Are you , , di vorced, , never , or living with a partner? 11/12/2022 AUDIT-C Answer Date Recorded Q1: How often do you have a drink containing alc ohol? Monthly or less 11/13/2022 Q2: How many drinks containi ng alcohol do you have on a typical day when you are drinking? 1 or 2 11/13/2022 Q3: How often do you have si x or more drinks on one occasion? Never 11/13/2022 Overall Financial Resource Strain (CARDIA) Answe r Date Recorded How hard is it for you to pa y for the very basics like food, housing, medical care, and heating? Not hard at all 11/12/2022 PHQ-2 Answer Date Recorded Patient Health Questionnaire-2 Score 0 11/13/2022 [facility] Answer Date Recorded Do you feel stress - tense, restless, nervous, or anxious, or unable to sleep at night because your mind is troubled all the time - these days? To some extent 11/12/2022 Exercise Vital Sign Answer Date Recorde d On average, how many days pe r week do you engage in moderate to strenuous exercise (like a brisk walk)? 2 days 11/12/2022 On average, how many minutes do you engage in exercise at this level? 30 min 11/12/2022 Hunger Vital Sign Answer Date Recorded Within the past 12 months, y ou worried that your food would run out before you got the money to buy more. Never true 07/12/20 23 Within the past 12 months, t he food you bought just didn't last and you didn't have money to get more. Never true 11/12/2022 PRAPARE - Transportation Answer Date Re corded In the past 12 months, has l ack of transportation kept you from medical appointments or from getting medications? No 11/01 In the past 12 months, has l ack of transportation kept you from meetings, work, or from getting things needed for daily living? No 11/12/2022 Housing Stability Vital Sign Answer [...] place to sleep or slept in a senior living (including now)? No 11/12/2022 Comments Unknown Sex and Gender Information Value Date Recorded Sex Assigned at Female 09/16/2022 11:34 AM EDT Legal Sex Female 7:07 PM EDT Gender Identity Female 09/16/2022 11:34 AM EDT Sexual Orientation Not on file documented as of this encounter Plan of Treatment Upcoming Encounters Date Type Department Care Team (Late st Contact Info) Description 10/06/2025 9:45 AM EDT Office Visit [facility] [address] [facility] [address] [place] [address] Ghulam Thrasher, DO [address] [facility] [address] [place] [address] documented as of this encounter Procedures Procedure Name Priority Date/Time Associated Diagnosis Comments NM QUAN PERF SPECT REST STR 04/13/2023 3:04 PM EST documented in this encounter Results * NM QUAN PERF SPECT REST STR (04/13/2023 3:04 PM EST) Anatomical Region Laterality Modality Other 04/13/2023 3:04 PM EST Narrative 04/13/2023 3:05 PM EST The [address] [address] Nuclear Medicine Report Signed Patient: VALERIE YEE MR#: [id number] : 1960 Acct:[id number] Age/Sex: 62 / F ADM Date: 04/13/23 Loc: [place] Attending Dr: Grabiel Mares NP Ordering Physician: Grabiel Mares NP Date of Service: 04/13/23 Procedure(s): NM quan perf SPECT rest str Accession Number(s): [id number] cc: KEITH ARCHER ; Grabiel Mares NP Patient Name: VALERIE YEE MR#: [id number] : 1960 Exam Date: 04/13/2023 Ordering Doctor: MRS. Grabiel Mares NP RADIOLOGY REPORT PROCEDURE: NM QUAN PERF SPECT REST STR COMPARISON: None. INDICATIONS: CHEST PAIN, CORONARY ARTERY DISEASE TECHNIQUE: Exam Description: Stress/Rest one day protocol gated SPECT Rest Imagin.0 mCi Tc-99m Cardiolite IV on 04/13/2023 Stress Imaging 30.3 mCi Tc-99m Cardiolite IV on 04/13/2023 Exercise Protocol: Naren Heart Rate (bpm): Rest: 65 Max: 157 PMHR: 100 Blood Pressure: Rest: 124/68 Max: 176/80 Exercise Time: Minutes: 5 Seconds: 45 Stage Reached: Stage: 2 Mets 7.0 Symptoms: Rest and peak stress ECG findings were pending and the exercise portion of the study was pending per attending physician Dr. CUENCA . For more details please see separate cardiac stress test report. FINDINGS: QUALITY OF STUDY: Good. PERFUSION DEFECT: None. LOCATION: N/A SIZE: N/A. SEVERITY: N/A. TYPE: N/A. WALL MOTION: Normal. LV SIZE: Normal. 49 mL. TID / TCD: None; 0.8 LVEF: Normal. Calculated EF 91%. SUMMARY: Myocardial perfusion imaging study is NORMAL. CONCLUSION: 1. Normal myocardial perfusion scan, no reversible ischemia 2. Pending exercise test results Dictated by: Sabino Chambers MD on 04/13/2023 at 14:35 Approved by: Sabino Chambers MD on 04/13/2023 at 15:04 Dictated By: Sabino Chambers M.D. Signed By: 04/13/23 1505 DD/ 1504 TD/TT: Jewelry Estimator: Procedure Note Radiology, Radiologist, - 04/13/[address] [address] Nuclear Medicine Report Signed Patient: VALERIE YEE JMR#: [id number] : 9Acct:[id number] Age/Sex: 62 / FADM Date: 04/13/23 Loc: [place] Attending Dr: Grabiel Mares NP Ordering Physician: Grabiel Mares NP Date of Service: 04/13/23 Procedure(s): NM quan perf SPECT rest str Accession Number(s): [id number] cc: KEITH ARCHER ; Grabiel Mares NP Patient Name: VALERIE YEE MR#: [id number] : 1960 Exam Date: 04/13/2023 Ordering Doctor: MRS. Grabiel Mares NP RADIOLOGY REPORT PROCEDURE: NM QUAN PERF SPECT REST STR COMPARISON: None. INDICATIONS: CHEST PAIN, CORONARY ARTERY DISEASE TECHNIQUE: Exam Description: Stress/Rest one day protocol gated SPECT Rest Imagin.0 mCi Tc-99m Cardiolite IV on 04/13/2023 Stress Imaging 30.3 mCi Tc-99m Cardiolite IV on 04/13/2023 Exercise Protocol: Naren Heart Rate (bpm): Rest: 65 Max: 157 PMHR: 100 Blood Pressure: Rest: 124/68 Max: 176/80 Exercise Time: Minutes: 5 Seconds: 45 Stage Reached: Stage: 2 Mets 7.0 Symptoms: Rest and peak stress ECG findings were pending and the exercise portion ofthe study was pending per attending physician Dr. CUENCA . For more detailsplease see separate cardiac stress test report. FINDINGS: QUALITY OF STUDY: Good. PERFUSION DEFECT: None. LOCATION: N/A SIZE: N/A. SEVERITY: N/A. TYPE: N/A. WALL MOTION: Normal. LV SIZE: Normal. 49 mL. TID / TCD: None; 0.8 LVEF: Normal. Calculated EF 91%. SUMMARY: Myocardial perfusion imaging study is NORMAL. CONCLUSION: 1. Normal myocardial perfusion scan, no reversible ischemia 2. Pending exercise test results Dictated by: Sabino Chambers MD on 04/13/2023 at 14:35 Approved by: Sabino Chambers MD on 04/13/2023 at 15:04 Dictated By: Sabino Chambers M.D. Signed By:04/13/23 1505 DD/ 1504 TD/TT: Jewelry Estimator: us Generic External Data Provider [facility] Final Result documented in this encounter Visit Diagnoses Not on filedocumented in this encounter Additional Health Concerns Assessment Noted Time PHQ-9 Depression Total Score: 5 11/14/19 23 10:00 AM EDT documented as of this encounter Care Teams Supervisor Rice Milling Relationship Specialty Start Date End Date Keith Archer MD PCP - General 09/16/22 Keith Archer MD PCP - ACO Reach 06/10/24 documented as of this encounter
--- OUTSIDE RECORDS SUMMARY | 2024-10-10 09:39 | XMS_ITS | Encounter Summary ---
Author Organization [facility] Address [address] [place] [address] Care Team Providers Care Repair Technician Name Role Phone Kait Real MD Primary Care Provider [phone] Source Comments In the event this information is protected by the Federal Confidentiality of Alcohol and Drug AbusePatient Records regulations: The Federal rules restrict any use of the information to criminally investigate or prosecute any alcohol or drug abuse patient.[facility] Encounter Details Date Type Department Care Team (Late st Contact Info) Description 11/21/2019 Patient Msg [facility] [address] [phone] Provider, [facility]cf recommended follow up with Dr. Weber Social History Tobacco Use Types Packs/Day Years Used Date Smoking Tobacco: Never Smokeless Tobacco: Never Alcohol Use Standard Drinks/Week Comments Yes 0 (1 standard drink = 0.6 oz pur e alcohol) socially Comments No Sex and Gender Information Value [...] have Coronavirus / COVID-19? No / Unsure 11/10/2019 10:16 AM EDT documented as of this [...] on filedocumented in this encounter Care Teams Repair Technician Relationship Specialty Start Date End Date Kait Real MD PCP - General Family Medicine 11/22/13 documented as of this encounter
--- OUTSIDE RECORDS SUMMARY | 2024-10-10 09:39 | XMS_ITS | Encounter Summary ---
Author Organization [facility] Address [address] [place] [address] Care Team Providers Care Metal Work Duct Installer Name Role Phone Kait Real MD Primary Care Provider [phone] Kait Real MD Unavailable [phone] Encounter Details Date Type Department Care Team (Late st Contact Info) Description 09/22/2024 External Result Encounter [facility] External Department Unsolicited Ghulam Thrasher, DO [address] [place] [address] Social History Tobacco Use Types Packs/Day Years [...] How often do you attend chur or anglican services? More than 4 times per year 04/14/2024 Do you belong to any clubs o r organizations such as buddhist groups, unions, fraternal or athletic groups, or school groups? No 04/14/2024 How often do you attend meet ings of the clubs or organizations you belong to? Never 04/14/2024 Are you , , di vorced, , never , or living with a partner? 04/14/2024 AUDIT-C Answer Date Recorded Q1: How often do you have a drink containing alc ohol? Monthly or less 04/14/2024 Q2: How many drinks containi ng alcohol do you have on a typical day when you are drinking? 1 or 2 04/14/2024 Q3: How often do you have si x or more drinks on one occasion? Never 04/14/2024 Overall Financial Resource Strain (CARDIA) Answe r Date Recorded How hard is it for you to pa y for the very basics like food, housing, medical care, and heating? Not hard at all 04/14/2024 PHQ-2 Answer Date Recorded Patient Health Questionnaire-2 Score 0 04/14/2024 [facility] [place] of Occupat ional Health - Occupational Stress [...] a senior living (including now)? No 11/12/2022 Housing Stability Vital Sign Answer Pepito e Recorded In the last 12 months, was t here a time when you were not able to pay the mortgage or rent on time? No 04/14/2024 In the past 12 months, how m any times have you moved where you were living? 0 04/14/2024 At any time in the past 12 m [facility], were you homeless or living in a senior living (including now)? No 04/14/2024 Comments No Sex [...] OB [address] [place] [address] Ghulam Thrasher, [address] [place] [address] documented as of this encounter Procedures Procedure Name Priority Date/Time Associated Diagnosis Comments BI MAMMOGRAM SCREENING TOMOSYNTHESIS BILATERAL 09/22/2024 2:15 PM EDT documented in this encounter Results * Bilateral screening mammogram with tomosynthesis [...] Hauser M.D. 09/22/2024 2:20 PM Dictation Location: [facility] Dictated By: Harshal Hauser II, MD 09/22/24 1415 Signed By: <Electronically signed by Harshal Hauser II, MD in OV> 09/22/24 1420 Narrative 09/22/2024 2:22 PM EDT [facility] [address] [place] [address] [address] [place] [address] Mammography Report Signed Patient: Valerie Yee MR#: [id number] : 1960 Acct:[id number] Age/Sex: 64 / F Adm Date: 09/22/24 Loc: [place] Room: Type: [facility] Attending Dr: Ghulam Thrasher DO Ordering Provider: Ghulam Thrasher DO Date of Service: 09/22/24 Procedure(s): MM screening mammo BI w/CAD Accession Number(s): ([id number]) MM/MM screening mammo BI w/CAD: SCREENING Copies to: MD Ghulam Shi DO CLINICAL DATA: Screening for malignancy. BILATERAL SCREENING [...] Procedure Note Harshal Hauser MD - 09/22/2024 [place] [address] Mammography Report Signed Patient: Valerie Yee JMR#: [id number] : 9Acct:[id number] Age/Sex: 64 / FAdm Date: 09/22/24 Loc: [place] Room:Type: [facility] Attending Dr: Ghulam Thrasher DO Ordering Provider: Ghulam Thrasher DO Date of Service: 09/22/24 Procedure(s): MM screening mammo BI w/CAD Accession Number(s): ([id number]) MM/MM screening mammo BI w/CAD:SCREENING Copies to: MD Ghulam Shi DO CLINICAL DATA: Screening for malignancy. BILATERAL SCREENING [...] Hauser M.D. 09/22/2024 2:20 PM Dictation Location: [facility] Dictated By: Harshal Hauser II, MD 09/22/24 1415 Signed By: <Electronically signed by Harshal Hauser II, MD inOV> 09/22/24 1420 Ghulam Thrasher DO IMG BI PROCEDURES Final Resu lt documented in this encounter Visit Diagnoses Not on filedocumented in this encounter Additional Health Concerns Assessment Noted Time PHQ-9 Depression Total Score: 5 11/14/19 23 10:00 AM EDT documented as of this encounter Care Teams Metal Work Duct Installer Relationship Specialty Start Date End Date Kait Real MD PCP - General 09/16/22 Kait Real MD PCP - ACO Reach 06/10/24 documented as of this encounter
--- OUTSIDE RECORDS SUMMARY | 2024-10-10 09:39 | XMS_ITS | Encounter Summary ---
Author Organization [facility] Address [address] [place] [address] Care Team Providers Care Protection Analyst Name Role Phone Kait Real MD Primary Care Provider [phone] Source Comments In the event this information is protected by the Federal Confidentiality of Alcohol and Drug AbusePatient Records regulations: The Federal rules restrict any use of the information to criminally investigate or prosecute any alcohol or drug abuse patient.[facility] Encounter Details Date Type Department Care Team (Late st Contact Info) Description [facility] [address] [phone] Provider, Luis RE:Follow up after your appointment with Dr. Weber Social History Tobacco Use [...] N ot on file 04/11/2020 Data from: https://www.neighborhoodatlas.medicine.[facility].edu/. Last address used for calculation [...] or suspected to have Coronavirus / COVID-19? Unable to assess 12/17/2020 5:12 PM EDT documented as of this encounter [...] on filedocumented in this encounter Care Teams Protection Analyst Relationship Specialty Start Date End Date Addie, Kait Roberto MD PCP - General Family Medicine 11/22/13 documented as of this encounter
--- OUTSIDE RECORDS SUMMARY | 2024-10-10 09:39 | XMS_ITS | Encounter Summary ---
Author Organization [facility] Address [address] [place] [address] Care Team Providers Care Ammonia Nitrate Operator Name Role Phone Kait Real MD Primary Care Provider [phone] Kait Real MD Unavailable Encounter Details Date Type Department Care Team (Late st Contact Info) Description 11/10/2023 Orders Only [facility] [address] [place] [address] Oscar Riojas MD [address] [address] Social History Tobacco Use Types Packs/Day Years [...] 11/12/2022 How often do you attend chur or church services? More than 4 times per year 11/12/2022 Do you belong to any clubs o r organizations such as adventism groups, unions, fraternal or athletic groups, or school groups? No 11/12/2022 How often do you attend meet ings of the clubs or organizations you belong to? Never 11/12/2022 Are you , , di vorced, , never , or living with a partner? 11/12/2022 AUDIT-C Answer Date Recorded Q1: How often do you have a drink containing alc ohol? Monthly or less 09/29/2023 Q2: How many drinks containi ng alcohol do you have on a typical day when you are drinking? 1 or 2 09/29/2023 Q3: How often do you have si x or more drinks on one occasion? Never 09/29/2023 Overall Financial Resource Strain (CARDIA) Answe r Date Recorded How hard is it for you to pa y for the very basics like food, housing, medical care, and heating? Not hard at all 11/12/2022 PHQ-2 Answer Date Recorded Patient Health Questionnaire-2 Score 0 09/29/2023 [facility] Occupat ionsd Health - Occupational Stress Questionnaire Answer Date [...] the money to buy more. Never true 11/13/19 23 Within the past 12 months, t [...] place to sleep or slept in a nursing home (including now)? No 11/12/2022 Comments No Sex and Gender Information Value [...] OB [address] [place] [address] Ghulam Thrasher, DO [address] [place] [address] documented as of this encounter Procedures Procedure Name Priority Date/Time Associated Diagnosis Comments PFT COMPLETE Routine 11/04/2023 1:52 PM EDT documented in this encounter Results * Pulmonary function testing (11/04/2023 1:52 PM EDT) Anatomical Region Laterality Modality Radiographic Petra ging us Oscar Riojas MD IMG XR PROCEDURES Final Result documented in this encounter Visit Diagnoses Not on filedocumented in this encounter Additional Health Concerns Assessment Noted Time PHQ-9 Depression Total Score: 5 11/14/19 23 10:00 AM EDT documented as of this encounter Care Teams Ammonia Nitrate Operator Relationship Specialty Start Date End Date Kait Real MD PCP - General 09/16/22 Kait Real MD PCP - ACO Reach 06/10/24 documented as of this encounter
--- OUTSIDE RECORDS SUMMARY | 2024-10-10 09:39 | XMS_ITS | Clinical Summary ---
Author Organization [facility] Address [id number] [place] [address] Care Team Providers Care Tax Staff Accountant Name Role Phone Kait Real MD Primary Care Provider [phone] Allergies Active Allergy Reactions Criticality Noted Date Comments Atorvastatin Headache 04/14/2023 Codeine Vomiting 10/13/2017 Hydrocodone-Acetaminophen 09/19/2022 Other Reaction(s): dizziness, vomiting Latex Rash Low 09/19/2022 Oxycodone-Acetaminophen 09/19/2022 Other Reaction(s): dizziness, vomiting Medications PROAIR HFA 90 mcg/actuation inhaler Inhale 2 puffs every 4 (four) hours as needed. 0 8 Active loperamide (IMODIUM A-D) 2 mg tablet Take 1 tablet (2 mg total) by mouth as needed in the morning and 1 tablet (2 mg total) as needed at noon and 1 tablet (2 mg total) as needed in the evening and 1 tablet (2 mg total) as needed before bedtime for diarrhea. Active levothyroxine (SYNTHROID, LEVOTHROID) 88 MCG tablet Take 1 tablet (88 mcg total) by mouth in the morning. Active cholecalciferol , vitamin D3, 25 mcg (1,000 unit) capsule Take 2 capsules (2,000 Units total) by mouth in the morning. Active multivitamin (THERAGRAN) tablet Take 1 tablet by mouth in the morning. Active glucosamine sulfate (GLUCOSAMINE ORAL) Take 1,000 mg by mouth in the morning and at bedtime. Active sod sulf-pot chloride-mag sulf 1.479-0.188- 0.225 gram tabletIndicatio ns:Encounter for screening colonoscopy Please see instructional sheet given by physicians office. 24 tablet 5 Active albuterol (PROVENTIL,VENT TUYET) 2.5 mg /3 mL (0.083 %) nebulizer solution Inhale 3 mL (2.5 mg total) by nebulization every 4 (four) hours as needed. 4 Active latanoprost (XALATAN) 0.005 % ophthalmic solution Administer 1 drop to both eyes nightly. Active aspirin 81 mg Take 1 tablet (81 mg total) by mouth 3 (three) times a week. Active ibuprofen (ADVIL,MOTRIN) 200 mg tablet Take 1 tablet (200 mg total) by mouth every 6 (six) hours as needed for pain, fever or headaches. Active acetaminophen (TYLENOL EXTRA STRENGTH) 500 mg tablet Take 1 tablet (500 mg total) by mouth every 6 (six) hours as needed for pain or headaches. Active omeprazole (PriLOSEC) 20 mg capsuleIndicati ons:Nausea Take 1 capsule (20 mg total) by mouth in the morning. 30 capsule 1 5 Active Active Problems Problem Noted Date Diagnosed Date Gross hematuria 07/01/2023 Overview (12/30/2023): 07/01/23: Recent gross hematuria. Will send urine for culture and check CT Urogram 12/30/23: CT negative. No further episodes of gross hematuria. She has never smoked. Assessment & Plan (12/30/2023 4:42 PM EDT): As no obvious source for the blood was identified on CT, I advise that we go forward with cystoscopy. I explained the procedure to her in detail. She would like to think about it. I told her that cystoscopy is the only way to rule out bladder cancer. She understands but may still ultimately decide to declined testing. Assessment & Plan (07/01/2023 4:20 PM EST): I will notify her of the test results through [facility] but we will see her back to review the CT in detail and determine further management from there. If no obvious source for the bleeding is identified on her CT, we will need to schedule cystoscopy. Calculus of kidney 10/13/2017 Overview (12/30/2023): passed 7 mm left renal stone 10/19: Left flank pain. SHe had a ct of the chest yesterday at [place]. We reviewed that report which dated there was limited imaging of her abdomen but no suspicious findings. Plan for stone protocol CT 07/01/23: Recent gross hematuria. Will check CT 12/30/23: No stones on CT Encounters Date Type Department Care Team Description 10/06/2024 3:40 PM EDT Support Visit [facility] - Pre Admit [address] [facility] [address] 09/29/2024 9:00 AM EDT Office Visit [facility] [address] [place] [address] Rosie Dixon APRN-MYSQL DATABASE DEVELOPER Encounter for screening colonoscopy (Primary Dx); Chronic diarrhea; Family history of colon cancer in father; Nausea 09/27/2024 Travel 09/13/2024 Telephone [facility] General Surgery [address] [facility] [address] Augusta Hernández RMA 08/04/2024 9:00 AM EDT - 08/04/2024 9:45 AM EDT Surgery [facility] - Surgery [address] [place] [address] Jana Rocha MD EXTRACTION CATARACT INTRAOCULAR LENS [14696 (CPT )] 08/04/2024 8:50 AM EDT Anesthesia Event [facility] - Surgery [address] [place] [address] Sabino Cavanaugh MD 08/04/2024 6:59 AM EDT - 08/04/2024 9:55 AM EDT Hospital Encounter [facility] - Surgery [address] [facility] [address] Jana Rocha MD Discharge Disposition: Home 08/04/2024 Travel 07/12/2024 9:18 AM EDT - 07/12/2024 11:59 PM EDT Hospital Encounter [facility] - Cardiovascular [address] [place] [address] Sabino Cavanaugh MD Preop examination; Pulmonary hypertension ([facility]); Coronary artery disease, unspecified vessel or lesion type, unspecified whether angina present, unspecified whether modoc or transplanted heart Discharge Disposition: Home 07/12/2024 9:00 AM EDT Procedure visit [facility] - Pre Admit [address] [place] [address] Preop examination (Primary Dx); Pulmonary hypertension (CMS-HCC); Coronary artery disease, unspecified vessel or lesion type, unspecified whether angina present, unspecified whether modoc or transplanted heart 07/12/2024 Travel from Last 3 Months Family History Medical History Relation Name Comments [place] Daughter Autoimmune disease Father Billy Galvin Colon cancer Father Billy Galvin Diabetes Father Billy Galvin Alcohol abuse Mother [place] Galvin Arthritis Mother [place] Galvin Heart disease Mother [place] Galvin Kidney disease Mother [place] Galvin Stroke Mother [place] Galvin Colon cancer Paternal Uncle Twin Galvin No Known Problems Sister Asthma Son Cheryl Yee Relation Name Status Comments Daughter Alive Father Billy Galvin Mother [place] Galvin Paternal Uncle Twin Galvin Sister Alive Son Cheryl Yee Social History Tobacco Use Types Packs/Day Years Used Date Smoking Tobacco: Never Smokeless Tobacco: Never Tobacco Cessation:Counseling Given: Not Answered Alcohol Use Standard Drinks/Week Comments No 0 [...] on file Sexual Orientation Not on file Last Filed Vital Signs Vital Sign Reading Time Taken Comments Blood Pressure 143/60 09/29/2024 8:54 AM EDT Pulse 68 09/29/2024 8:54 AM EDT Temperature 36.5 C (97.7 F) 08/04/2024 7:20 AM EDT Respiratory Rate 14 08/04/2024 9:50 AM EDT Oxygen Saturation 96% 08/04/2024 9:50 AM EDT Inhaled Oxygen Concentration - - Weight 60.3 kg (133 lb) 10/06/2024 12:58 PM EDT Height 157.5 cm (5' 2 ) 10/06/2024 12:58 PM EDT Body Mass Index 24.33 10/06/2024 12:58 PM EDT Plan of Treatment Upcoming Encounters Date Type Department Care Team (Latest Contact Info) Description 10/13/2024 7:30 AM EDT Hospital Encounter [facility] Surgery [address] [place] [address] Alvarez Braga, DO [address] [place] [address] 10/13/2024 7:30 AM EDT Anesthesia Event [facility] Surgery [address] [place] [address] Faraz Hadley, DO [address] [facility], [place] [id number] 10/13/2024 7:30 AM EDT - 10/13/2024 8:[address] [facility] Surgery [address] [place] [id number] Omi [address], DO [address] [place] [address] ESOPHAGOGASTRODUODENOSCOPY DIAGNOSTIC [08277 (CPT )] Scheduled Procedures Name Priority Associated Diagnoses Date/Ti me ESOPHAGOGASTRODUODENOSCOPY DIAGNOSTIC Screen for colon cancer 10/13/2024 7:30 AM EDT COLONOSCOPY DIAGNOSTIC / SCREENING Screen for colon cancer 10/13/2024 7:30 AM EDT Health Maintenance Due Date Last Done Comments Depression Screening 1970 DTaP,Tdap and Td Vaccines (1 - Tdap) 1977 Fall Risk Screening 07/26/2023 Influenza Vaccine 01/02/2025 Adult BMI Screening 10/06/2025 10/06/2024 Tobacco Screening 10/06/2025 10/06/2024 Zoster (Shingles) Vaccine Completed 2021, 11/26/2021, 01/11/2015 Goals Goal Patient Goal Type Associated Problems Recent Progress Patient-Stated? Author Autogenera gurjit Goal Care Plan Autogenerated Problem No Benavidez, [employer] Implanted Type Area Wholesale Agronomist Device Identifier Shelf Expiration Date Model / Serial / Lot Lens Iol [id number] Jem [facility] [id number] - [id number] - [id number] Implanted:Qty: 1 on 08/04/2024 by Jana Rocha MD at [facility] Lens Left: Eye [employer] 02/07/2026 [id number] / [id number] / NA Procedures Procedure Name Priority Date/Time Associated Diagnosis Comments OK TRLUML DILAT AQUEOUS O/F CAN WO RETENTION DEV/ST 08/04/2024 8:48 AM EDT cataract left eye OK REMV CATARACT EXTRACAP,INSERT LENS 08/04/2024 8:48 AM EDT cataract left eye ECG 12-LEAD Routine 07/12/2024 9:31 AM EDT Preop examination Pulmonary hypertension (CMS-HCC) Coronary artery disease, unspecified vessel or lesion type, unspecified whether angina present, unspecified whether modoc or transplanted heart from Last 3 Months Results * ECG 12 lead (07/12/2024 9:31 AM EDT) 07/12/2024 9:31 AM EDT Narrative TRACEMASTERVUE - 07/12/2024 4:30 PM EDT us Sabino Cavanaugh MD ECG ORDERABLES Final Result TRACEMASTERVUE from Last 3 Months Additional Health Concerns Active Problems Noted Date Diagnosed Date Autogenerated Problem 09/13/2024 Insurance [employer] Care Teams Tax Staff Accountant Relationship Specialty Start Date End Date Kait Real MD [address] [place] [address] PCP - General Family Medicine 10/07/17
--- OUTSIDE RECORDS SUMMARY | 2024-10-10 09:39 | XMS_ITS | Encounter Summary ---
Author Organization [facility] Address [address] [place] [address] Care Team Providers Care Batter Out Name Role Phone Kait Real MD Primary Care Provider [phone] Kait Real MD Unavailable [phone] Encounter Details Date Type Department Care Team (Late st Contact Info) Description 12/03/2022 Orders Only [facility] [address] [place] [address] Devi Serrano, ELEVATOR ERECTOR HELPER [address] [place], [place] [id number] Social History Tobacco Use Types Packs/Day Years [...] How often do you attend chur or taoism services? More than 4 times per year [...] Recorded Patient Health Questionnaire-2 Score 0 11/13/2022 [facility] of Occupat ional Health - Occupational [...] a long term (including now)? No 11/12/2022 Comments Unknown Sex and Gender Information Value Date Recorded Sex Assigned at Female 09/16/2022 11:34 AM EDT Legal Sex Female 7:07 PM EDT Gender Identity Female 09/16/2022 11:34 AM EDT Sexual Orientation Not on file COVID-19 Exposure Response Date Recorded In the last 10 days, have yo u been in contact with someone who was confirmed or suspected to have Coronavirus/COVID-19? No / Unsure 11/17/2022 12:12 PM EDT documented as of this encounter Plan of Treatment Upcoming Encounters Date Type Department Care Team (Late st Contact Info) Description 10/06/2025 9:45 AM EDT Office Visit [facility] [address] [place] [address] Ghulam Thrasher, [address] [place] [address] documented as of this encounter Procedures Procedure Name Priority Date/Time Associated Diagnosis Comments STRESS TEST ONLY Routine 12/03/2022 2:03 PM EDT documented in this encounter Results * Stress test (12/03/2022 2:03 PM EDT) Anatomical Region Laterality Modality Heart Other Devi Serrano NP CV STRESS PROCEDURES Final Result documented in this encounter Visit Diagnoses Not on filedocumented in this encounter Additional Health Concerns Assessment Noted Time PHQ-9 Depression Total Score: 5 11/14/19 23 10:00 AM EDT documented as of this encounter Care Teams Batter Out Relationship Specialty Start Date End Date Kiat Real MD PCP - General 09/16/22 Kait Real MD PCP - ACO Reach 06/10/24 documented as of this encounter
--- OUTSIDE RECORDS SUMMARY | 2024-10-10 09:40 | XMS_ITS | Encounter Summary ---
Author Organization [facility] Address [address] [place] [address] Care Team Providers Care Meal Packer Name Role Phone Kait Real MD Primary Care Provider [phone] Kait Real MD Unavailable [phone] Encounter Details Date Type Department Care Team (Late st Contact Info) Description 04/21/2024 Orders Only [facility] [address] [place] [address] Unallocated, [facility] Provider, [address] [place] [address] Social History Tobacco Use Types Packs/Day Years [...] How often do you attend chur or sabianist services? More than 4 times per year 04/14/2024 Do you belong to any clubs o r organizations such as lutheran groups, unions, fraternal or athletic groups, or [...] Recorded Patient Health Questionnaire-2 Score 0 04/14/2024 [facility] of Occupat ional Health - Occupational Stress [...] place to sleep or slept in a residential (including now)? No 11/12/2022 Housing Stability Vital [...] time in the past 12 m [facility], were you homeless or living in a residential (including now)? No 04/14/2024 Comments No Sex [...] OB [address] [place] [address] Ghulam Thrasher, DO [address] [place] [address] documented as of this encounter Procedures Procedure Name Priority Date/Time Associated Diagnosis Comments MAMMOGRAM, BILATERAL, SCREEN:* Routine 09/19/2023 3:10 PM EDT documented in this encounter Results * MAMMOGRAM, BILATERAL, SCREEN:* (09/19/2023 3:10 PM EDT) Anatomical Region Laterality Modality Radiographic Petra ging us [facility] Provider Unallocated MD APONTE XR PROCEDURES F inal Result documented in this encounter Visit Diagnoses Not on filedocumented in this encounter Additional Health Concerns Assessment Noted Time PHQ-9 Depression Total Score: 5 11/14/19 23 10:00 AM EDT documented as of this encounter Care Teams Meal Packer Relationship Specialty Start Date End Date Kait Real MD PCP - General 09/16/22 Kait Real MD PCP - ACO Reach 06/10/24 documented as of this encounter
[2024-10-10 10:25] LABS: Basophils Percent Auto 0.5 % (0.2-2.0); Eosinophils Absolute Auto 0.1 10^3/uL (0.0-0.7); Eosinophils Percent Auto 1.3 % (0.9-7.0); Hemoglobin 13.9 g/dL (12.0-16.0); Immature Granulocytes Abs Auto 0.01 10^3/uL (0.00-0.03); Immature Granulocytes Pct Auto 0.1 % (0.0-0.5); Lymphocytes Absolute Auto 1.5 10^3/uL (1.2-3.8); Lymphocytes Percent Auto 19.1 % (20.5-60.0); Mean Corpuscular HGB Conc 33.1 g/dL (29.9-35.2); Mean Corpuscular Hemoglobin 29.5 pg (26.7-34.0); Mean Corpuscular Volume 89.2 fL (81.0-99.0); Mean Platelet Volume 10.7 fL (9.5-13.5); Monocytes Absolute Auto 0.4 10^3/uL (0.3-0.8); Monocytes Percent Auto 5.2 % (1.7-12.0); Neutrophils Absolute Auto 5.6 10^3/uL (1.4-6.5); Neutrophils Percent Auto 73.8 % (43.0-75.0); Platelet Count 189 10^3/uL (150-450); Red Blood Count 4.71 10^6/uL (4.20-5.40); Red Cell Distribution Width 12.7 % (11.0-15.0); White Blood Count 7.6 10^3/uL (4.0-11.0)
[2024-10-10 10:34] LABS: Erythrocyte Sedimentation Rate 8 mm/hr (<=30)
[2024-10-10 10:40] LABS: Bilirubin Urine NEGATIVE (NEGATIVE); Blood Urine NEGATIVE (NEGATIVE); Clarity Urine CLEAR (CLEAR); Color Urine LT. YELLOW (YELLOW); Glucose Urine UA NEGATIVE (NEGATIVE); Ketones Urine NEGATIVE (NEGATIVE); Leukocyte Esterase Urine NEGATIVE (NEGATIVE); Nitrite Urine NEGATIVE (NEGATIVE); Protein Urine NEGATIVE (NEG/TRACE); Specific Gravity Urine 1.015 (1.005-1.025); Urobilinogen Urine 0.2 EU/dL (0.2-1.0); pH Urine 5.5 (5.0-9.0)
[2024-10-10 10:41] LABS: Urine Microscopic Indicated NO
[2024-10-10 11:35] LABS: Alanine Aminotransferase 49 U/L (14-59); Albumin Globulin Ratio 1.1; Albumin Level 3.9 g/dL (3.4-5.0); Alkaline Phosphatase 148 U/L (46-116); Anion Gap 13.5; Aspartate Amino Transferase 33 U/L (15-37); BUN Creatinine Ratio 19.1; Bilirubin Total 0.7 mg/dL (0.2-1.0); Calcium 9.2 mg/dL (8.5-10.1); Carbon Dioxide 27.6 mmol/L (21.0-32.0); Chloride 105 mmol/L (98-107); Estimated GFR (African America >60 (>=60 mL/min/1.73m^2); Estimated GFR (Non-African Ame >60 (>=60 mL/min/1.73m^2); Globulin 3.4 g/dL; Glucose 97 mg/dL (74-106); Potassium 4.1 mmol/L (3.5-5.1); Sodium 142 mmol/L (136-145); Total Protein 7.3 g/dL (6.4-8.2)
[2024-10-11 05:07] LABS: Complement C3, Serum 160 mg/dL (82-167); Complement C4, Serum 27 mg/dL (12-38)
[2024-10-11 16:09] LABS: Complement, Total (CH50) 60 U/mL (>41)
== END 2024-10-10 09:33 | disposition home or self-care (01) ==
LOC: LAB 09:36
PROVIDERS: PCP Family Medicine; Visit Provider Registered Nurse
DX: M15.0 Primary generalized (osteo)arthritis (principal); M35.9 Systemic involvement of connective tissue, unspecified; Z79.899 Other long term (current) drug therapy
CPT/HCPCS: 36415; 80053; 81003; 85025; 85652; 86160; 86162

== ENCOUNTER 2025-01-06 08:43 | Outpatient (OUT) | payer MEDICARE, OTHER, SELFPAY ==
--- OUTSIDE RECORDS SUMMARY | 2025-01-05 14:30 | XMS_ITS | Encounter Summary ---
Author Organization [facility] Address [address] [place] [address] Care Team Providers Care Senior Applications Engineer Name Role Phone Kait Real MD Primary Care Provider [phone] Kait Real MD Unavailable [phone] Reason for Visit * Rehabilitation - Outpatient (Routine) - Authorized Specialty Diagnoses / Procedures Referred By Harmony sanchez Referred To Contact Physical Therapy Diagnoses Vertigo Procedures DC OFFICE/OUTPATIENT [facility] 60 MINUTES Devi Serrano, SEARCH ENGINE OPTIMIZATION MANAGER [address] [place] [address] Phone: tel: fax: Celine Hernandez PT Referral ID Status Reason Start Date Expiration Date Visits Requested Visits Authorized [id number] Authorized Specialty Services Required 01/05/2025 05/03/2025 20 30 Encounter Details Date Type Department Care Team (Late st Contact Info) Description 01/05/2025 2:30 PM EDT Evaluation [facility] Physical Therapy [address] [place] [address] Celine Hernandez PT Vertigo (Primary Dx) Social History Tobacco Use Types Packs/Day Years [...] week 04/14/2024 How often do you attend [facility] or sikhism services? More than 4 times per year 04/14/2024 Do you belong to any clubs o r organizations such as hindu groups, unions, fraternal or athletic groups, or [...] Recorded Patient Health Questionnaire-2 Score 0 09/30/2024 [facility] - Occupational Stress Questionnaire Answer Date Recorded [...] place to sleep or slept in a skilled nursing (including now)? No 11/12/2022 Housing Stability Vital Sign Answer Pepito e Recorded In the last 12 months, was t here a time when you were not able to pay the mortgage or rent on time? No 04/14/2024 In the past 12 months, how m any times have you moved where you were living? 0 04/14/2024 At any time in the past 12 m [facility], were you homeless or living in a skilled nursing (including now)? No 04/14/2024 Comments No Sex and Gender Information Value Date Recorded Sex Assigned at Female 09/16/2022 11:34 AM EDT Legal Sex Female 7:07 PM EDT Gender Identity Female 09/16/2022 11:34 AM EDT Sexual Orientation Not on file documented as of this encounter Progress Notes * Celine Hernandez, PT - 01/05/2025 2:30 PM EDT Images from the original note were not included. Physical Therapy Evaluation Visit Patient Name: Selam Yee Today's Date: 01/05/2025 Encounter Diagnoses Name Primary? Vertigo Visit number: 1 Timed Code Treatment Minutes: 50 minutes Total Treatment Time: 50 minutes Time In: 1430 Time Out: 1520 History: Pt states back in November she started to become very dizzy. States gradually over the course of a week she started to feel better. Pt states she does still feel dizzy at times. States for some reason she still gets really dizzy when trying to lay in bed, not as bad on couch. Pt states she is fine when she lays down but then will feel more dizzy when she wakes up. Precautions: [place] Subjective: stiff neck, left side Pain: 0/10 Objective: PT Evaluation (01/05/2025) CERVICAL CROM: limited cervical rotation noted bilateral Joint play: degrees cervical spine mobility noted with lateral glides. Palpation: moderate tenderness left UT region Special Test: Modified VBI Testing: negative bilateral Hallpike: dizziness noted right Hallpike, left Hallpike negative Roll Test: negative bilateral Treatment: Education: HEP education with demonstration, Educated on Eval Findings and POC Manual Therapy: Passive ROM, Joint mobilization, Soft Tissue Mobilization, Myofascial Release, Muscle Energy Technique, Neural Mobilization, Myofascial Cupping, Dry Needling, IASTM, and Scar mobilization as needed. Therapeutic Exercise: Strength, Endurance, Flexibility, ROM, HEP, Neural Mobilization, Power, and Core Stability as needed. Therapeutic Activity: Exercises to improve dynamic activities, functional tasks, functional mobility to return to prior activity level as needed. Neuromuscular re-education: (24 minutes) Balance Training, Muscle Facilitation, Dynamic Stability, Core Stabilization, and Blood Flow Restriction Training (BFRT) as needed. Pt performed and instructed in home program this date; written instructions and pictures issued with good pt understanding. Modalities: Heat, Ice, Electrical Stimulation, Ultrasound, Cervical Mechanical Traction, Lumbar Mechanical Traction, Iontophoresis, and Fluidotherapy as needed. Assessment: Pt is 64 y/o female with complaints of dizziness. Pt with complaints of increase sx's with right Hallpike. Bilateral Roll Testing and VBI testing are negative. Pt repositioned x 3 and issued home program; will benefit from further PT. Outcome Measure: Dizziness Handicap Inventory (DHI): Rehab Diagnosis: dizziness, limited CROM and mobility Short Term Goal: To be met in 2 weeks Goal 1: Pt to be instructed in home exercise program. Retirement Goals: To be met in 10 weeks Goal 1: Pt to report independence and compliance with home program. Goal 2: Pt to report decrease dizziness by 90% throughout the day. Goal 3: Pt to present with negative BPPV testing. Goal 4: Pt to score no greater than 2/100 on DHI indicating improved QOL. Pt will benefit from skilled PT for 1x/week from 01/05/2025 to 03/30/2025 to address the above impairments. I hereby deem this POC medically necessary. Please sign below. Date: Cosigned by Devi Serrano NP at 01/05/2025 4:09 PM EDT documented in this encounter Plan of Treatment Upcoming Encounters Date Type Department Care Team (Late st Contact Info) Description 01/13/2025 1:30 PM EDT Treatment [facility] [address] [facility] [address] [place] [address] Celine Hernandez, KAILEY 10/06/2025 9:45 AM EDT Office Visit [facility] [place] [address] [place] [address] Ghulam Thrasher DO [address] [place] [address] documented as of this encounter Visit Diagnoses Diagnosis Vertigo- Primary Dizziness and giddiness documented in this encounter Additional Health Concerns Assessment Noted Time PHQ-9 Depression Total Score: 5 11/14/19 23 10:00 AM EDT documented as of this encounter Care Teams Senior Applications Engineer Relationship Specialty Start Date End Date Kait Real MD PCP - General 09/16/22 Kait Real MD PCP - ACO Reach 06/10/24 documented as of this encounter
--- OUTSIDE RECORDS SUMMARY | 2025-01-06 08:49 | XMS_ITS | Encounter Summary ---
Author Organization [facility] Address [address] [place] [address] Care Team Providers Care Burning Machine Operator Name Role Phone Kait Real MD Primary Care Provider +1- [phone] Source Comments In the event this information is protected by the Federal Confidentiality of Alcohol and Drug AbusePatient Records regulations: The Federal rules restrict any use of the information to criminally investigate or prosecute any alcohol or drug abuse patient.[facility] Encounter Details Date Type Department Care Team (Late st Contact Info) Description 12/13/2020 Patient Msg [facility] [address] [phone] Provider, Ccf Upcoming video visit Social History [...] N ot on file 04/11/2020 Data from: https://www.neighborhoodatlas.medicine.[facility].edu/. Last address used for calculation Not on [...] Assessment Author Yes 01/05/2014 9:41 AM EDT Candy Duarte Maa * Do you have serious [...] on filedocumented in this encounter Care Teams Burning Machine Operator Relationship Specialty Start Date End Date Addie, Kait Roberto MD PCP - General Family Medicine 11/22/13 documented as of this encounter
--- OUTSIDE RECORDS SUMMARY | 2025-01-06 08:49 | XMS_ITS | Encounter Summary ---
Author Organization [facility] Address [address] [place] [address] Care Team Providers Care Platform Material Handling Supervisor Name Role Phone Kait Real MD Primary Care Provider +1- [phone] Source Comments In the event this information is protected by the Federal Confidentiality of Alcohol and Drug AbusePatient Records regulations: The Federal rules restrict any use of the information to criminally investigate or prosecute any alcohol or drug abuse patient.[facility] Encounter Details Date Type Department Care Team (Late st Contact Info) Description 07/26/2023 [place] [address] Provider, Ccf Medicare Coverage of Physical Exams [...] N ot on file 04/11/2020 Data from: https://www.neighborhoodatlas.medicine.[facility].edu/. Last address used for calculation Not on [...] on filedocumented in this encounter Care Teams Platform Material Handling Supervisor Relationship Specialty Start Date End Date Kait Real MD PCP - General Family Medicine 11/22/13 documented as of this encounter
--- OUTSIDE RECORDS SUMMARY | 2025-01-06 08:49 | XMS_ITS | Encounter Summary ---
Author Organization [facility] Address [address] [place] [address] Care Team Providers Care City Magistrate Name Role Phone Kait Real MD Primary Care Provider +1- [phone] Source Comments In the event this information is protected by the Federal Confidentiality of Alcohol and Drug AbusePatient Records regulations: The Federal rules restrict any use of the information to criminally investigate or prosecute any alcohol or drug abuse patient.[facility] Encounter Details Date Type Department Care Team (Late st Contact Info) Description [facility] [address] [phone] Provider, Ccf RE:F/U after MRI Social History [...] N ot on file 04/11/2020 Data from: https://www.neighborhoodatlas.medicine.[facility].edu/. Last address used for calculation Not [...] on filedocumented in this encounter Care Teams City Magistrate Relationship Specialty Start Date End Date Addie, Kait Roberto MD PCP - General Family Medicine 11/22/13 documented as of this encounter
--- OUTSIDE RECORDS SUMMARY | 2025-01-06 08:49 | XMS_ITS | Clinical Summary ---
Author Organization [facility] Address [address] [place], [place] [id number] Care Team Providers Care Marinator Name Role Phone Kait Real MD Primary Care Provider +1- [phone] Allergies Active Allergy Reactions Criticality Noted Date [...] N ot on file 04/11/2020 Data from: https://www.neighborhoodatlas.medicine.[facility].edu/. Last address used for calculation Not [...] Screening 03/04/2021 03/04/2016 Bone Density Screening 07/26/2023 Advance Directive Discussion 05/04/2024 Influenza Vaccine (#1) 2025 RSV Vaccine (1 - 1-dose 75+ [...] - 149 mg/dL 03/04/2016 8:59 AM EDT [facility] Cholesterol, Total 202(H) 100 - 199 mg/dL 03/04/2016 8:59 AM EDT [facility] HDL Cholesterol 102 >55 mg/dL 6 8:59 AM EDT [facility] VLDL Cholesterol 9 6 - 40 mg/dL 03/04/2016 8:59 AM EDT [facility] LDL Cholesterol, Calculated 91 60 - 129 mg/dL 03/04/2016 8:59 AM EDT [facility] Fasting Time 12 hrs 03/04/2016 8:26 AM EDT [facility] TC:HDL Ratio 1.98 1.00 - 5.00 03/04/2016 8:59 AM EDT [facility] LDL:HDL Ratio 0.89 0.50 - 3.55 03/04/2016 8:59 AM EDT [facility] Non HDL Cholesterol 100 90 - 159 mg/dL 03/04/2016 8:59 AM EDT [facility] Blood specimen (specimen) BLOOD SPECIMEN / Unknown 03/04/2016 8:23 AM EDT 03/04/2016 8:26 AM EDT us Ryan Moore MD LABORATORY Final Result Performing Organization Address City/State/[facility] [[email or web address]] Co de Phone Number [facility] [address] [place] [address] * (ABNORMAL) COMP METABOLIC PANEL (03/04/2016 8:23 AM EDT) Protein, Total 7.1 6.3 - 8.0 g/dL 03/04/2016 8:59 AM EDT [facility] Albumin 4.3 3.9 - 4.9 g/dL 03/04/2016 8:59 AM EDT [facility] Calcium 8.8 8.6 - 10.0 mg/dL 03/04/2016 [facility] Bilirubin, Total 0.5 0.2 - 1.3 mg/dL 03/04/2016 8:59 AM [facility] Alkaline Phosphatase 121(H) 32 - 117 U/L 03/04/2016 8:59 AM [facility] AST 20 13 - 35 U/L 03/04/2016 8:59 AM [facility] Glucose 103(H) 74 - 99 mg/dL 03/04/2016 8:59 AM [facility] BUN 12 7 - 21 mg/dL 03/04/2016 8:59 AM [facility] Creatinine 0.76 0.58 - 0.96 mg/dL 03/04/2016 8:59 AM [facility] Sodium 142 136 - 144 mmol/L 03/04/2016 8:59 AM [facility] Potassium 3.9 3.7 - 5.1 mmol/L 03/04/2016 8:59 AM [facility] Chloride 104 97 - 105 mmol/L 03/04/2016 8:59 AM [facility] CO2 26 22 - 30 mmol/L 03/04/2016 8:59 AM [facility] Anion Gap 12 9 - 18 mmol/L 03/04/2016 8:59 AM [facility] ALT 23 7 - 38 U/L 03/04/2016 8:59 AM [facility] eGFR- >60 03/04/2016 8:59 AM [facility] eGFR-All Other Races >60 . 03/04/2016 8:59 AM [facility] Comment: eGFR (Estimated GFR) Units of [...] us Ryan Moore MD LABORATORY Final Result [facility] [address] [place] [address] from Last 3 Months or Most Recently Relevant to Health Maintenance Insurance [employer] Care Teams Marinator Relationship Specialty Start Date End Date Ericly, Kait Roberto MD PCP - General Family Medicine 11/22/13
--- OUTSIDE RECORDS SUMMARY | 2025-01-06 08:49 | XMS_ITS | Encounter Summary ---
Author Organization [facility] Address [address] [place] [address] Care Team Providers Care Supervisor Insecticide Name Role Phone Kait Real MD Primary Care Provider +1- [phone] Source Comments In the event this information is protected by the Federal Confidentiality of Alcohol and Drug AbusePatient Records regulations: The Federal rules restrict any use of the information to criminally investigate or prosecute any alcohol or drug abuse patient.[facility] Encounter Details Date Type Department Care Team (Late st Contact Info) Description [facility] [address] [phone] Provider, Ccf upcoming Mri and VV with [...] N ot on file 04/11/2020 Data from: https://www.neighborhoodatlas.medicine.[facility].edu/. Last address used for calculation [...] Author No 01/05/2014 9:41 AM EDT Olive Duatre Ma * Are you blind or do [...] on filedocumented in this encounter Care Teams Supervisor Insecticide Relationship Specialty Start Date End Date Kait Real MD PCP - General Family Medicine 11/22/13 documented as of this encounter
--- OUTSIDE RECORDS SUMMARY | 2025-01-06 08:49 | XMS_ITS | Encounter Summary ---
Author Organization [facility] Address [address] [place] [address] Care Team Providers Care Feather Mixer Name Role Phone Kait Real MD Primary Care Provider +1- [phone] Source Comments In the event this information is protected by the Federal Confidentiality of Alcohol and Drug AbusePatient Records regulations: The Federal rules restrict any use of the information to criminally investigate or prosecute any alcohol or drug abuse patient.[facility] Encounter Details Date Type Department Care Team (Late st Contact Info) Description 12/25/[facility] [address] [phone] Provider, Luis RE:Follow up after your appointment [...] N ot on file 04/11/2020 Data from: https://www.neighborhoodatlas.medicine.[facility].edu/. Last address used for calculation Not on [...] on filedocumented in this encounter Care Teams Feather Mixer Relationship Specialty Start Date End Date Addie, Kait Roberto MD PCP - General Family Medicine 11/22/13 documented as of this encounter
--- OUTSIDE RECORDS SUMMARY | 2025-01-06 08:49 | XMS_ITS | Clinical Summary ---
Author Organization [facility] Address [id number] [place] [address] Care Team Providers Care Rug Cleaner Helper Name Role Phone Kait Real MD Primary Care Provider [phone] Allergies Active Allergy Reactions Criticality Noted Date [...] in the morning and at bedtime. Active albuterol (PROVENTIL,VENT TUYET) 2.5 mg /3 mL (0.083 %) nebulizer solution Inhale 3 mL (2.5 mg total) by nebulization every 4 (four) hours as needed. 4 Active latanoprost (XALATAN) 0.005 % ophthalmic solution Administer 1 drop to both eyes nightly. Active acetaminophen (TYLENOL EXTRA STRENGTH) 500 mg tablet Take 1 tablet (500 mg total) by mouth every 6 (six) hours as needed for pain or headaches. Active omeprazole (PriLOSEC) 20 mg capsuleIndicati ons:Nausea Take 2 capsules (40 mg total) by mouth in the morning and at bedtime. 90 capsule 1 5 Active Active Problems Problem [...] notify her of the test results through [facility] but we will see her back to review the CT in detail and determine further management from there. If no obvious source for the bleeding is identified on her CT, we will need to schedule cystoscopy. Calculus of kidney 10/13/2017 Overview (12/30/2023): passed 7 mm left renal stone 10/19: Left flank pain. SHe had a ct of the chest yesterday at [facility]. We reviewed that report which dated there was limited imaging of her abdomen but no suspicious findings. Plan for stone protocol CT 07/01/23: Recent gross hematuria. Will check CT 12/30/23: No stones on CT Encounters Date Type Department Care Team Description 10/24/2024 Telephone [facility] General Surgery [address] [place] [phone] Dawna Hurtado CMA 10/13/2024 7:30 AM EDT - 10/13/2024 8:15 AM EDT Surgery [facility] - Surgery [address] [place] [address] Alvarez Braga, DO ESOPHAGOGASTRODUODENOSCOPY DIAGNOSTIC [94949 (CPT )] 10/13/2024 7:29 AM EDT Anesthesia Event [facility] - Surgery [address] [place] [address] Sabino Cavanaugh MD Reynolds, Vern D, 10/13/2024 6:06 AM EDT - 10/13/2024 8:29 AM EDT Hospital Encounter [facility] - Surgery [address] [place] [address] Alvarez Braga, DO Acute superficial gastritis without hemorrhage (Primary Dx); Screen for colon cancer; Nausea; Polyp of descending colon, unspecified type; Chronic diarrhea; Family history of colon cancer in father Discharge Disposition: Home 10/13/2024 Travel 10/06/2024 3:40 PM EDT Support Visit [facility] - Pre Admit [address] [place] [address] from Last 3 Months Family History Medical [...] Sign Reading Time Taken Comments Blood Pressure 124/59 10/13/2024 8:20 AM EDT Pulse 64 10/13/2024 8:20 AM EDT Temperature 36.4 C (97.6 F) 10/13/2024 6:35 AM EDT Respiratory Rate 14 10/13/2024 8:20 AM EDT Oxygen Saturation 99% 10/13/2024 8:10 AM EDT Inhaled Oxygen Concentration - - Weight 59.9 kg (132 lb) 10/13/2024 6:35 AM EDT Height 157.5 cm (5' 2 ) 10/13/2024 6:35 AM EDT Body Mass Index 24.14 10/13/2024 6:35 AM EDT Plan of Treatment Health Maintenance Due Date Last Done Comments Depression Screening 1970 DTaP,Tdap and Td Vaccines (1 - Tdap) 1977 Fall Risk Screening 07/26/2023 Influenza Vaccine 01/02/2025 Adult BMI Screening 10/13/2025 10/13/2024 Tobacco Screening 10/13/2025 10/13/2024 Colonoscopy 10/13/2029 10/13/2024, 10/02, 07/30/2016, Additional history exists Zoster (Shingles) Vaccine Completed 2021, 11/26/2021, 01/11/2015 Medical Devices Implanted Type Area Kosher Sealer Device Identifier Shelf Expiration Date Model / Serial / Lot Lens Iol [id number] Jem Rpl [id number] - [id number] - [id number] Implanted:Qty: 1 on 08/04/2024 by Jana Rocha MD at [facility] Lens Left: Eye [employer] 02/07/2026 [id number] / [id number] / NA Procedures Procedure Name Priority Date/Time Associated Diagnosis Comments COLONOSCOPY 10/13/2024 7:37 AM EDT SURGICAL PATHOLOGY Routine 10/13/2024 7:35 AM EDT Screen for colon cancer AR COLON CA SCRN NOT HI RSK IND 10/13/2024 7:29 AM EDT Screen for colon cancer AR COLONOSCOPY FLX DX W/YANET J SPEC WHEN PFRMD 10/13/2024 7:29 AM EDT Screen for colon cancer AR ESOPHAGOGASTRODUODENOSCOP Y TRANSORAL DIAGNOSTIC 10/13/2024 7:29 AM EDT Screen for colon cancer EGD 10/13/2024 7:13 AM EDT PROVATION COLONOSCOPY Routine 10/13/2024 6:30 AM EDT PROVATION EGD Routine 10/13/2024 6:30 AM EDT from Last 3 Months Results * Colonoscopy (10/13/2024 7:37 AM EDT) 10/13/2024 7:37 AM EDT Narrative PM CARDIOVASCULAR - 10/13/2024 7:55 AM EDT [facility] Patient Name: Valerie Yee Procedure Date No Time: 10/13/2024 CSN : [id number] Date of : 1960 Admit Type: Outpatient Age: 64 Room: [place] [address] Gender: Female Note Status: Finalized Attending MD: Alvarez Braga DO, Procedure: Colonoscopy Indications: Chronic diarrhea, Family history of colon cancer Providers: Alvarez Braga DO Referring MD: Alvarez Braga DO Medicines: Propofol per Anesthesia Complications: No immediate complications. Procedure: After I obtained informed consent, the scope was passed under direct vision. Throughout the procedure, the patient's blood pressure, pulse, and oxygen saturations were monitored continuously. The OLYMPUS [id number] # [id number] PEDIATRIC COLONOSCOPE was introduced through the anus and advanced to the cecum, identified by appendiceal orifice and ileocecal valve. The OLYMPUS [id number] # [id number] PEDIATRIC COLONOSCOPE was introduced through the and advanced to. The colonoscopy was performed without difficulty. The patient tolerated the procedure well. The quality of the bowel preparation was good. Findings: The perianal and digital rectal examinations were normal. A 5 mm polyp was found in the mid descending colon. The polyp was sessile. The polyp was removed with a cold biopsy forceps. Resection and retrieval were complete. The exam was otherwise normal throughout the examined colon. Biopsies for histology were taken with a cold forceps from the cecum, transverse colon and sigmoid colon for evaluation of microscopic colitis. The exam was otherwise without abnormality on direct and retroflexion views. Estimated Blood Loss: Estimated blood loss: none. Impression: - One 5 mm polyp in the mid descending colon, removed with a cold biopsy forceps. Resected and retrieved. - The examination was otherwise normal on direct and retroflexion views. - Biopsies were taken with a cold forceps from the cecum, transverse colon and sigmoid colon for evaluation of microscopic colitis. Recommendation: - Discharge patient to home. - Patient has a contact number available for emergencies. The signs and symptoms of potential delayed complications were discussed with the patient. Return to normal activities tomorrow. Written discharge instructions were provided to the patient. - Discharge patient to home. - Repeat colonoscopy in 5 years for screening with family history and for surveillance based on pathology results. - Return to my office PRN. Procedure Code(s): --- Professional --- 63323, Colonoscopy, flexible; with biopsy, single or multiple Diagnosis Code(s): --- Professional --- D12.4, Benign neoplasm of descending colon K52.9, Noninfective gastroenteritis and colitis, unspecified Z80.0, Family history of malignant neoplasm of digestive organs CPT copyright 2022 [employer]. All rights reserved. The codes documented in this report are preliminary and upon bias cutter helper review may be revised to meet current compliance requirements. DO Alvarez Abel DO 10/13/2024 7:54:43 AM Number of Addenda: 0 Note Initiated On: 10/13/2024 7:37 AM Procedure Note Alvarez Braga DO - 10/13/2024 [facility] Patient Name: Valerie Yee Procedure Date No Time: 10/13/2024 CSN : [id number] Date of : 1960 Admit Type: Outpatient Age: 64 Room: [place] [address] Gender: Female Note Status: Finalized Attending MD: Alvarez Braga DO, Procedure: Colonoscopy Indications: Chronic diarrhea, Family history of colon cancer Providers: Alvarez Braga DO Referring MD: Alvarez Braga DO Medicines: Propofol per Anesthesia Complications: No immediate complications. Procedure: After I obtained informed consent, the scope was passed under direct vision. Throughout theprocedure, the patient's blood pressure, pulse, and oxygen saturations were monitored continuously. TheShipwirePUS PCF-[id number] # [id number] PEDIATRIC COLONOSCOPE was introduced through the anus and advanced to thececum, identified by appendiceal orifice and ileocecalvalve. The OLYMPUS PCF-[id number] # [id number] PEDIATRIC COLONOSCOPE was introduced through the and advanced to. The colonoscopy was performed withoutdifficulty. The patient tolerated the procedure well. Thequality of the bowel preparation was good. Findings: The perianal and digital rectal examinations were normal. A 5 mm polyp was found in the mid descending colon. The polyp was sessile. The polyp was removed with a cold biopsy forceps. Resectionand retrieval were complete. The exam was otherwise normal throughout the examined colon. Biopsies for histology were taken with a cold forceps from the cecum, transverse colon and sigmoid colon for evaluation of microscopiccolitis. The exam was otherwise without abnormality on direct and retroflexion views. Estimated Blood Loss: Estimated blood loss: none. Impression: - One 5 mm polyp in the mid descending colon,removed with a cold biopsy forceps. Resected andretrieved. - The examination was otherwise normal on directand retroflexion views. - Biopsies were taken with a cold forceps from the cecum, transverse colon and sigmoid colon for evaluation of microscopic colitis. Recommendation: - Discharge patient to home. - Patient has a contact number available for emergencies. The signs and symptoms of potential delayed complications were discussed with thepatient. Return to normal activities tomorrow. Written discharge instructions were provided to thepatient. - Discharge patient to home. - Repeat colonoscopy in 5 years for screening with family history and for surveillance based onpathology results. - Return to my office PRN. Procedure Code(s): --- Professional --- 33739, Colonoscopy, flexible; with biopsy, singleor multiple Diagnosis Code(s): --- Professional --- D12.4, Benign neoplasm of descending colon K52.9, Noninfective gastroenteritis and colitis, unspecified Z80.0, Family history of malignant neoplasm of digestive organs CPT copyright 2022 [employer]. All rights reserved. The codes documented in this report are preliminary and upon bias cutter helper reviewmay be revised to meet current compliance requirements. DO Alvarez Abel DO 10/13/2024 7:54:43 AM Number of Addenda: 0 Note Initiated On: 10/13/2024 7:37 AM Alvarez Braga DO GI PROCEDURE ORDERABLES Fin al Result PM CARDIOVASCULAR * Surgical Pathology (10/13/2024 7:35 AM EDT) Case Report Surgical Pathology Report Case: [id number] Authorizing Provider: Alvarez Braga DO Collected: 10/13/2024 0735 Ordering Location: [facility] Received: 10/13/[address] [facility] - Surgery Pathologist: Arlette Dunlap DO Specimens: 1) - Antrum, Antrum bx 2) - Esophagus, distal esophagus bx 3) - Colon, random colon bx's 4) - Colon, descending colon polyp 10/21/2024 12:58 PM EDT [facility] Final Diagnosis Stomach, biopsy: Chronic, inactive gastritis. Negative for intestinal metaplasia. Esophagus, biopsy: Gastroesophageal junction-type mucosa with no significant histopathologic abnormality. Negative for intestinal metaplasia. Colon, random biopsies: Colonic mucosa with no significant histopathologic abnormality. No histologic features of microscopic colitis. Descending colon, biopsy: Adenoma 10/21/2024 12:58 PM EDT [facility] at 1258 EDT Comment Features of H. pylori infection are not identified on H&E sections. 10/21/2024 12:58 PM EDT [facility] Gross Description 1. Received in formalin labeled [employer], antrum biopsy are 3 boone tissue bits 0.2 cm - 0.4 cm. The specimen is filtered and submitted entirely in a single cassette. (1,ns,[id number], m1) SW 2. Received in formalin labeled [employer], distal esophagus biopsy is 1 boone feathery tissue bits 0.2 cm in greatest dimension. The specimen is filtered and submitted entirely in a single cassette. (1,ns,[id number], m1) SW 3. Received in formalin labeled [employer], random colon biopsies are 4 boone feathery tissue bits 0.3 cm - 0.5 cm. The specimen is filtered and submitted entirely in a single cassette. (1,ns,[id number], m1) SW 4. Received in formalin labeled [employer], descending colon polyp is 1 boone polypoid fragment 0.3 cm in greatest dimension. The specimen is filtered and submitted entirely in a single cassette. (1,ns,[id number], m1) SW 10/21/2024 12:58 PM EDT [facility] Embedded Images 10/21/2024 12:58 PM EDT [facility] Tissue Mastoid antrum structure / Unknown 10/13/2024 7:35 AM EDT 10/13/2024 12:08 PM EDT Comment:Pre-op diagnosis: screening Tissue specimen (specimen) Esophageal structure / Unknown 10/13/2024 7:36 AM EDT 10/13/2024 12:08 PM EDT Comment:Pre-op diagnosis: screening Tissue specimen (specimen) Colon structure / Unknown 10/13/2024 7:45 AM EDT 10/13/2024 12:08 PM EDT Comment:Pre-op diagnosis: screening Tissue specimen (specimen) Colon structure / Unknown 10/13/2024 7:47 AM EDT 10/13/2024 12:08 PM EDT Comment:Pre-op diagnosis: screening Alvarez Braga DO PATHOLOGY/CYTOLOGY ORDERABL ES Final Result [facility] [address] [place] [address], * EGD (10/13/2024 7:13 AM EDT) 10/13/2024 7:13 AM EDT Narrative PM CARDIOVASCULAR - 10/13/2024 7:40 AM EDT [facility] Patient Name: Valerie Yee Procedure Date No Time: 10/13/2024 CSN : [id number] Date of : 1960 Admit Type: Outpatient Age: 64 Room: [place] [address] Gender: Female Note Status: Finalized Attending MD: Alvarez Braga DO, Procedure: Upper GI endoscopy Indications: Nausea Providers: Alvarez Braga DO Referring MD: Alvarez Braga DO Medicines: Propofol per Anesthesia Complications: No immediate complications. Procedure: After obtaining informed consent, the endoscope was passed under direct vision. Throughout the procedure, the patient's blood pressure, pulse, and oxygen saturations were monitored continuously. The OLYMPUS GIF-[id number] #[id number] ADULT GASTROSCOPE was introduced through the mouth, and advanced to the fourth part of duodenum. The upper GI endoscopy was accomplished without difficulty. The patient tolerated the procedure well. Findings: The nasopharynx and oropharynx were normal. The examined esophagus was normal. Biopsies were taken with a cold forceps for histology. Scattered moderate inflammation characterized by adherent blood, congestion (edema), erosions, erythema, granularity and nodularity was found in the gastric antrum. Biopsies were taken with a cold forceps for histology. The examined duodenum was normal. Estimated Blood Loss: Estimated blood loss was minimal. Impression: - Normal nasopharynx and oropharynx. - Normal esophagus. Biopsied. - Gastritis, characterized by adherent blood, congestion (edema), erosions, erythema, granularity and nodularity. Biopsied. - Normal examined duodenum. Recommendation: - Await pathology results. - No aspirin, ibuprofen, naproxen, or other non-steroidal anti-inflammatory drugs for 8 weeks. - Use Prilosec (omeprazole) 40 mg PO BID for 6 weeks. Procedure Code(s): --- Professional --- 75827, Esophagogastroduodenoscopy, flexible, transoral; with biopsy, single or multiple Diagnosis Code(s): --- Professional --- K29.70, Gastritis, unspecified, without bleeding R11.0, Nausea CPT copyright 2022 [employer]. All rights reserved. The codes documented in this report are preliminary and upon bias cutter helper review may be revised to meet current compliance requirements. DO Alvarez Abel DO 10/13/2024 7:40:06 AM Number of Addenda: 0 Note Initiated On: 10/13/2024 7:13 AM Procedure Note Alvarez Braga DO - 10/13/2024 [facility] Patient Name: Valerie Yee Procedure Date No Time: 10/13/2024 CSN : [id number] Date of : 1960 Admit Type: Outpatient Age: 64 Room: [place] [address] Gender: Female Note Status: Finalized Attending MD: Alvarez Braga DO, Procedure: Upper GI endoscopy Indications: Nausea Providers: Alvarez Braga DO Referring MD: Alvarez Braga DO Medicines: Propofol per Anesthesia Complications: No immediate complications. Procedure: After obtaining informed consent, the endoscope was passed under direct vision. Throughout theprocedure, the patient's blood pressure, pulse, and oxygen saturations were monitored continuously. TheOLYMPUS GIF-[id number] #[id number] ADULT GASTROSCOPE was introduced through the mouth, and advanced to the fourth partof duodenum. The upper GI endoscopy was accomplished without difficulty. The patient tolerated the procedure well. Findings: The nasopharynx and oropharynx were normal. The examined esophagus was normal. Biopsies were taken with a cold forceps for histology. Scattered moderate inflammation characterized by adherent blood, congestion (edema), erosions, erythema, granularity and nodularitywas found in the gastric antrum. Biopsies were taken with a cold forcepsfor histology. The examined duodenum was normal. Estimated Blood Loss: Estimated blood loss was minimal. Impression: - Normal nasopharynx and oropharynx. - Normal esophagus. Biopsied. - Gastritis, characterized by adherent blood, congestion (edema), erosions, erythema, granularity and nodularity. Biopsied. - Normal examined duodenum. Recommendation: - Await pathology results. - No aspirin, ibuprofen, naproxen, or other non-steroidal anti-inflammatory drugs for 8weeks. - Use Prilosec (omeprazole) 40 mg PO BID for 6weeks. Procedure Code(s): --- Professional --- 25995, Esophagogastroduodenoscopy, flexible, transoral; with biopsy, single or multiple Diagnosis Code(s): --- Professional --- K29.70, Gastritis, unspecified, without bleeding R11.0, Nausea CPT copyright 2022 [employer]. All rights reserved. The codes documented in this report are preliminary and upon bias cutter helper reviewmay be revised to meet current compliance requirements. DO Alvarez Abel DO 10/13/2024 7:40:06 AM Number of Addenda: 0 Note Initiated On: 10/13/2024 7:13 AM Alvarez Braga DO GI PROCEDURE ORDERABLES Fin al Result PM CARDIOVASCULAR * EGD Report (10/13/2024 6:30 AM EDT) Narrative SYSTEMGENERATED, DOCUMENTATION - 10/13/2024 6:30 AM EDT This order has been auto-finalized for image and report archival in PACs. *For full report details, please reach out to your physician. This image is visible to you in MyChart.* us Alvarez Braga DO IMG OR IMG ORDERABLES Final Result * Colonoscopy Report (10/13/2024 6:30 AM EDT) Narrative SYSTEMGENERATED, DOCUMENTATION - 10/13/2024 6:30 AM EDT This order has been auto-finalized for image and report archival in PACs. *For full report details, please reach out to your physician. This image is visible to you in MyChart.* us Alvarez Braga DO IMG OR IMG ORDERABLES Final Result from Last 3 Months Insurance [employer] Member Subscriber Plan / Payer (Ef fective 2016-Present) Name:Valerie Yeee Relation to Subscriber:Self Name:Valerie Yee Payer ID:Not on file Type:Not on file Address: [facility] [address] [id number] MEDICARE Care Teams Rug Cleaner Helper Relationship Specialty Start Date End Date Kait Real MD [address] [place] [address] PCP - General Family Medicine 10/07/17
--- OUTSIDE RECORDS SUMMARY | 2025-01-06 08:49 | XMS_ITS | Encounter Summary ---
Author Organization [facility] Address [address] [place] [address] Care Team Providers Care Manager Critical Care Name Role Phone Kait Real MD Primary Care Provider [phone] Kait Real MD Unavailable [phone] Encounter Details Date Type Department Care Team (Late st Contact Info) Description 11/10/2023 Orders Only [facility] Medicine [address] [place] [address] Oscar Riojas MD [address] [address] Social History Tobacco Use Types [...] How often do you attend chur or congregational services? More than 4 times per year 11/12/2022 Do you belong to any clubs o r organizations such as muslim groups, unions, fraternal or athletic groups, or [...] Recorded Patient Health Questionnaire-2 Score 0 09/29/2023 [facility] - Occupational Stress Questionnaire Answer Date [...] place to sleep or slept in a fci (including now)? No 11/12/2022 Comments No Sex [...] Info) Description 01/13/2025 1:30 PM EDT Treatment [facility] [address] [place] [address] Celine Hernandez PT 10/06/2025 9:45 AM EDT Office Visit [facility] [address] [place] [phone] Ghulam Thrasher DO [address] [place] [address] documented as of this encounter [...] documented as of this encounter Care Teams Manager Critical Care Relationship Specialty Start Date End Date Kait Real MD PCP - General 09/16/22 Kait Real MD PCP - ACO Reach 06/10/24 documented as of this encounter
--- OUTSIDE RECORDS SUMMARY | 2025-01-06 08:49 | XMS_ITS | Encounter Summary ---
Author Organization [facility] Address [address] [place] [address] Care Team Providers Care Supervisor Lens Generating Name Role Phone Kait Real MD Primary Care Provider [phone] Kait Real MD Unavailable [phone] Encounter Details Date Type Department Care Team (Late st Contact Info) Description 12/03/2022 Orders Only [facility] [address] [place] [address] Devi Serrano, MANNEQUIN MAKER [address] [place], [place] [id number] Social History Tobacco Use Types Packs/Day Years [...] How often do you attend chur or pentecostalism services? More than 4 times per year 11/12/2022 Do you belong to any clubs o r organizations such as mosque groups, unions, fraternal or athletic groups, or [...] Recorded Patient Health Questionnaire-2 Score 0 11/13/2022 [facility] - Occupational Stress Questionnaire Answer Date [...] nursing home (including now)? No 11/12/2022 Comments Unknown Sex [...] Physical Therapy [address] [place] [phone] Celine Hernandez, KAILEY 10/06/2025 9:45 AM EDT Office Visit [facility] [address] [place] [address] Price, Ghulam D, DO [address] [place] [address] documented as of this encounter Procedures Procedure [...] as of this encounter Care Teams Supervisor Lens Generating Relationship Specialty Start Date End Date Kait Real MD PCP - General 09/16/22 Kait Real MD PCP - ACO Reach 06/10/24 documented as of this encounter
--- OUTSIDE RECORDS SUMMARY | 2025-01-06 08:49 | XMS_ITS | Encounter Summary ---
Author Organization [facility] Address [address] [place] [address] Care Team Providers Care Sports Internship Name Role Phone Kait Real MD Primary Care Provider [phone] Kait Real MD Unavailable Encounter Details Date Type Department Care Team (Late Contact Info) Description 09/16/2022 Abstract [facility] [address] [facility] [address] [place] [address] Ghulam Thrasher DO [address] [address] [place] [address] Social History Tobacco Use Types Packs/Day Years [...] Encounters Date Type Department Care Team (Late Contact Info) Description 01/13/2025 1:30 PM EDT Treatment [facility] [address] [place] [address] Celine Hernandez, PT 10/06/2025 9:45 AM EDT Office Visit [facility] [address] [place] [address] Ghulam Thrasher DO [address] [place] [address] documented as of this encounter Visit Diagnoses Not on filedocumented in this encounter Care Teams Sports Internship Relationship Specialty Start Date End Date Kait Real MD PCP - General 09/16/22 Kait Real MD PCP - ACO Reach 06/10/24 documented as of this encounter
--- OUTSIDE RECORDS SUMMARY | 2025-01-06 08:50 | XMS_ITS | Encounter Summary ---
Author Organization [facility] Address [address] [place] [address] Care Team Providers Care Director Of Product Management Name Role Phone Kait Real MD Primary Care Provider [phone] Kait Real MD Unavailable [phone] Encounter Details Date Type Department Care Team (Latest Contact Info) Description 01/05/2025 Travel Social History Tobacco Use Types Packs/Day [...] How often do you attend chur or rastafari services? More than 4 times per year 04/14/2024 Do you belong to any clubs o r organizations such as zoroastrian groups, unions, fraternal or athletic groups, or [...] Recorded Patient Health Questionnaire-2 Score 0 09/30/2024 [facility] of Occupat ional Health - Occupational Stress [...] place to sleep or slept in a correction (including now)? No 11/12/2022 Housing Stability Vital Sign Answer Pepito e Recorded In the last 12 months, was t here a time when you were not able to pay the mortgage or rent on time? No 04/14/2024 In the past 12 months, how m any times have you moved where you were living? 0 04/14/2024 At any time in the past 12 m [facility], were you homeless or living in a correction (including now)? No 04/14/2024 Comments No Sex [...] Physical Therapy [address] [place] [address] Celine Hernandez PT 10/06/2025 9:45 AM EDT Office Visit [facility] [address] [place] [address] Ghulam Thrasher DO [address] [place] [address] documented as of this encounter Visit Diagnoses Not on filedocumented in this encounter Additional Health Concerns Assessment Noted Time PHQ-9 Depression Total Score: 5 11/14/19 23 10:00 AM EDT documented as of this encounter Care Teams Director Of Product Management Relationship Specialty Start Date End Date Kait Real MD PCP - General 09/16/22 Kait Real MD PCP - ACO Reach 06/10/24 documented as of this encounter
--- OUTSIDE RECORDS SUMMARY | 2025-01-06 08:50 | XMS_ITS | Encounter Summary ---
Author Organization [facility] Address [address] [place] [address] Care Team Providers Care Circulation Assistant Name Role Phone Kait Real MD Primary Care Provider [phone] Source Comments In the event this information is protected by the Federal Confidentiality of Alcohol and Drug AbusePatient Records regulations: The Federal rules restrict any use of the information to criminally investigate or prosecute any alcohol or drug abuse patient.[facility] Encounter Details Date Type Department Care Team (Late st Contact Info) Description 11/21/2019 Patient Msg [facility] [address] [place] [id number] Provider, [facility] recommended follow up with Dr. [...] on filedocumented in this encounter Care Teams Circulation Assistant Relationship Specialty Start Date End Date Kait Real MD PCP - General Family Medicine 11/22/13 documented as of this encounter
--- OUTSIDE RECORDS SUMMARY | 2025-01-06 08:50 | XMS_ITS | Encounter Summary ---
Author Organization [employer] Address [id number] [place] [address] Care Team Providers Care Tavern Car Attendant Name Role Phone Kait Real MD Primary Care Provider [phone] Encounter Details Date Type Department Care Team (Late st Contact Info) Description 12/30/2023 Telephone [facility] [address] [place] [address] [place] [address] Cristina Mendez PA [address] [place] [address] Social History Tobacco Use Types Packs/Day Years [...] for a cystoscopy with Dr. Solis in [place]. She will let you know if she [...] on filedocumented in this encounter Care Teams Tavern Car Attendant Relationship Specialty Start Date End Date Wonderly, Kait Barrios MD [address] [place] [address] PCP - General Family Medicine 6/6/18 documented as of this encounter
--- OUTSIDE RECORDS SUMMARY | 2025-01-06 08:50 | XMS_ITS | Clinical Summary ---
Author Organization [facility] Address [address] [place] [address] Care Team Providers Care Windows Security Analyst Name Role Phone Kait Real MD Primary Care Provider [phone] Allergies Active Allergy Reactions Criticality Noted Date Comments Atorvastatin Headache 04/14/2023 Codeine Dizziness,GI intolerance,Nausea Only,Nausea And Vomiting 01/05/2014 Hydrocodone-Acetaminoph en Unknown 09/19/2022 Other Reaction(s): dizziness, vomiting Latex Rash Low 09/19/2022 Medications latanoprost (Xalatan) 0.005 % ophthalmic solution 3 Active levothyroxine (Synthroid, Levoxyl) 88 mcg tablet Take 88 mcg by mouth in the morning. 3 Active cholecalciferol , vitamin D3, (Vitamin D3) 10 mcg (400 unit) capsule 3 Active albuterol 2.5 mg /3 mL (0.083 %) nebulizer solution Inhale 2.5 mg every 4 (four) hours if needed. 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 We reviewed that report which dated there [...] 05/02/2024 Gastroesophageal reflux disease 07/06/2012 3 05/02/2024 Family History Medical History Relation Name Comments [...] Physically or Sexually Abused Not on file Comments Unknown Sex and Gender Information Value Date Recorded Sex Assigned at Female 03/03/2023 9:55 AM EDT Legal Sex Female 9:09 PM EDT Gender Identity Female 03/03/2023 9:55 AM [...] 08/01/2024 8:56 AM EDT Plan of Treatment Upcoming Encounters Date Type Department Care Team (Late st Contact Info) Description 01/13/2025 10:20 AM EDT Office Visit [facility] [address] [place] [address] Yvonne Dueñas MD [address] [place] [address] Health Maintenance Due Date Last Done Comments CT Colonography 1958 FIT-DNA 1958 FIT 1958 FOBT 1958 Medicare Annual Wellness (AWV) 1958 Sigmoidoscopy 1958 Depression Screening 1970 Adult Tetanus 1980 Mammogram 1998 Pneumococcal Vaccine: 50+ Years (2 of 2 - PCV) 03/13/2022 03/13/2021, 04/20/2012 Fall Risk Screening 07/26/2023 COVID-19 Vaccine ( - 2023-2 5 season) 2025 Influenza Vaccine (#1) 2025 Colonoscopy 07/30/2026 07/30/2016 Colorectal Cancer Screening [...] on patient's age to complete this topic Insurance [place] [place] MEDICARE Advance Directives Documents on File Type Date Recorded Patient [employer] Expl anation Advance Directives and Livin g Will 05/02/2024 8:49 AM Care Teams Windows Security Analyst Relationship Specialty Start Date End Date Kait Real MD [address] [place] [address] PCP - General 03/03/23
--- OUTSIDE RECORDS SUMMARY | 2025-01-06 08:50 | XMS_ITS | Encounter Summary ---
Author Organization [facility] Address [address] [place] [address] Care Team Providers Care Chart Computer Name Role Phone Kait Real MD Primary Care Provider [phone] Kait Real MD Unavailable Encounter Details Date Type Department Care Team (Late st Contact Info) Description 04/21/2024 Orders Only [facility] Medicine [address] [place] [address] [facility]alloc[facility] [address] [place] [address] Social History Tobacco Use Types Packs/Day Years [...] How often do you attend chur or orthodox services? More than 4 times per year 04/14/2024 Do you belong to any clubs o r organizations such as baptism groups, unions, fraternal or athletic groups, or [...] Recorded Patient Health Questionnaire-2 Score 0 04/14/2024 [facility] [place] of Occupat ional Health - Occupational Stress [...] place to sleep or slept in a detention (including now)? No 11/12/2022 Housing Stability Vital Sign Answer Pepito e Recorded In the last 12 months, was t here a time when you were not able to pay the mortgage or rent on time? No 04/14/2024 In the past 12 months, how m any times have you moved where you were living? 0 04/14/2024 At any time in the past 12 m [facility], were you homeless or living in a detention (including now)? No 04/14/2024 Comments No Sex [...] Physical Therapy [address] [place] [address] Celine Hernandez, KAILEY 10/06/2025 9:45 AM EDT Office Visit [facility] [address] [place] [address] Ghulam Thrasher, [address] [place] [address] documented as of this encounter Procedures Procedure [...] documented as of this encounter Care Teams Chart Computer Relationship Specialty Start Date End Date Kait Real MD PCP - General 09/16/22 Kait Real MD PCP - ACO Reach 06/10/24 documented as of this encounter
--- OUTSIDE RECORDS SUMMARY | 2025-01-06 08:50 | XMS_ITS | Patient Health Record ---
Author Organization [facility] [place] Address [address] [place] [address] Care Team Providers Care Choker Setter Name Role Phone Kait Real Primary Care Provider Unavailabl e Allergies Allergen (clinical drug ingredient) Drug/Non Drug Allergy documented on EMR Reaction Allergy Type Onset Date Status Codeine Phosphate (codeine) Unknown Drug Allergy Active Codeine Sulfate (codeine) Unknown Drug Allergy Active Reason For Referral No Information Plan Of Treatment No Information Insurance Providers Payer Name Payer Address Payer Phone Subscriber Number Group Number Insured Name Patient Relationship to Insured Coverage Start Date Coverage End Date MMO [employer] [address] [place] [address] [id number] Valerie Yee Self - patient is the insured 8
--- OUTSIDE RECORDS SUMMARY | 2025-01-06 08:50 | XMS_ITS | Encounter Summary ---
Author Organization [facility] Address [address] [place] [address] Care Team Providers Care Senior Sales Operations Analyst Name Role Phone Kait Real MD Primary Care Provider [phone] Kait Real MD Unavailable [phone] Encounter Details Date Type Department Care Team (Late st Contact Info) Description 01/05/2025 [facility] [address] [place] [id number] Social History Tobacco Use Types Packs/Day Years [...] week 04/14/2024 How often do you attend [facility] or amish services? More than 4 times per year [...] Recorded Patient Health Questionnaire-2 Score 0 09/30/2024 [facility] [place] of Occupat ional Health - Occupational Stress [...] any time in the past 12 m [facility], were you homeless or [...] [facility] [address] [facility] [address] [place] [address] Celine Hernandez, PT 10/06/2025 9:45 AM EDT Office Visit [facility] [address] [place] [phone] Ghulam Thrasher, [address] [place] [address] documented as of this encounter Visit Diagnoses Not on filedocumented in this encounter Additional Health Concerns Assessment Noted Time PHQ-9 Depression Total Score: 5 11/14/19 23 10:00 AM EDT documented as of this encounter Care Teams Senior Sales Operations Analyst Relationship Specialty Start Date End Date Kait Real MD PCP - General 09/16/22 Kait Real MD PCP - ACO Reach 06/10/24 documented as of this encounter
--- OUTSIDE RECORDS SUMMARY | 2025-01-06 08:50 | XMS_ITS | Clinical Summary ---
Author Organization [facility] Address [address] [place] [address] Care Team Providers Care Pattern Molder Name Role Phone Kait Real MD Primary Care Provider [phone] Kait Real MD Unavailable [phone] Allergies Active Allergy Reactions Criticality Noted [...] capsules by mouth in the morning. Active Lidocaine-Hydrocort , Perianal, 3-0.5 % cream if needed 08/06/19 24 Active latanoprost (Xalatan) 0.005 % ophthalmic solution INSTILL 1 DROP IN BOTH EYES EVERY EVENING 08/31/19 24 Active albuterol HFA 90 mcg/act inhalerIndications: Acute cough,Asthma, unspecified asthma severity, unspecified whether complicated, unspecified whether persistent (HCC),Restrictive lung disease,Chest tightness Inhale 2 puffs every 4 (four) hours if needed for wheezing or shortness of breath (cough) for up to 10 days 18 g 04/15/20 24 Active albuterol (2.5 MG/3ML) 0.083% nebulizer solutionIndications :Acute cough,Restrictive lung disease,Chest tightness Take 3 mL (2.5 mg) by nebulization every 4 (four) hours if needed for wheezing 75 mL 04/15/20 24 Active levothyroxine (Synthroid, Levoxyl) 88 MCG tabletIndications:H ypothyroidism (acquired) Take 1 tablet (88 mcg) by mouth in the morning. Take before meals. 90 tablet 3 08/23/19 25 Active triamcinolone (Kenalog) 0.1 % creamIndications:De rmatitis APPLY TO THE AFFECTED AREA IN THE MORNING and AT BEDTIME FOR 10 DAYS 15 g 08/23/19 25 Active Additional Information Patient not taking.Reported on 11/09/2024 GLUCOSAMINE SULFATE PO Take 1,000 mg by mouth in the morning and 1,000 mg in the evening. Active dilTIAZem CD (Cardizem CD) 120 MG 24 hr capsule Take 120 mg by mouth Daily 05/02/20 24 Active acetaminophen (Tylenol) 500 MG tablet Take 500 mg by mouth every 6 (six) hours if needed Active omeprazole (PriLOSEC) [address] capsule Take 20 mg by mouth in the morning. 09/30/19 25 Active meclizine (Antivert) 25 MG tabletIndications:V ertigo,Acute gastroenteritis Take 1 tablet (25 mg) by mouth 3 (three) times a day as needed for dizziness 30 tablet 11 11/10/19 25 026 Active Active Problems Problem Noted Date Diagnosed Date Pure hypercholesterolemia 08/01/2024 Atrial tachycardia 05/02/2024 Asthma 11/13/2023 Collagen disorder 09/29/2023 Degenerative joint disease 09/29/2023 Family hx of colorectal cancer 09/29/2023 Hypothyroidism (acquired) 12/29/2022 Age-related nuclear cataract of both eyes 2022 Diverticulosis of large intestine without hemorr toby 09/19/2022 Irritable bowel syndrome with diarrhea Lactose intolerance 09/19/2022 Mild mitral regurgitation 09/19/2022 [...] a ct of the chest yesterday at [facility]. We reviewed that report which dated there was limited imaging of her abdomen but no suspicious findings. 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 04/21/2024 SOB (shortness of breath) 03/04/2016 Edema 08/18/2012 04/21/2024 Iron deficiency anemia 07/06/201204/21 Pleural effusion 07/06/2012 04/21/2024 Encounters Date Type Department Care Team Description 01/05/2025 2:30 PM EDT Evaluation [facility] [address] [place] [address] Celine Hernandez, PT Vertigo (Primary Dx) 01/05/2025 Plan of Care Documentation [facility] [address] [place] [address] 01/05/2025 Bamboo flowsheet [facility] [address] [facility] [address] [place] [address] Celine Hernandez, KAILEY 01/05/2025 [facility]/23[facility] [address] [facility] [place] [address] Kait Real MD 11/09/2024 4:00 PM EDT [facility] [address] [facility] [place] [address] Kait Zazueta MD Vertigo (Primary Dx); Acute gastroenteritis 11/09/2024 Bamboo flow[facility] [address] [facility] [place] [address] Kait Zazueta MD 11/09/2024 Travel 10/24/2024 2:30 PM EDT Ancillary Procedure [facility] [address] [place] [address] Other headache syndrome; Numbness and tingling in left arm; Left jaw numbness 10/24/2024 1:45 PM EDT Ancillary Procedure [facility] [address] [place] [address] Numbness and tingling in left arm; Neck pain; Left jaw numbness 10/24/2024 1:00 PM EDT Office Visit [facility] [address] [facility] [address] [place] [place] [phone] Fariha Meredith INTERNATIONAL NURSE Other headache syndrome (Primary Dx); Numbness and tingling in left arm; Malaise and fatigue; Neck pain; Left jaw numbness; Elevated alkaline phosphatase level; Neoplasm of uncertain behavior of brain, 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 More than 4 times per year 04/14/2024 Do you belong to any clubs o r organizations such as denominational groups, unions, fraternal or athletic groups, or [...] Recorded Patient Health Questionnaire-2 Score 0 09/30/2024 [facility] ional Health - Occupational Stress [...] any time in the past [address] [facility], were you homeless or living in a correction (including now)? No 04/14/2024 Comments No Sex and Gender Information Value Date Recorded Sex Assigned at Female 09/16/2022 11:34 AM EDT Legal Sex Female 7:07 PM EDT Gender Identity Female 09/16/2022 11:34 AM EDT Sexual Orientation Not on file Last Filed Vital Signs Vital Sign Reading Time Taken Comments Blood Pressure 128/66 11/09/2024 4:00 PM EDT Pulse 81 11/09/2024 4:00 PM EDT Temperature 36.5 C (97.7 F) 04/15/2024 9:58 AM EST Respiratory Rate 18 11/09/2024 4:00 PM EDT Oxygen Saturation 99% 11/09/2024 4:00 PM EDT Inhaled Oxygen Concentration - - Weight 59.6 kg (131 lb 6.4 oz) 11/09/2024 4:00 P M EDT Height 156.2 cm (5' 1.5 ) 11/09/2024 4:00 PM EDT Body Mass Index 24.43 11/09/2024 4:00 PM EDT Plan of Treatment Upcoming Encounters Date Type Department Care Team (Late st Contact Info) Description 01/13/2025 1:30 PM EDT [facility] [address] [place] [address] Celine Hernandez, KAILEY 10/06/2025 9:45 AM EDT Office Visit [facility] [address] [place] [address] Ghulam Thrasher, [address] [facility] [address] [place] [address] Health Maintenance Due Date Last Done Comments CT Colonography 1960 FIT-DNA 1960 FIT 1960 FOBT 1960 Sigmoidoscopy 1960 Pneumococcal Vaccine: 65+ Ye ars (2 of 2 - PCV) 03/13/2022 03/13/2021, 04/20/2012 Influenza Vaccine (#1) 2025 Mammogram 09/22/2025 09/22/2024, 09/01, 09/01/2022, Additional history exists Colonoscopy 10/13/2034 10/13/2024, 10/02, 10/13/2024, Additional history exists Colorectal Cancer Screening 10/13/2034 Pap Smear Discontinued 09/23/2022 Cervical Cancer Screening Discontinued HPV/Cotest Discontinued 09/29/2023 Procedures Procedure Name Priority Date/Time Associated Diagnosis Comments CT HEAD WO IV CONTRAST STAT 10/24/2024 2:09 PM EDT Other headache syndrome Numbness and tingling in left arm Left jaw numbness XR CERVICAL SPINE AP/LAT/FLEX/EXT/OBLIQ UES Routine 10/24/2024 2:06 PM EDT Numbness and tingling in left arm Neck pain Left jaw numbness COMPREHENSIVE METABOLIC PANEL Routine 10/24/2024 1:34 PM EDT Other headache syndrome Numbness and tingling in left arm Left jaw numbness Elevated alkaline phosphatase level CBC (INCLUDES DIFF/PLT) Routine 10/24/2024 1:34 PM EDT Other headache syndrome Numbness and tingling in left arm Left jaw numbness Malaise and fatigue BI MAMMOGRAM SCREENING TOMOSYNTHESIS BILATERAL 09/22/2024 2:15 PM EDT THINPREP IMAGING PAP W/REFL HPV MRNA E6/E7 Routine 09/29/2023 11:02 AM EDT Encounter for Papanicolaou smear of vagina THINPREP TIS PAP Routine 09/23/2022 10:1 1 AM EDT COLONOSCOPY Routine 07/30/2016 12:00 PM EDT from Last 3 Months or Most Recently Relevant to Health Maintenance Results * CT head wo IV contrast (10/24/2024 2:09 PM EDT) Anatomical Region Laterality Modality Head, Neck Computed Tomogra phy Specimen from head / Unknown 10/24/2024 2:55 PM EDT Narrative 10/24/2024 2:55 PM EDT TITLE OF EXAM: CT HEAD WO IV CONTRAST REASON FOR EXAM: Headaches, left side facial numbness TECHNIQUE: Axial CT of the head COMPARISON: MRI brain 06/10/2024 FINDINGS: Brain and intracranial structures: Predominantly fluid attenuating intra-axial or lesion within the right frontal lobe is similar in size accounting for technique differences, approximately 2.9 x 3.0 x 3.3 cm (TV/AP/CC). This lesion demonstrate some mineralization along prominent septae inferiorly and posteriorly. Otherwise, the the ventricles and extra-axial spaces are normal in size and configuration for age. Mild to moderate burden nonspecific supratentorial white matter hypoattenuating lesions, most commonly a consequence of vascular risk factors. No mass lesion, hemorrhage, or acute infarct. Skull/scalp: Normal. Orbits and face (included portions): Left aphakia/pseudophakia. Paranasal sinuses and mastoid air cells (included portions): Clear. IMPRESSION: 1. No acute intracranial abnormality. 2. Right frontal cystic lesion as described, similar in appearance relative to the recent comparison MRI accounting for modality differences. Question intracranial epidermoid cyst or complex arachnoid cyst. DICTATED ON: 10/24/2024 12:40 PM This report has been electronically signed in approved by the interpreting radiologist. Procedure Note Michaelle Feng MD - 10/24/2024 TITLE OF EXAM: CT HEAD WO IV CONTRAST REASON FOR EXAM: Headaches, left side facial numbness TECHNIQUE: Axial CT of the head COMPARISON: MRI brain 06/10/2024 FINDINGS: Brain and intracranial structures: Predominantly fluid attenuatingintra-axial or lesion within the right frontal lobe is similar in sizeaccounting for technique differences, approximately 2.9 x 3.0 x 3.3 cm(TV/AP/CC). This lesion demonstrate some mineralization along prominentseptae inferiorly and posteriorly. Otherwise, the the ventricles and extra-axial spaces are normal in sizeand configuration for age. Mild to moderate burden nonspecificsupratentorial white matter hypoattenuating lesions, most commonly aconsequence of vascular risk factors. No mass lesion, hemorrhage, or acute infarct. Skull/scalp: Normal. Orbits and face (included portions): Left aphakia/pseudophakia. Paranasal sinuses and mastoid air cells (included portions): Clear. IMPRESSION: 1. No acute intracranial abnormality. 2. Right frontal cystic lesion as described, similar in appearancerelative to the recent comparison MRI accounting for modality differences.Question intracranial epidermoid cyst or complex arachnoid cyst. DICTATED ON: 10/24/2024 12:40 PM This report has been electronically signed in approved by the interpretingradiologist. us Fariha Pump INTERNATIONAL NURSE IMG CT PROCEDURES Final Result * XR CERVICAL SPINE AP/LAT/FLEX/EXT/OBLIQUES (10/24/2024 2:06 PM EDT) Anatomical Region Laterality Modality Spine, C-spine Radiographic Petra ging 10/24/2024 7:13 PM EDT Narrative 10/24/2024 7:13 PM EDT XR CERVICAL SPINE AP/LAT/FLEX/EXT/OBLIQUES Reason for exam: Neck pain, headache, left arm numnbess/tingling, no injury Views: 7 FINDINGS: Alignment: Normal. Atlantoaxial relationship: Normal. Vertebral bodies: Normal in height at each level. Disc levels: Disc space narrowing and marginal spurring are present at C5-6 and C6-7. No evidence of significant canal or foraminal encroachment. Spinal canal: Normal. Posterior elements: Unremarkable. Soft tissues: Unremarkable. Pulmonary apices: Normal. Impression: Mild spondylosis at C5-6 and C6-7. Dictated on: 10/24/2024 5:01 PM This report has been electronically signed and approved by the interpreting Radiologist. Procedure Note Jabari Lin MD - 10/24/2024 XR CERVICAL SPINE AP/LAT/FLEX/EXT/OBLIQUES Reason for exam: Neck pain, headache, left arm numnbess/tingling, noinjury Views: 7 FINDINGS: Alignment: Normal. Atlantoaxial relationship: Normal. Vertebral bodies: Normal in height at each level. Disc levels: Disc space narrowing and marginal spurring are present atC5-6 and C6-7. No evidence of significant canal or foraminalencroachment. Spinal canal: Normal. Posterior elements: Unremarkable. Soft tissues: Unremarkable. Pulmonary apices: Normal. Impression: Mild spondylosis at C5-6 and C6-7. Dictated on: 10/24/2024 5:01 PM This report has been electronically signed and approved by theinterpreting Radiologist. us Fariha Pump INTERNATIONAL NURSE IMG XR PROCEDURES Final Result * CBC and differential (10/24/2024 1:34 PM EDT) WHITE BLOOD CELL COUNT 7.5 3.8 - 10.8 Thousand/u L [facility] RED BLOOD CELL COUNT 4.49 3.80 - 5.10 Million/uL [facility] HEMOGLOBIN 13.1 11.7 - 15.5 g/dL [facility] HEMATOCRIT 40.8 35.0 - 45.0 % [facility] MCV 90.9 80.0 - 100.0 fL [facility] MCH 29.2 27.0 - 33.0 pg [facility] MCHC 32.1 32.0 - 36.0 g/dL [facility] Comment: For adults, a slight decrease in the calculated MCHC value (in the range of 30 to 32 g/dL) is most likely not clinically significant; however, it should be interpreted with caution in correlation with other red cell parameters and the patient's clinical condition. RDW 12.7 11.0 - 15.0 % [facility] PLATELET COUNT 199 140 - 400 Thousand/u L [facility] MPV 11.0 7.5 - 12.5 fL [facility] ABSOLUTE NEUTROPHILS 5,715 1,500 - 7,800 cells/uL [facility] ABSOLUTE LYMPHOCYTES 1,245 850 - 3,900 cells/uL [facility] ABSOLUTE MONOCYTES 428 200 - 950 cells/uL [facility] ABSOLUTE EOSINOPHILS 83 15 - 500 cells/uL [facility] ABSOLUTE BASOPHILS 30 0 - 200 cells/uL [facility] NEUTROPHILS 76.2 % [facility] LYMPHOCYTES 16.6 % [facility] MONOCYTES 5.7 % [facility] EOSINOPHILS 1.1 % [facility] BASOPHILS 0.4 % [facility] Blood Venous blood specimen / Unknown 10/24/2024 1:34 PM EDT 10/24/2024 1:34 PM EDT Narrative Resulting Agency Comment Performing Organization Information Site ID: [id number] Name: [facility] Address: [address] [place] [phone] Director: Chalino Mondragon MD us Fariha Pump INTERNATIONAL NURSE LAB BLOOD ORDERABLES Final Resul t [facility] * (ABNORMAL) Comprehensive metabolic panel (10/24/2024 1:34 PM EDT) [facility] Glucose 105(H) 65 - 99 mg/dL [facility] Comment: Fasting reference interval For someone without known diabetes, a glucose value between 100 and 125 mg/dL is consistent with prediabetes and should be confirmed with a follow-up test. BUN 9 7 - 25 mg/dL [facility] Creatinine 0.67 0.50 - 1.05 mg/dL [facility] EGFR 96 > OR = 60 mL/min/1. 73m2 [facility] BUN/CREATININE RATIO SEE NOTE: 6 - 22 (calc) [facility] Comment: Not Reported: BUN and Creatinine are within reference range. Sodium 142 135 - 146 mmol/L [facility] Potassium, Bld 4.1 3.5 - 5.3 mmol/L [facility] Chloride 106 98 - 110 mmol/L [facility] Carbon Dioxide 27 20 - 32 mmol/L [facility] Calcium 9.2 8.6 - 10.4 mg/dL [facility] PROTEIN, TOTAL 6.7 6.1 - 8.1 g/dL [facility] ALBUMIN 4.4 3.6 - 5.1 g/dL [facility] GLOBULIN 2.3 1.9 - 3.7 g/dL (calc) [facility] ALBUMIN/GLOBULIN RATIO 1.9 1.0 - 2.5 (calc) [facility] BILIRUBIN, TOTAL 0.4 0.2 - 1.2 mg/dL [facility] ALKALINE PHOSPHATASE 105 37 - 153 U/L [facility] AST 18 10 - 35 U/L [facility] ALT 21 6 - 29 U/L [facility] Blood Venous blood specimen / Unknown 10/24/2024 1:34 PM EDT 10/24/2024 1:34 PM EDT Narrative Resulting Agency Comment Performing Organization Information Site ID: [id number] Name: [facility] Address: [address] [place] [address], [address] [place] [phone] Director: Chalino Mondragon MD us Fariha Pump INTERNATIONAL NURSE LAB BLOOD ORDERABLES Final Resul t [facility] * Bilateral screening mammogram with tomosynthesis (09/22/2024 [...] Hauser M.D. 09/22/2024 2:20 PM Dictation Location: [facility] Dictated By: Harshal Hauser II, MD 09/22/24 1415 Signed By: <Electronically signed by Harshal Hauser II, MD in OV> 09/22/24 1420 Narrative 09/22/2024 2:22 PM EDT [facility] [place] [id number] Mammography Report Signed Patient: Valerie Yee MR#: [id number] : 1960 Acct:[id number] Age/Sex: 64 / F Adm Date: 09/22/24 Loc: [place] Room: Type: [facility] Attending Dr: Ghulam Thrasher DO Ordering Provider: Ghulam Thrasher DO Date of Service: 09/22/24 Procedure(s): MM screening mammo BI w/CAD Accession Number(s): ([id number]) MM/MM screening mammo BI w/CAD: SCREENING Copies [...] Procedure Note Harshal Hauser MD - 09/22/2024 [facility] [address] [place], [place] [id number] Mammography Report Signed Patient: Valerie Yee JMR#: [id number] : 9Acct:[id number] Age/Sex: 64 / FAdm Date: 09/22/24 Loc: [place] Room:Type: [facility] Attending Dr: Ghulam Thrasher DO Ordering Provider: Ghulam Thrasher DO Date of Service: 09/22/24 Procedure(s): MM screening mammo BI w/CAD Accession Number(s): ([id number]) MM/MM screening mammo BI w/CAD:SCREENING Copies to: [...] Hauser M.D. 09/22/2024 2:20 PM Dictation Location: [facility] Dictated By: Harshal Hauser II, MD 09/22/24 [...] has been evaluated with computer assisted technology. FOOD CHECKER [facility] Comment: NNO, CT(ASCP) CT screening location: [facility] [place], [address] [place] [address], [place] [address]. (ALWAYS MESSAGE) [facility] Comment: EXPLANATORY NOTE: The [...] Performing Organization Information Site ID: [id number] Name: [facility] Address: [address] [place] [phone] Director: Chalino Mondragon MD Ghulam Thrasher DO LAB CYTOLOGY ORDERABLES Kristi kayla Result [facility] * THINPREP TIS PAP (09/23/2022 [...] INFECTION CANCELED [facility] Comment:Result canceled by t maribel ancillary. COMMENT This Pap test has been evaluated with computer assisted technology. [facility] FOOD CHECKER [facility] Comment: ASD, CT(ASCP) screening location: [place] [address]. REVIEW FOOD CHECKER [facility] Comment: MLH, CT(ASCP) CT screening location: [place] [address]. PATHOLOGIST CANCELED [facility] Comment:Result canceled by t maribel ancillary. (ALWAYS MESSAGE) [facility] Comment: EXPLANATORY NOTE: [...] Performing Organization Information Site ID: [id number] Name: [facility] Address: [address] [place] [address], [address] [place] [phone] Director: Chalino Mondragon MD Ghulam Thrasher DO LAB BLOOD ORDERABLES Final R esult Performing Organization Address City/State/[facility] Co de Phone Number [facility] * Colonoscopy (07/30/2016 12:00 PM EDT) Anatomical Region Laterality Modality Endoscopy 07/30/2016 12:0 0 PM EDT Narrative 07/30/2016 12:00 PM EDT PERFORMED AT [facility] LOCATION:[id number] Normal Procedure Note CONVERSION, GENERIC - 09/18/2022 PERFORMED AT [facility] LOCATION:[id number] Normal Kait Real MD ENDOSCOPY PROCEDURE ORDERABLE S Final Result from Last 3 Months or Most Recently Relevant to Health Maintenance Insurance [employer] [place] Care Teams Pattern Molder Relationship Specialty Start Date End Date Kait Real MD PCP - General 09/16/22 Kait Real MD PCP - ACO Reach 06/10/24
--- OUTSIDE RECORDS SUMMARY | 2025-01-06 08:50 | XMS_ITS | Encounter Summary ---
Author Organization [employer] tem Address [id number] [address] [place] [address] Care Team Providers Care Electronic Pagination System Operator Name Role Phone Kait Real MD Primary Care Provider [phone] Encounter Details Date Type Department Care Team (Late st Contact Info) Description 09/13/2024 Telephone [facility] [address] [place] [address] Augusta Hernández RMA Social History [...] on filedocumented in this encounter Care Teams Electronic Pagination System Operator Relationship Specialty Start Date End Date Ericly, Kait Barrios MD [address] [place] [address] PCP - General Family Medicine 10/07/17 documented as of this encounter
--- OUTSIDE RECORDS SUMMARY | 2025-01-06 08:50 | XMS_ITS | Encounter Summary ---
Author Organization [facility] Address [address] [place] [address] Care Team Providers Care Choker Setter Name Role Phone Kait Real MD Primary Care Provider [phone] Kait Real MD Unavailable [phone] Encounter Details Date Type Department Care Team (Late st Contact Info) Description 01/05/2025 Bamboo [facility] [address] [place] [id number] Celine Hernandez, KAILEY Social History Tobacco Use Types Packs/Day Years [...] week 04/14/2024 How often do you attend [facility] or zoroastrianism services? More than 4 times per year 04/14/2024 Do you belong to any clubs o r organizations such as advent groups, unions, fraternal or athletic groups, or [...] Recorded Patient Health Questionnaire-2 Score 0 09/30/2024 [facility] of Occupat ional Health - Occupational Stress [...] any time in the past 12 m [facility], were you homeless or living in a [...] [facility] [address] [facility] [address] [place] [id number]21 Celine eHrnandez, PT 10/06/2025 9:45 AM EDT Office Visit [facility] [address] [place] [address] Ghulam Thrasher DO [address] [place] [address] documented as of this encounter Visit Diagnoses Not on filedocumented in this encounter Additional Health Concerns Assessment Noted Time PHQ-9 Depression Total Score: 5 11/14/19 23 10:00 AM EDT documented as of this encounter Care Teams Choker Setter Relationship Specialty Start Date End Date Kait Real MD PCP - General 09/16/22 Kait Real MD PCP - ACO Reach 06/10/24 documented as of this encounter
--- OUTSIDE RECORDS SUMMARY | 2025-01-06 08:50 | XMS_ITS | Encounter Summary ---
Author Organization [facility] Address [address] [place] [address] Care Team Providers Care Blast Furnace Tender Name Role Phone Kait Archer MD Primary Care Provider [phone] Kait Archer MD Unavailable [phone] Encounter Details Date Type Department Care [...] often do you attend chur ch or pentecostal services? More than 4 times per year 11/12/2022 Do you belong to any clubs o r organizations such as bahai groups, unions, fraternal or athletic groups, or [...] Recorded Patient Health Questionnaire-2 Score 0 11/13/2022 [facility] Questionnaire Answer Date [...] place to sleep or slept in a chcf (including now)? No 11/12/2022 Comments Unknown Sex [...] Description 01/13/2025 1:30 PM EDT Treatment [facility] [address] [place] [address] Celine Hernandez, KAILEY 10/06/2025 9:45 AM EDT Office Visit [facility] [address] [place] [phone] Ghulam Thrasher DO [address] [place] [address] documented as of this encounter Procedures Procedure Name Priority Date/Time Associated Diagnosis Comments NM TIFFANIE PERF SPECT REST STR 04/13/2023 3:04 PM EST documented in this encounter Results * NM TIFFANIE PERF SPECT REST STR (04/13/2023 3:04 PM EST) Anatomical Region Laterality Modality Other 04/13/2023 3:04 PM EST Narrative 04/13/2023 3:05 PM EST [address] [address] Nuclear Medicine Report Signed Patient: VALERIE YEE MR#: [id number] : 1960 Acct:[id number] Age/Sex: 62 / F ADM Date: 04/13/23 Loc: [place] Attending Dr: Grabiel Mares NP Ordering Physician: Grabiel Mares NP Date of Service: 04/13/23 Procedure(s): NM tiffanie perf SPECT rest str Accession Number(s): [id number] cc: KAIT ARCHER ; Grabiel Mares NP Patient Name: VALERIE YEE MR#: [id number] : 1960 Exam Date: 04/13/2023 Ordering Doctor: MRS. Grabiel Mares NP RADIOLOGY REPORT PROCEDURE: NM TIFFANIE PERF SPECT REST STR COMPARISON: None. INDICATIONS: [...] Signed By: 04/13/23 1505 DD/ 1504 TD/TT: Associate Software Engineer: Procedure Note Radiology, Radiologist, - 04/13/2023 [place] [address] Nuclear Medicine Report Signed Patient: VALERIE YEE JMR#: [id number] : 9Acct:[id number] Age/Sex: 62 / FADM Date: 04/13/23 Loc: [place] Attending Dr: Grabiel Mares NP Ordering Physician: Grabiel Mares NP Date of Service: 04/13/23 Procedure(s): NM tiffanie perf SPECT rest str Accession Number(s): [id number] cc: KAIT ARCHER ; Grabiel Mares NP Patient Name: VALERIE YEE MR#: [id number] : 1960 Exam Date: 04/13/2023 Ordering Doctor: MRS. Grabiel Mares NP RADIOLOGY REPORT PROCEDURE: NM TIFFANIE PERF SPECT REST STR COMPARISON: None. INDICATIONS: [...] M.D. Signed By:04/13/23 1505 DD/ 1504 TD/TT: Associate Software Engineer: [employer] External Data Provider [facility] Final Result documented in this encounter Visit Diagnoses Not on filedocumented in this encounter Additional Health Concerns Assessment Noted Time PHQ-9 Depression Total Score: 5 11/14/19 23 10:00 AM EDT documented as of this encounter Care Teams Blast Furnace Tender Relationship Specialty Start Date End Date Kait Archer MD PCP - General 09/16/22 Kait Archer MD PCP - ACO Reach 06/10/24 documented as of this encounter
--- OUTSIDE RECORDS SUMMARY | 2025-01-06 08:50 | XMS_ITS | Encounter Summary ---
Author Organization [facility] Address [address] [place] [address] Care Team Providers Care Program Clinician Name Role Phone Kait Real MD Primary Care Provider [phone] Kait Real MD Unavailable [phone] Reason for Referral * Rehabilitation - Outpatient (Routine) - Authorized Specialty Diagnoses / Procedures Referred By Harmony sanchez Referred To Contact Physical Therapy Diagnoses Vertigo Procedures LA OFFICE/OUTPATIENT [facility] 60 MINUTES David Serrano NP [address] [place] [address] Phone: tel: fax: Celine Hernandez PT Referral ID Status Reason Start Date Expiration Date Visits Requested Visits Authorized [id number] Authorized Specialty Services Required 01/05/2025 05/03/2025 20 30 Encounter Details Date Type Department Care Team (Late st Contact Info) Description [facility]20[facility] [address] [place] [phone] Kait Real MD Social History Tobacco Use Types Packs/Day Years [...] How often do you attend chur or confucianism services? More than 4 times per year 04/14/2024 Do you belong to any clubs o r organizations such as protestant groups, unions, fraternal or athletic groups, or [...] Recorded Patient Health Questionnaire-2 Score 0 09/30/2024 [facility] - Occupational Stress Questionnaire Answer Date [...] place to sleep or slept in a retirement (including now)? No 11/12/2022 Housing Stability Vital Sign Answer Pepito e Recorded In the last 12 months, was t here a time when you were not able to pay the mortgage or rent on time? No 04/14/2024 In the past 12 months, how m any times have you moved where you were living? 0 04/14/2024 At any time in the past 12 m [facility], were you homeless or living in a retirement (including now)? No 04/14/2024 Comments No Sex and Gender Information Value Date Recorded Sex Assigned at Female 09/16/2022 11:34 AM EDT Legal Sex Female 7:07 PM EDT Gender Identity Female 09/16/2022 11:34 AM EDT Sexual Orientation Not on file documented as of this encounter Miscellaneous Notes * Telephone Encounter - Flaquita Nelson MA - 12/23/2024 3:16 PM EDT I called and left another message notifying pt * Telephone Encounter - Alysha Dumont MA - 12/23/2024 2:09 PM EDT Lmom, please relay Shon msg. * Addendum Note - David Serrano NP - 12/23/2024 1:42 PM EDTAddended by: DAVID SERRANO on: 12/23/2024 01:42 PM Modules accepted: Orders * Telephone Encounter - David Serrano NP - 12/23/2024 1:42 PM EDT Please let her know I placed referral to PT. * Telephone Encounter - Kirt Spring - 12/23/2024 1:09 PM EDT Selam was in for Vertigo a month ago - she is still feeling dizzy . Could she have a referral for PT or what can she do? Selam [phone] documented in this encounter Plan of Treatment Upcoming Encounters Date Type Department Care Team (Late st Contact Info) Description 01/13/2025 1:30 PM EDT Treatment [facility] [address] [place] [address] Celine Hernandez, PT 10/06/2025 9:45 AM EDT Office Visit [facility] [address] [place] [address] Ghulam Thrasher DO [address] [place] [address] Scheduled Referrals Name Type Priority Associated Diagnoses Order Schedule Ambulatory referral to Physical Therapy Outpatient Referral Routine Vertigo Expected: 12/23/2024 (Approximate), Expires: 06/25/2025 documented as of this encounter Visit Diagnoses Diagnosis Vertigo- Primary Dizziness and giddiness documented in this encounter Additional Health Concerns Assessment Noted Time PHQ-9 Depression Total Score: 5 11/14/19 23 10:00 AM EDT documented as of this encounter Care Teams Program Clinician Relationship Specialty Start Date End Date Kait Real MD PCP - General 09/16/22 Kait Real MD PCP - ACO Reach 06/10/24 documented as of this encounter
--- OUTSIDE RECORDS SUMMARY | 2025-01-06 08:50 | XMS_ITS | Encounter Summary ---
Author Organization [facility] Address [address] [place] [address] Care Team Providers Care Gauger Chief Name Role Phone Kait Real MD Primary Care Provider [phone] Kait Rela MD Unavailable [phone] Encounter Details Date Type Department Care Team (Late st Contact Info) Description 09/22/2024 External Result Encounter [facility] External Department Unsolicited Ghulam Thrasher, DO [address] [facility] [address] [place] [address] Social History Tobacco Use Types Packs/Day Years [...] How often do you attend chur or rastafarian services? More than 4 times per year 04/14/2024 Do you belong to any clubs o r organizations such as mandaeism groups, unions, fraternal or athletic groups, or [...] Recorded Patient Health Questionnaire-2 Score 0 04/14/2024 [facility] - Occupational Stress [...] place to sleep or slept in a penitentiary (including now)? No 11/12/2022 Housing Stability Vital Sign Answer Pepito e Recorded In the last 12 months, was t here a time when you were not able to pay the mortgage or rent on time? No 04/14/2024 In the past 12 months, how m any times have you moved where you were living? 0 04/14/2024 At any time in the past 12 m [facility], were you homeless or living in a penitentiary (including now)? No 04/14/2024 Comments No Sex [...] Therapy [address] [place] [address] Celine Hernandez, KAILEY 10/06/2025 9:45 AM EDT Office Visit [facility] [address] [place] [address] Ghulam Thrasher, [address] [place] [address] documented as of this encounter Procedures Procedure [...] Hauser M.D. 09/22/2024 2:20 PM [facility] Dictated By: Harshal Hauser II, MD 09/22/241414 Signed By: <Electronically signed by Harshal Hauser II, MD in OV> 09/22/24 1420 Narrative 09/22/2024 2:22 PM EDT [facility] [address] [place] [address] [address] [place] [address] Mammography Report Signed Patient: Valerie Yee MR#: [id number] : 1960 Acct:[id number] Age/Sex: 64 / F Adm Date: 09/22/24 Loc: [place] Room: Type: REG CLI Attending Dr: Ghulam Thrasher DO Ordering Provider: Ghulam Thrasher DO Date of Service: 09/22/24 Procedure(s): MM screening mammo BI w/CAD Accession Number(s): ([id number]) MM/MM screening mammo BI w/CAD: SCREENING Copies [...] Procedure Note Harshal Hauser MD - 09/22/2024 [place] [address] Mammography Report Signed Patient: Valerie Yee JMR#: [id number] : 9Acct:[id number] Age/Sex: 64 / FAdm Date: 09/22/24 Loc: [place] Room:Type: REG CLI Attending Dr: Ghulam Thrasher DO Ordering Provider: Ghulam Thrasher DO Date of Service: 09/22/24 Procedure(s): MM screening mammo BI w/CAD Accession Number(s): ([id number]) MM/MM screening mammo BI w/CAD:SCREENING Copies to: [...] Hauser M.D. 09/22/2024 2:20 PM Dictation Location: [facility] Dictated By: Harshal Hauser II, MD [...] documented as of this encounter Care Teams Gauger Chief Relationship Specialty Start Date End Date Kait Real MD PCP - General 09/16/22 Kait Real MD PCP - ACO Reach 06/10/24 documented as of this encounter
[2025-01-06 10:14] LABS: Alanine Aminotransferase 42 U/L (14-59); Aspartate Amino Transferase 25 U/L (15-37); Cholesterol 228 mg/dL (<=200); HDL Cholesterol 113 mg/dL (40-60); Triglycerides 40 mg/dL (<=150); VLDL CHOLESTEROL 8.0 mg/dL
== END 2025-01-06 08:44 | disposition home or self-care (01) ==
LOC: LAB 08:45
PROVIDERS: PCP Family Medicine; Visit Provider Internal Medicine Cardiovascular Disease
DX: E78.00 Pure hypercholesterolemia, unspecified (principal)
CPT/HCPCS: 36415; 80061; 84450; 84460